=== PATIENT | male | born 1960 | race African-American/Black ===

== ENCOUNTER → 2017-01-07 | Outpatient (CLI) | payer OTHER ==
[2017-01-07 15:54] LABS: CH 30.4; CHCM 34.8; HCT 43.6 % (39.0-53.0); HDW 2.85; HGB 15.9 gm/dL (13.0-17.5); MCH 31.9 pg (25.0-35.0); MCHC 36.4 g/dL (31.0-37.0); MCV 87.7 fL (80.0-100.0); Mean Platelet Volume 6.9; RBC 4.97 m/uL (4.30-5.90); RDW 13.6 % (11.5-15.5); WBC 6.6 k/uL (3.8-10.6)
[2017-01-07 15:57] LABS: Appearance,Urine Clear (Clear); Bilirubin,Urine Negative (Negative); Glucose,Urine (UA) Negative (Negative); Ketones,Urine Negative (Negative); Leukocyte Esterase,Urine Negative (Negative); Nitrite,Urine Negative (Negative); PH, Urine 6.5 (5.0-8.0); Particle Count 613; Protein,Urine 1+ (Negative); Specific Gravity,Urine 1.014 (1.001-1.035); Squamous Epithelial Cell,Urine <1 /hpf (0-4); UA Billing (MACRO vs. MICRO) MICRO; WBC,Urine 1 /hpf (0-5)
[2017-01-07 16:02] LABS: Partial Thromboplastin Time 27.5 sec (22.0-30.0); Prothrombin Time 10.2 sec (9.0-12.0)
[2017-01-07 16:10] LABS: ALT 93 U/L (21-72); AST 76 U/L (17-59); Alkaline Phosphatase 129 U/L (38-126); Anion Gap 10 mmol/L; Blood Urea Nitrogen 12 mg/dL (9-20); Calcium 9.9 mg/dL (8.4-10.2); Carbon Dioxide 36 mmol/L (22-30); Chloride 94 mmol/L (98-107); Glucose 118 mg/dL (74-99); Non-African American GFR(MDRD) >60 (>60 ml/min/1.73 sqM); Potassium 3.8 mmol/L (3.5-5.1); Sodium 140 mmol/L (137-145); Total Bilirubin 0.8 mg/dL (0.2-1.3)
== END | disposition home or self-care (01) ==
LOC: LABPAT 15:08
PROVIDERS: ATTEND Orthopaedic Surgery
DX: Z01.810 Encounter for preprocedural cardiovascular examination (principal); M17.12 Unilateral primary osteoarthritis, left knee; Z01.812 Encounter for preprocedural laboratory examination
CPT/HCPCS: 80053; 81001; 85027; 85610; 85730; 87070

== ENCOUNTER 2017-01-25 07:30 | Inpatient (IN) | payer OTHER ==
[2017-01-12 15:24] VITALS: BMI 34.9
[~2017-01-25 07:30] MED LIST: ACETAMINOPHEN TAB 500 MG TAB PO ONE; DEXAMETHASONE SOD PHOSPHATE 10 MG/ML 1 ML VIAL IV ONE; MELOXICAM 7.5 MG TAB PO ONE; MIDAZOLAM 2 MG/2 ML VIAL IV PRN; ONDANSETRON 4 MG/2 ML VIAL IVP ONE; SCOPOLAMINE 1.5MG/72HR PATCH TRANSDERM ONE; TRANEXAMIC ACID 1,000 MG in SODIUM CHLORIDE 0.9% 100 ML IVPB ONE; VANCOMYCIN 1,500 MG in SODIUM CHLORIDE 0.9% 250 ML IVPB ONE; ceFAZolin 2 GM in SODIUM CHLORIDE 0.9% 100 ML IVPB ONE
[2017-01-25] MEDS: LACTATED RINGERS 1,000 ML IV SCH (09:20)
[2017-01-25] MEDS ORDERED: LIDOCAINE 1% 20 ML VIAL (10MG/ML) FOR IV START INTRADERMA ONE (09:26)
[2017-01-25] MEDS ORDERED: fentaNYL (PF) 50 MCG/ML 2 ML AMP IVP ONE (10:11)
[2017-01-25] MEDS ORDERED: ROPIVACAINE 1,100 MG, SODIUM CHLORIDE 0.9% 330 ML MISCELLANE PRN ×2 (10:39)
--- NOTE | 2017-01-25 10:42 | P.ONQ ---
Anesthesiology Proc Note - PNB - Peripheral Nerve Block Performed Left Adductor Canal Infusion Procedure Start Time: 10:10 Procedure Stop Time: 10:20 Indication: Acute Post-Operative Pain Specifically requested for management of pain by DrChandrakant: Mitesh Le Sedation Type: Sedate with meaningful contact maintained Preparation: Sterile Dressing Position: Supine Catheter: Indwelling Needle Types: Other (see comment) Needle Size: 100mm (4") (PAJUNK) Needle Gauge: 20 Technique: Ultrasound Injectate: 0.5% Ropivacaine (see comment for volume) (20 ml) Blood Aspirated: No Pain Paresthesia on Injection Noted: No Resistance on Injection: Normal Events: Uneventful and Well Tolerated
[2017-01-25] MEDS ORDERED: fentaNYL (PF) 50 MCG/ML 2 ML AMP ONE (11:04)
[2017-01-25] MEDS ORDERED: PHENYLEPHRINE-0.9% NACL SYG 1 MG/10 ML SYRINGE ONE (11:04)
[2017-01-25] MEDS ORDERED: MIDAZOLAM 2 MG/2 ML VIAL ONE (11:04)
[2017-01-25] MEDS ORDERED: PROPOFOL 10 MG/ML 20 ML VIAL IV ONE (11:04)
[2017-01-25] MEDS ORDERED: SODIUM CHLORIDE 0.9% 100 ML BAG ONE (11:04)
[2017-01-25] MEDS ORDERED: ePHEDrine SULFATE/0.9% NACL/PF 50 MG/5 ML SYRINGE IV ONE (11:04)
[2017-01-25] MEDS ORDERED: TRANEXAMIC ACID 1,000 MG/10 ML VIAL ONE (11:04)
[2017-01-25] MEDS ORDERED: ROPIVACAINE 246.25 MG, EPINEPHrine 0.5 MG, KETOROLAC 30 MG, cloNIDine HCL/PF 80 MCG, WA... MISCELLANE ONE ×5 (11:10)
[2017-01-25] MEDS ORDERED: ceFAZolin 3,000 MG in SODIUM CHLORIDE 0.9% IRRIGATIO 3,000 ML IRRIGATION ONE (11:46)
[2017-01-25] MEDS ORDERED: LACTATED RINGERS 1,000 ML IV ONE ×2 (12:13)
--- NOTE | 2017-01-25 13:38 | P.OP ---
Date of Procedure: 01/25/17 Preoperative Diagnosis: Failed left total knee arthroplasty Postoperative Diagnosis: Failed left total knee arthroplasty Procedure(s) Performed: Revision left total knee arthroplasty Implants: [employer] Legion Oxinium constrained femoral component size 5, left [employer] Legion press-fit stem, straight 14 mm x 160 mm [employer] legion revision tibial baseplate size 5, left [employer] Legion offset teacher education director, 6 mm [employer] Legion press-fit stem, straight 14 mm x 160 mm Ly[employer]hew size 18 mm Mary Anne II XLPE constrained articular insert, size 5-6 All components were cemented using Leora Simplex P bone cement with tobramycin 2 The articulation is ceramic on polyethylene. Anesthesia: spinal Surgeon: Mitesh Le Legal Summer Intern #1: Grace Cox Estimated Blood Loss (ml): 100 Pathology: other (Frozen section and cultures 2) Condition: stable Disposition: PACU Indications for Procedure: This is a 56-year-old gentleman whose had a prior left total knee arthroplasty. He continues to have pain and instability in his left knee. X-rays demonstrate gross loosening of the tibial and femoral components. After discussion of the surgical nonsurgical treatment options with her at length, he wishes to proceed with revision left total knee arthroplasty and informed consent was obtained. Operative Findings: The operative findings show a grossly loose tibial component. Frozen section demonstrated no acute inflammation. Description of Procedure: Patient was seen in the preoperative area consent was reviewed and operative site was marked with a skin marker. An adductor canal pain catheter was placed by anesthesia in the preoperative area. Patient was then brought to the operating room and given preoperative antibiotics intravenously. A spinal anesthetic was administered by the anesthesia department. A tourniquet was placed on the upper thigh and the lower extremity was prepped and draped in usual sterile fashion. A gram of transexamic acid was given. A universal timeout was then performed which confirmed the patient's name, surgical site, ALLERGIES, and consent. The lower extremity was then exsanguinated and tourniquet was inflated to 250 mmHg. A standard and anterior midline approach to the knee was performed, with the prior scar being excised. The skin and subcutaneous tissue was dissected down to the patellar tendon. A medial parapatellar arthrotomy was then performed. The knee was then extended. The patella was difficult to yazmin, and a quadriceps snip was performed. There was a moderate amount of clear fluid in the knee joint, and this was cultured 2. Synovium from the knee was removed, and sent for frozen section. The frozen section came back as no acute inflammation. Scar tissue was extensively debrided from the knee. The patella was then everted and the knee was flexed. On gross visual inspection the femoral component was well fixed as well as patellar component. The tibial component was grossly loose with significant subsidence. The femoral component was then removed without significant bone loss. This was done by disrupting the implant cement interface with a small oscillating saw. After the femoral component was removed, the tibial component was then removed with a bone punch. There is found to be significant subsidence and loss of intramedullary bone, although the cortical bone of the tibia was well preserved. The femoral canal was then opened with the appropriate drill. A wood milling machine hand was then used to ream the femoral canal to the final size of 20 mm x 120 mm. The intramedullary femoral cutting guide was then placed and set for 6 of valgus. The distal femoral cutting block was then pinned in place, and the distal femur was then cut. A very minimal amount of bone was removed. The cutting block was then removed and the cut was checked for flatness. Next, the sizing guide was then placed and set for 3 external rotation based off of the epicondylar axis and Whitesides line. After the femur was sized, the appropriate 4-in-1 cutting block was then pinned in place. The anterior condyles were cut without notching. The posterior and chamfer cuts were performed while protecting the collateral ligaments. Next, the box cutting guide was then placed. The appropriate reamer was used to open up the box, as well as appropriate chisel. The cutting block was then removed as well as the femoral reamer. Attention was then directed to the tibia. The tibial canal was located with the appropriate drill. This was then followed by hand reamers to up to the size of 14 mm x 160 mm . The intramedullary tibial cutting guide was then placed, set for the appropriate rotation, slope, and depth of resection. The proximal tibia cutting guide was then pinned in place. Proximal tibia was then cut and sized. The offset reamer was utilized due to the location of the tibial canal in relation to the tibial component. Next trials were then placed with the appropriate-sized insert. The knee was able to fully extend and flex to 120 and was stable throughout all range of motion. The patellar component was then inspected and found to be well fixed. The cut surfaces of bone were then irrigated with pulsatile lavage. The posterior structures were injected with the ropivacaine solution. The knee was also irrigated with Irrisept solution. The components were then opened, the cement was mixed, and the components were then cemented in place. The cement was allowed to harden with the knee in full extension. While the cement was hardening, the remaining soft tissues were then injected with a ropivacaine solution, which consisted of 246.25 mg of ropivacaine, 0.5 mg of epinephrine, 30 mg of Toradol, 80 g of clonidine, and 48.45 mL of sterile water, for a total of 100 mL of fluid injected. After the cemented hardened. The tourniquet was released, and hemostasis was obtained. A second gram of transexamic acid was given. The knee was again irrigated. The knee was again taken through range of motion and found to be stable throughout all range of motion of 0-130 , and the patella tracked normally. The fascia was then closed with #2 strata fix suture. The subcutaneous tissue was closed with 3-0 Vicryl and 3-0 strata fix. Dermabond tape was used for the skin and placed with the knee in flexion. The patient was placed in a sterile dressing. Patient was then transferred to recovery room in stable condition. The assistant manager of operations KLEVER Manriquez was required due the complexity surgery and the need for a skilled neurosurgical nurse. She assisted in positioning, draping, retraction, and closure of the wound.
[2017-01-25] MEDS ORDERED: DIAZEPAM 5 MG TAB PO PRN ×2 (14:03)
[2017-01-25] MEDS ORDERED: HYDROcodone/APAP 7.5-325MG 1 EACH TAB PO PRN ×2 (14:03)
[2017-01-25] MEDS ORDERED: HYDROmorphone 1 MG/ML 1 ML SYRINGE IVP PRN ×2 (14:03)
[2017-01-25] MEDS ORDERED: NA PHOS,M-B/NA PHOS,DI-BA 133 ML ENEMA RECTAL PRN (14:03)
[2017-01-25] MEDS ORDERED: ONDANSETRON 4 MG/2 ML VIAL IVP PRN (14:03)
[2017-01-25] MEDS ORDERED: MAGNESIUM HYDROXIDE 2,400 MG/10 ML CUP PO PRN (14:03)
[2017-01-25] MEDS ORDERED: NALOXONE 0.4 MG/ML 1 ML VIAL IV PRN (14:03)
[2017-01-25] MEDS ORDERED: BISACODYL 10 MG SUPP RECTAL PRN (14:03)
--- NOTE | 2017-01-25 14:33 | XR ---
EXAMINATION TYPE: XR knee limited LT DATE OF EXAM: 01/25/2017 CLINICAL HISTORY: EXAMINATION TYPE: XR knee limited LT DATE OF EXAM: 01/25/2017 CLINICAL HISTORY: Postoperative evaluation Two views of the left knee are submitted. Identified are changes of total knee arthroplasty with fem oral and tibial components appearing well seated. Postsurgical soft tissue changes are noted. Align ment is anatomic.
[2017-01-25] MEDS: HYDROmorphone 1 MG/ML 1 ML SYRINGE IVP PRN ×6 (14:34→20:09)
[2017-01-25] MEDS: SODIUM CHLORIDE 0.9% 1,000 ML IV SCH (16:35)
[2017-01-25] MEDS: ceFAZolin 2 GM in SODIUM CHLORIDE 0.9% 100 ML IVPB SCH ×2 (17:37→23:30)
[2017-01-25] MEDS: hydrOXYzine PAMOATE 25 MG CAP PO PRN (18:04)
[2017-01-25] MEDS: oxyCODONE-APAP 10-325MG 1 EACH TAB PO PRN ×2 (18:08→22:17)
[2017-01-25] MEDS ORDERED: SERTRALINE 50 MG TAB PO PRN (20:37)
[2017-01-25] MEDS ORDERED: BACILLUS COAGULANS PO SCH (20:45)
[2017-01-25] MEDS ORDERED: hydrOXYzine PAMOATE 25 MG CAP PO PRN (21:57)
[2017-01-25] MEDS: amLODIPine 10 MG TAB PO SCH (22:03)
[2017-01-25] MEDS: NICOTINE 21MG/24HR PATCH TRANSDERM SCH (22:03)
[2017-01-25] MEDS: SENNOSIDES-DOCUSATE SODIUM 1 EACH TAB PO SCH (22:03)
[2017-01-25] MEDS: clonazePAM 0.5 MG TAB PO SCH (22:04)
[2017-01-25] MEDS: oxyCODONE ER 15 MG TAB.ER.12H PO SCH (22:04)
[2017-01-25] MEDS: cloNIDine HCL 0.2 MG TAB PO SCH (22:04)
[2017-01-25] MEDS: MIRTAZAPINE 15 MG TAB PO SCH (22:05)
[2017-01-25] MEDS: ASPIRIN 325 MG TAB PO SCH (22:05)
[2017-01-25] MEDS: CYCLOBENZAPRINE 10 MG TAB PO PRN (23:30)
[2017-01-26] MEDS: oxyCODONE-APAP 10-325MG 1 EACH TAB PO PRN ×5 (02:32→20:53)
[2017-01-26] MEDS: SODIUM CHLORIDE 0.9% 1,000 ML IV SCH (05:42)
[2017-01-26] MEDS: LACTATED RINGERS 1,000 ML IV SCH (06:13)
[2017-01-26] MEDS: hydrOXYzine PAMOATE 25 MG CAP PO PRN ×4 (06:27→20:46)
[2017-01-26 07:52] LABS: ALT 72 U/L (21-72); AST 44 U/L (17-59); Alkaline Phosphatase 76 U/L (38-126); Anion Gap 10 mmol/L; Blood Urea Nitrogen 21 mg/dL (9-20); Carbon Dioxide 25 mmol/L (22-30); Chloride 101 mmol/L (98-107); Glucose 132 mg/dL (74-99); Non-African American GFR(MDRD) >60 (>60 ml/min/1.73 sqM); Potassium 4.2 mmol/L (3.5-5.1); Sodium 136 mmol/L (137-145); Total Bilirubin 0.6 mg/dL (0.2-1.3); Total Protein 6.4 g/dL (6.3-8.2)
[2017-01-26 08:06] LABS: Basophils # (A) 0.1 k/uL (0-0.2); Basophils % (A) 1 %; CH 30.6; CHCM 32.7; Eosinophils # (A) 0.1 k/uL (0-0.7); Eosinophils % (A) 0 %; HDW 2.65; Luc # (Auto) 0.24; Luc % (Auto) 1; Lymphocytes # (A) 1.5 k/uL (1.0-4.8); Lymphocytes % (A) 9 %; MCH 30.3 pg (25.0-35.0); MCHC 32.2 g/dL (31.0-37.0); Mean Platelet Volume 7.9; Monocytes # (A) 0.9 k/uL (0-1.0); Monocytes % (A) 5 %; Neutrophils # (A) 14.7 k/uL (1.3-7.7); Neutrophils % (A) 84 %; RBC 3.93 m/uL (4.30-5.90); RDW 14.7 % (11.5-15.5); WBC 17.6 k/uL (3.8-10.6); WBC (Perox) 18.32
[2017-01-26 08:08] LABS: HGB 11.9 gm/dL (13.0-17.5); MCV 94.1 fL (80.0-100.0)
[2017-01-26] MEDS: NICOTINE 21MG/24HR PATCH TRANSDERM SCH (08:41)
[2017-01-26] MEDS: ASPIRIN 325 MG TAB PO SCH ×2 (08:41→20:41)
[2017-01-26] MEDS: clonazePAM 0.5 MG TAB PO SCH ×2 (08:41→20:41)
[2017-01-26] MEDS: ceFAZolin 2 GM in SODIUM CHLORIDE 0.9% 100 ML IVPB SCH ×2 (08:42→15:25)
[2017-01-26] MEDS: cloNIDine HCL 0.2 MG TAB PO SCH ×2 (08:43→20:41)
[2017-01-26] MEDS: MELOXICAM 7.5 MG TAB PO SCH (08:43)
[2017-01-26] MEDS: HYDROCHLOROTHIAZIDE 25 MG TAB PO SCH (08:44)
[2017-01-26] MEDS ORDERED: hydrOXYzine PAMOATE 25 MG CAP PO SCH (09:00)
--- NOTE | 2017-01-26 09:02 | P.PN ---
Subjective Principal diagnosis: This is a 56-year-old male who is status post left revision total knee arthroplasty. This is postoperative day #1. Patient is seen and evaluated at bedside with Dr. Mitesh Le. Patient has noticed quite a bit of drainage from the left knee. Otherwise patient has no new complaints today. Objective - Vital Signs Vital signs: Vital Signs Temp 98.2 F 01/26/17 08:34 Pulse 99 01/26/17 08:34 Resp 16 01/26/17 08:34 BP 137/88 01/26/17 08:34 Pulse Ox 97 01/26/17 08:34 Intake & Output 01/25/17 01/26/17 01/26/17 18:59 06:59 18:59 Intake Total 1751 1460 Output Total 100 Balance 1651 1460 Weight 104.326 kg Intake: IV 1751 Intake, IV Titration 870 Amount Sodium Chloride 0.9% 1, 770 000 ml @ 70 mls/hr IV . [id number] [facility] Rx#:[id number] ceFAZolin 2 gm In Sodium 100 Chloride 0.9% 100 ml @ 100 mls/hr IVPB Q8HR [facility] Rx#:[id number] Oral 590 Output: Estimated Blood Loss 100 Other: # Voids 1 - Exam Vital signs are stable. Patient is in no acute distress and is alert and oriented 3. Calf is soft and nontender. Incision is clean and intact. There was a moderate amount of drainage on the dressing when it was changed. Compartments are soft. Neurovascular status intact. Patient has full foot and ankle motion. - Labs CBC & Chem 7: 01/26/17 07:16 01/26/17 07:16 Labs: Abnormal Lab Results - Last 24 Hours (Table) 01/26/17 01/26/17 Range/Units 07:16 07:16 WBC 17.6 H (3.8-10.6) k/uL RBC 3.93 L (4.30-5.90) m/uL Hgb 11.9 L D (13.0-17.5) gm/dL Hct 37.0 L (39.0-53.0) % Neutrophils # 14.7 H (1.3-7.7) k/uL Sodium 136 L (137-145) mmol/L BUN 21 H (9-20) mg/dL Glucose 132 H (74-99) mg/dL Microbiology - Last 24 Hours (Table) 01/25/17 11:39 Gram Stain - Preliminary Knee - Left Wound Culture - Preliminary 01/25/17 11:39 Gram Stain - Preliminary Knee - Left Wound Culture - Preliminary 01/25/17 11:39 Anaerobic Culture - Preliminary Knee - Left 01/25/17 11:39 Anaerobic Culture - Preliminary Knee - Left Assessment and Plan (1) Primary osteoarthritis of left knee Status: Acute (2) S/P total knee arthroplasty Status: Acute Plan: #1 Continue with routine postoperative care. Hold CPM until drainage subsides. #2 Anticoagulation with aspirin. #3 Physical therapy today. #4 Appreciate input from medicine. #5 Anticipate discharge to rehab Tuesday.
--- NOTE | 2017-01-26 12:02 | CONS ---
REASON FOR CONSULTATION: Advice regarding hypertension and other multiple medical issues requested by Dr. Le. HISTORY OF PRESENT ILLNESS: This 56-year-old gentleman with a past medical history of hypertension, history of hepatitis C, history of anxiety and depression being followed by Dr. Mascorro in the outpatient setting. Patient underwent revision of left knee joint arthroplasty for failed left total knee arthroplasty by Dr. Le. There is no history of any fever, rigors or chills. No history of headache, loss of consciousness or seizures. PAST MEDICAL HISTORY: Hypertension, history of DJD, history of hepatitis C, history of anxiety and depression. Medications prior to admission include home medications are: 1. Oxycodone 10 mg q.4 p.r.n. 2. Oxycodone ER 30 mg p.o. q.h.s. 3. Vistaril 25 mg b.i.d. and p.r.n. 4. Klonopin 0.5 mg p.o. b.i.d. 5. Catapres 0.2 b.i.d. 6. Norvasc 10 mg q.h.s. 7. Naprosyn 500 mg p.o. b.i.d. p.r.n. 8. Remeron 15 mg p.o. q.h.s. 9. Imodium A-D 2 mg p.o. b.i.d. 10. Motrin 600 mg p.o. q.h.s. p.r.n. 11. Hydrochlorothiazide 25 mg p.o. daily. 12. Flonase 1 spray daily. 13. Pennsaid 1 spray topical q.4 p.r.n. 14. Flexeril 10 mg t.i.d. p.r.n. 15. Bacillus coagulans 1 tablet p.o. daily. Allergies are none. FAMILY HISTORY: No history of any heart disease or strokes in the family. 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 No history of smoking. No history of alcohol intake. REVIEW OF SYSTEMS: ENT: No diminished hearing or diminished vision. CARDIOVASCULAR SYSTEM: As mentioned earlier. RESPIRATORY SYSTEM: As mentioned earlier. GI: No nausea. : No dysuria or urinary retention. NERVOUS SYSTEM: No numbness or weakness. ALLERGY/IMMUNOLOGY: No asthma or hayfever. MUSCULOSKELETAL: As mentioned. HEMATOLOGY/ONCOLOGY: No history of anemia. ENDOCRINE: No history of diabetes or hypothyroidism. CONSTITUTIONAL: As mentioned earlier. DERMATOLOGY: Negative. RHEUMATOLOGY: Negative. PSYCHIATRY: As mentioned earlier. PHYSICAL EXAMINATION: Patient is alert and oriented x3. Pulse is 114. Blood pressure is 107/58, respirations 16, temperature 96.1, pulse ox 92% on room air. HEENT: Conjunctivae normal. NECK: No jugular venous distention. CARDIOVASCULAR: S1 and S2 muffled. RESPIRATORY: Breath sounds diminished at the bases. No rhonchi, no crackles. ABDOMEN: Soft, nontender. LEGS: Status post knee arthroplasty. NERVOUS SYSTEM: Higher function as mentioned. Moves all 4 limbs. No focal deficits. LYMPHATICS: No lymphadenopathy of the neck, axillae or groin. SKIN: No ulcers, rashes or bleeding. Labs are at this time shows previous labs available on 01/07 showed AST 76, ALT 93 and C reactive protein is 11.5. The UA noted. ASSESSMENT: 1. Status post revision left total knee arthroplasty for failed left total knee arthroplasty. 2. Increased AST, ALT with chronic hepatitis C. 3. History of hypertension. 4. History of degenerative joint disease. 5. Anxiety and depression. RECOMMENDATIONS AND DISCUSSION: In this 56-year-old gentleman who presented with multiple complex medical issues, we will monitor the patient closely. Continue the current medications. Continues symptomatic treatment. Resume the home medications, Habitrol patch, DVT prophylaxis, incentive spirometry. Will follow the patient closely. Patient may be asked to follow up with Dr. Mascorro closely after discharge. Thank you Dr. Le for letting us participate in the care of this patient. I recommend a repeat CBC, CMP to ensure normalcy. The rest of the follow up by Dr. Mascorro in the outpatient setting. MADELINED
[2017-01-26 12:04] LABS: Appearance,Urine Clear (Clear); Bilirubin,Urine Negative (Negative); Glucose,Urine (UA) Negative (Negative); Ketones,Urine Negative (Negative); Leukocyte Esterase,Urine Negative (Negative); Nitrite,Urine Negative (Negative); PH, Urine 5.5 (5.0-8.0); Protein,Urine Trace (Negative); Specific Gravity,Urine 1.018 (1.001-1.035); UA Billing (MACRO vs. MICRO) CHEM; Urobilinogen,Urine <2.0 mg/dL (<2.0)
--- NOTE | 2017-01-26 12:27 | P.PN ---
Progress Note - Text . Postoperative day # 1 status post total knee arthroplasty, under spinal anesthesia, and adductor canal catheter placed for postoperative analgesia, currently at ropivacaine 0.2% 8 mL per hour and continuous infusion, catheter site local. There is no erythema, and there is no tenderness, visual analogue scale is 8/10, patient using oral pain medication for breakthrough pain , OxyContin extended release 15 mg, and Dilaudid IV, . Assessment and plan= Acute postoperative pain, patient had a history of chronic pain syndrome , and he was treated as an outpatient with oral pain medication oxycodone 30 mg every 6 hours , patient currently on OxyContin 15 mg , and adductor canal catheter for pain control, we'll continue the same management.
[2017-01-26] MEDS: CYCLOBENZAPRINE 10 MG TAB PO PRN ×2 (12:59→21:11)
[2017-01-26] MEDS: HYDROmorphone 1 MG/ML 1 ML SYRINGE IVP PRN ×2 (14:22→18:54)
[2017-01-26] MEDS: FLUTICASONE 50MCG/SPRAY NASAL 16GM EA NOSTRIL SCH (15:02)
--- NOTE | 2017-01-26 18:33 | PN ---
DATE OF SERVICE: 01/26/17 This 56 -year-old gentleman admitted after revision of left total knee joint arthroplasty is improving significantly. The patient is being closely monitored. No chest pain. No palpitations. No fever. White count is elevated. On exam, the patient is alert and oriented times three. Pulse 99. Blood pressure 137/80. Respiratory rate 16. Temperature 98.2 degrees. Pulse ox 97 % on room air. HEENT: Conjunctivae normal. Oral mucosa moist. Neck: No JVD. CARDIOVASCULAR: S1, S2. Respiratory: Breath sounds diminished at the bases. No rhonchi. Abdomen soft, nontender. LEGS: Status post surgery. DAMAGE APPRAISER: No focal deficits. LABS: WBC 7.7, hemoglobin 9.3. ASSESSMENT: 1. Status post revision left total knee joint arthroplasty with failed left total knee arthroplasty. 2. Increased WBC. 3. Increased AST/ALT with chronic hepatitis C. 4. History of hypertension. 5. History of degenerative joint disease. 6. Anxiety, depression. RECOMMENDATIONS AND DISCUSSION: Recommend to continue the current medications, continue symptomatic treatment, otherwise I recommend UA which is normal. I also recommend repeat labs in the morning. Continue the rest of the medications. Follow-up with Orthopedic surgery as well. Further recommendations to follow. MADELINED
[2017-01-26] MEDS: amLODIPine 10 MG TAB PO SCH (20:41)
[2017-01-26] MEDS: MIRTAZAPINE 15 MG TAB PO SCH (20:42)
[2017-01-26] MEDS: oxyCODONE ER 15 MG TAB.ER.12H PO SCH (20:42)
[2017-01-26] MEDS: SENNOSIDES-DOCUSATE SODIUM 1 EACH TAB PO SCH (20:42)
[2017-01-27] MEDS: ceFAZolin 2 GM in SODIUM CHLORIDE 0.9% 100 ML IVPB SCH ×2 (00:24→09:08)
[2017-01-27] MEDS: HYDROmorphone 1 MG/ML 1 ML SYRINGE IVP PRN ×3 (01:01→22:49)
[2017-01-27] MEDS: hydrOXYzine PAMOATE 25 MG CAP PO PRN ×3 (05:53→18:01)
[2017-01-27] MEDS: oxyCODONE-APAP 10-325MG 1 EACH TAB PO PRN ×3 (05:53→18:01)
[2017-01-27 07:02] LABS: Basophils # (A) 0.1 k/uL (0-0.2); Basophils % (A) 1 %; CH 31.1; CHCM 33.9; Eosinophils # (A) 0.5 k/uL (0-0.7); Eosinophils % (A) 4 %; HCT 38.7 % (39.0-53.0); HDW 2.65; HGB 12.6 gm/dL (13.0-17.5); Luc % (Auto) 2; Lymphocytes # (A) 3.2 k/uL (1.0-4.8); Lymphocytes % (A) 28 %; MCH 29.9 pg (25.0-35.0); MCHC 32.4 g/dL (31.0-37.0); MCV 92.4 fL (80.0-100.0); Mean Platelet Volume 7.9; Monocytes # (A) 0.7 k/uL (0-1.0); Monocytes % (A) 6 %; Neutrophils # (A) 6.7 k/uL (1.3-7.7); Neutrophils % (A) 59 %; RBC 4.19 m/uL (4.30-5.90); WBC 11.3 k/uL (3.8-10.6); WBC (Perox) 11.02
[2017-01-27] MEDS: SODIUM CHLORIDE 0.9% 1,000 ML IV SCH ×2 (08:24→09:17)
[2017-01-27] MEDS: LACTATED RINGERS 1,000 ML IV SCH (08:25)
--- NOTE | 2017-01-27 08:54 | P.PN ---
Subjective Principal diagnosis: Status post revision left total knee arthroplasty. This is a 56-year-old male who is status post left revision total knee arthroplasty. This is postoperative day #2. Patient states his pain is under control. Patient is still noticed some drainage from the wound. Patient has been up and walking without difficulty. Patient has no new complaints today. Objective - Vital Signs Vital signs: Vital Signs Temp 98.2 F 01/27/17 02:08 Pulse 107 H 01/27/17 02:08 Resp 17 01/27/17 02:08 BP 139/74 01/27/17 02:08 Pulse Ox 95 01/27/17 02:08 Intake & Output 01/26/17 01/27/17 01/27/17 18:59 06:59 18:59 Intake Total 920 210 600 Output Total 600 Balance 920 -390 600 Intake: Intake, IV Titration 560 210 Amount Sodium Chloride 0.9% 1, 560 210 000 ml @ 70 mls/hr IV . [id number] [facility] Rx#:[id number] Oral 360 600 Output: Urine 600 Other: Voiding Method Toilet Urinal - Exam Vital signs are stable. Patient is in no acute distress and is alert and oriented 3. Calf is soft and nontender. Incision is clean and intact. There was a moderate amount of drainage on the dressing when it was changed and this has improved since yesterday. Compartments are soft. Neurovascular status intact. Patient has full foot and ankle motion. - Labs CBC & Chem 7: 01/27/17 06:37 01/26/17 07:16 Labs: Abnormal Lab Results - Last 24 Hours (Table) 01/26/17 01/27/17 Range/Units 11:30 06:37 WBC 11.3 H (3.8-10.6) k/uL RBC 4.19 L (4.30-5.90) m/uL Hgb 12.6 L (13.0-17.5) gm/dL Hct 38.7 L (39.0-53.0) % Urine Protein Trace H (Negative) Microbiology - Last 24 Hours (Table) 01/25/17 11:39 Gram Stain - Preliminary Knee - Left Wound Culture - Preliminary Assessment and Plan (1) Primary osteoarthritis of left knee Status: Acute (2) S/P total knee arthroplasty Status: Acute Plan: #1 Continue with routine postoperative care. Hold CPM until drainage subsides. #2 Anticoagulation with aspirin. #3 Physical therapy today. #4 Appreciate input from medicine. #5 Anticipate discharge to rehab Tuesday.
[2017-01-27] MEDS: clonazePAM 0.5 MG TAB PO SCH ×2 (09:01→21:19)
[2017-01-27] MEDS: HYDROCHLOROTHIAZIDE 25 MG TAB PO SCH (09:02)
[2017-01-27] MEDS: ASPIRIN 325 MG TAB PO SCH ×2 (09:02→21:19)
[2017-01-27] MEDS: MELOXICAM 7.5 MG TAB PO SCH (09:02)
[2017-01-27] MEDS: cloNIDine HCL 0.2 MG TAB PO SCH ×2 (09:02→21:19)
[2017-01-27] MEDS: NICOTINE 21MG/24HR PATCH TRANSDERM SCH (09:03)
[2017-01-27] MEDS: FLUTICASONE 50MCG/SPRAY NASAL 16GM EA NOSTRIL SCH (09:12)
--- NOTE | 2017-01-27 15:33 | P.PN ---
Subjective This 56-year-old gentleman admitted after left total knee arthroplasty is being closely monitored. WBC was increased. Improving currently. No chest pain palpitation no fever. Objective - Vital Signs Vital signs: Vital Signs Temp 98.3 F 01/27/17 15:00 Pulse 114 H 01/27/17 15:00 Resp 16 01/27/17 15:00 BP 168/117 01/27/17 15:00 Pulse Ox 90 L 01/27/17 15:00 Intake & Output 01/26/17 01/27/17 01/27/17 18:59 06:59 18:59 Intake Total 481 803 0927 Output Total 600 Balance 920 -390 1125 Intake: Intake, IV Titration 560 210 Amount Sodium Chloride 0.9% 1, 560 210 000 ml @ 70 mls/hr IV . [id number] [facility] Rx#:[id number] Oral 360 1125 Output: Urine 600 Other: Voiding Method Toilet Urinal - Exam On exam, alert and oriented x3. HEENT: Conjunctivae normal. eyes normal. NECK: No JVD. No thyroid enlargement. No LNs CARDIOVASCULAR: S1, S2 muffled. No murmur RESPIRATION: Breath sounds diminished in the bases. No rhonchi or crackles. No bronchial breathing. ABDOMEN: Soft, nontender . No guarding. no masses palpable. No ascites, No hepatosplenomegaly.Bowel sounds heard. LEGS: Status post left total knee joint arthroplasty NERVOUS SYSTEM: Cranial N 2-12 grossly normal. Moves all 4 limbs. No focal deficits. No sensory deficit. No signs of cerebellar dysfucntion. Skin: no ulcer no rash Joints: No active swelling. No inflammation. Lymphatic system. No LN neck axilla or groin. - Labs CBC & Chem 7: 01/27/17 06:37 01/26/17 07:16 Labs: Abnormal Lab Results - Last 24 Hours (Table) 01/27/17 Range/Units 06:37 WBC 11.3 H (3.8-10.6) k/uL RBC 4.19 L (4.30-5.90) m/uL Hgb 12.6 L (13.0-17.5) gm/dL Hct 38.7 L (39.0-53.0) % Microbiology - Last 24 Hours (Table) 01/25/17 11:39 Anaerobic Culture - Preliminary Knee - Left 01/25/17 11:39 Gram Stain - Final Knee - Left Wound Culture - Final 01/25/17 11:39 Gram Stain - Final Knee - Left Wound Culture - Final Assessment and Plan Plan: Assessment 1. Status post revision left total knee arthroplasty. Next #2. Increased WBC 3. Increased AST ALT with chronic hepatitis C Plan In this 56-year-old gentleman who was admitted after knee joint arthroplasty we will recommend to continue the current medications. The WBC is improving. Probably reactive in nature. Recommended continue current medications monitor labs closely. Outpatient follow-up is suggested. Continue DVT GI prophylaxis.(
[2017-01-27] MEDS: amLODIPine 10 MG TAB PO SCH (21:19)
[2017-01-27] MEDS: SENNOSIDES-DOCUSATE SODIUM 1 EACH TAB PO SCH (21:19)
[2017-01-27] MEDS: MIRTAZAPINE 15 MG TAB PO SCH (21:19)
[2017-01-27] MEDS: oxyCODONE ER 15 MG TAB.ER.12H PO SCH (21:19)
[2017-01-28] MEDS: hydrOXYzine PAMOATE 25 MG CAP PO PRN ×2 (03:31→07:29)
[2017-01-28] MEDS: oxyCODONE-APAP 10-325MG 1 EACH TAB PO PRN ×2 (03:32→07:29)
[2017-01-28 06:19] LABS: Basophils # (A) 0.1 k/uL (0-0.2); Basophils % (A) 1 %; CH 31.1; CHCM 33.8; Eosinophils # (A) 0.6 k/uL (0-0.7); Eosinophils % (A) 6 %; HCT 36.7 % (39.0-53.0); HDW 2.66; HGB 12.1 gm/dL (13.0-17.5); Luc # (Auto) 0.16; Luc % (Auto) 2; Lymphocytes # (A) 2.7 k/uL (1.0-4.8); Lymphocytes % (A) 26 %; MCH 30.5 pg (25.0-35.0); MCV 92.5 fL (80.0-100.0); Mean Platelet Volume 7.6; Monocytes # (A) 0.6 k/uL (0-1.0); Monocytes % (A) 6 %; Neutrophils # (A) 6.3 k/uL (1.3-7.7); Neutrophils % (A) 60 %; RBC 3.97 m/uL (4.30-5.90); RDW 14.8 % (11.5-15.5); WBC 10.4 k/uL (3.8-10.6); WBC (Perox) 10.95
[2017-01-28] MEDS: SODIUM CHLORIDE 0.9% 1,000 ML IV SCH (06:53)
[2017-01-28] MEDS: LACTATED RINGERS 1,000 ML IV SCH (06:53)
[2017-01-28 07:24] VITALS: BP 144/90; PULSE 104; RESP 12; TEMP 98.3
--- NOTE | 2017-01-28 07:47 | P.DS ---
Providers Date of admission: 01/25/17 08:13 Expected date of discharge: 01/28/17 Attending physician: Mitesh Le Consults: 01/25/17 14:03 Consult Physician Routine Consulting Provider: Edison Mascorro Consult Reason/Comments: medical management Do you want consulting provider notified?: Yes 01/25/17 15:59 Consult Physician Routine Consulting Provider: Yanelis Bolanos Consult Reason/Comments: medical management Do you want consulting provider notified?: Yes Primary care physician: Edison Mascorro - Discharge Diagnosis(es) (1) Primary osteoarthritis of left knee Current Visit: Yes Status: Acute (2) S/P total knee arthroplasty Current Visit: Yes Status: Acute Hospital Course: This is a 56-year-old male with known history of failure of left total knee arthroplasty. The patient presents for evaluation. After discussion and consideration patient elects to proceed with revision total knee arthroplasty. The patient is seen preoperatively by Dr. Le and cleared for surgery. Patient is admitted to [facility] on 01/25/2017 for total knee arthroplasty. The procedures performed without complication or sequelae. The patient is doing well postoperatively. Labs and vital signs are stable on day of discharge. On day of discharge patient's knee incision is healing well. There is minimal erythema. There is mild drainage noted at this time. There is minimal soft tissue swelling to the knee. Patient has full foot and ankle motion without difficulty or pain. Neurovascular status to the left lower extremity is intact. Patient is discharged home in good condition. Please see med rec for accurate list of home medications. Plan - Discharge Summary New Discharge Prescriptions: New Nicotine 21Mg/24Hr Patch [Habitrol] 1 each TRANSDERM DAILY #14 patch Aspirin 325 mg PO BID #60 tab Sennosides-Docusate Sodium [Senokot-S] 1 tab PO BID #60 tablet No Action hydrOXYzine PAMOATE [Vistaril] 25 mg PO BID PRN PRN Reason: Anxiety Naproxen [Naprosyn] 500 mg PO Q12HR PRN PRN Reason: Pain Mirtazapine [Remeron] 15 mg PO HS Ibuprofen [Motrin] 600 mg PO Q6HR PRN PRN Reason: Pain Hydrochlorothiazide 25 mg PO DAILY clonazePAM [KlonoPIN] 0.5 mg PO BID amLODIPine BESYLATE [Norvasc] 10 mg PO HS oxyCODONE HCL [oxyCODONE HCL ER] 30 mg PO HS oxyCODONE-APAP 10-325MG [Percocet 10-325 mg] 1 tab PO Q4H PRN PRN Reason: Pain hydrOXYzine PAMOATE [Vistaril] 25 mg PO BID cloNIDine HCL [Catapres] 0.2 mg PO BID Fluticasone Nasal [place] [Flonase Nasal [place]] 1 spray EA NOSTRIL DAILY Diclofenac Sodium [Pennsaid] 1 spray TOPICAL Q4H PRN PRN Reason: pain /solution 2% Cyclobenzaprine [Flexeril] 10 mg PO TID PRN PRN Reason: MUSCLE SPASM /BACK PAIN Bacillus Coagulans [Digestive Advantage] 1 tab PO DAILY Loperamide HCl [Imodium A-D] 2 mg PO BID Discharge Medication List Hydrochlorothiazide 25 mg PO DAILY 01/11/17 [History] Ibuprofen [Motrin] 600 mg PO Q6HR PRN 01/11/17 [History] Mirtazapine [Remeron] 15 mg PO HS 01/11/17 [History] Naproxen [Naprosyn] 500 mg PO Q12HR PRN 01/11/17 [History] amLODIPine BESYLATE [Norvasc] 10 mg PO HS 01/11/17 [History] cloNIDine HCL [Catapres] 0.2 mg PO BID 01/11/17 [History] clonazePAM [KlonoPIN] 0.5 mg PO BID 01/11/17 [History] hydrOXYzine PAMOATE [Vistaril] 25 mg PO BID 01/11/17 [History] hydrOXYzine PAMOATE [Vistaril] 25 mg PO BID PRN 01/11/17 [History] oxyCODONE HCL [oxyCODONE HCL ER] 30 mg PO HS 01/11/17 [History] oxyCODONE-APAP 10-325MG [Percocet 10-325 mg] 1 tab PO Q4H PRN 01/11/17 [History] Cyclobenzaprine [Flexeril] 10 mg PO TID PRN 01/12/17 [History] Diclofenac Sodium [Pennsaid] 1 spray TOPICAL Q4H PRN 01/12/17 [History] Fluticasone Nasal [place] [Flonase Nasal [place]] 1 spray EA NOSTRIL DAILY 01/12/17 [History] Bacillus Coagulans [Digestive Advantage] 1 tab PO DAILY 01/24/17 [History] Loperamide HCl [Imodium A-D] 2 mg PO BID 01/24/17 [History] Nicotine 21Mg/24Hr Patch [Habitrol] 1 each TRANSDERM DAILY #14 patch 01/26/17 [ Rx] Aspirin 325 mg PO BID #60 tab 01/27/17 [Rx] Sennosides-Docusate Sodium [Senokot-S] 1 tab PO BID #60 tablet 01/27/17 [Rx] Follow up Appointment(s)/Referral(s): Mitesh Le DO [Doctor of Osteopathic Medicine] - 2 Weeks [facility] Visiting Nurse, [NON-STAFF] - 1 Week Ambulatory/Diagnostic Orders: Continuous Passive Motion (CPM) Machine [DME.AMB1] Time Frame: 2 Weeks, Location : Determined By Patient Walker [DME.AMB1] Time Frame: 6 Weeks, Location: Determined By Patient Ambulatory Physical Therapy Order [THER.AMB] Location: Determined By Patient Activity/Diet/Wound Care/Special Instructions: Weightbearing as tolerated with a walker CPM 5-6h daily when there is no drainage from the incision Daily dressing changes, keep incision clean and dry May shower if no drainage from incision Call [facility] with questions or concerns [phone] CPM and Walker through [facility]. [phone]. Discharge Disposition: HOME WITH HOME HEALTH SERVICES
[2017-01-28] MEDS: NICOTINE 21MG/24HR PATCH TRANSDERM SCH (09:11)
[2017-01-28] MEDS: clonazePAM 0.5 MG TAB PO SCH (09:11)
[2017-01-28] MEDS: HYDROCHLOROTHIAZIDE 25 MG TAB PO SCH (09:11)
[2017-01-28] MEDS: ASPIRIN 325 MG TAB PO SCH (09:11)
[2017-01-28] MEDS: cloNIDine HCL 0.2 MG TAB PO SCH (09:11)
[2017-01-28] MEDS: FLUTICASONE 50MCG/SPRAY NASAL 16GM EA NOSTRIL SCH (09:12)
[2017-01-28] MEDS: MELOXICAM 7.5 MG TAB PO SCH (10:25)
== END 2017-01-28 11:50 | disposition home health service (06) | DRG 468 ==
LOC: 2ORMAIN 08:13 → 3SUR 13:59
PROVIDERS: ADMIT Orthopaedic Surgery; ATTEND Orthopaedic Surgery
PROC: 0SRD0J9 Replacement of Left Knee Joint with Synthetic Substitute, Cemented, Open Approach (ICD-10-PCS; principal; 2017-01-25 11:35)
PROC: 0SPD0JZ Removal of Synthetic Substitute from Left Knee Joint, Open Approach (ICD-10-PCS; principal; 2017-01-25 11:35)
DX: T84.89XA Other specified complication of internal orthopedic prosthetic devices, implants and grafts, initial encounter (principal); I10 Essential (primary) hypertension; M17.12 Unilateral primary osteoarthritis, left knee; F32.9 Major depressive disorder, single episode, unspecified; B18.2 Chronic viral hepatitis C; F41.9 Anxiety disorder, unspecified; G89.18 Other acute postprocedural pain; G89.4 Chronic pain syndrome; Y79.2 Prosthetic and other implants, materials and accessory orthopedic devices associated with adverse incidents; Z79.899 Other long term (current) drug therapy; Z79.1 Long term (current) use of non-steroidal anti-inflammatories (NSAID); Z79.891 Long term (current) use of opiate analgesic; Z72.0 Tobacco use
CPT/HCPCS: 80053; 81003; 85025; 87070; 87075; 87205; 88305; 88331

== ENCOUNTER 2017-02-04 11:16 | Inpatient (IN) | payer OTHER ==
[2017-02-04] MEDS ORDERED: BISACODYL 10 MG SUPP RECTAL PRN (11:31)
[2017-02-04] MEDS ORDERED: MAGNESIUM HYDROXIDE 2,400 MG/10 ML CUP PO PRN (11:31)
[2017-02-04] MEDS ORDERED: HYDROmorphone 1 MG/ML 1 ML SYRINGE IVP PRN ×2 (11:31)
[2017-02-04] MEDS ORDERED: DIAZEPAM 5 MG TAB PO PRN (11:31)
[2017-02-04] MEDS ORDERED: NA PHOS,M-B/NA PHOS,DI-BA 133 ML ENEMA RECTAL PRN (11:31)
[2017-02-04] MEDS ORDERED: ONDANSETRON 4 MG/2 ML VIAL IVP PRN (11:31)
[2017-02-04] MEDS ORDERED: NALOXONE 0.4 MG/ML 1 ML VIAL IV PRN (11:31)
[2017-02-04] MEDS ORDERED: VANCOMYCIN 1,000 MG in SODIUM CHLORIDE 0.9% 250 ML IVPB STA (11:41)
--- NOTE | 2017-02-04 12:07 | P.HPOR ---
History of Present Illness H&P Date: 02/04/17 Chief Complaint: Post-op leg swelling and pain This is a 56 year old male who is admitted to [facility] for post-op cellulitis, leg swelling and pain. Patient is s/p left revision total knee arthroplasty on 01/25/2017. Patient was seen at [facility] today, 02/04, for follow up by Dr. Mitesh Le and was directly admitted for IV antibiotics and further evaluation. Patient states he noticed the leg swelling 2 days ago and tried elevating and icing the leg. Patient states he has not done much range of motion with the left lower extremity due to initial drainage from the incision. Patient states the drainage from the incision improved. Patient now complains of left leg pain extending to the foot and calf tenderness. Patient states he has been able to ambulate using a cane. Patient denies any fevers or chills and states the homecare nurse has been taking his temperature each visit. Patient denies any numbness, weakness, tingling, injury to the left lower extremity, shortness of breath, or chest pain. Review of Systems See HPI. Past Medical History Past Medical History: Hypertension, Osteoarthritis (OA) Additional Past Medical History / Comment(s): HEPATITIS C, RETAIN FLUID IN LEGS, History of Any Multi-Drug Resistant Organisms: None Reported Past Surgical History: Orthopedic Surgery Additional Past Surgical History / Comment(s): RIGHT KNEE ARTHROSCOPIC , TOTAL RIGHT KNEE, TOTAL LEFT KNEE, BLOOD CLOT REMOVED FROM BRAIN , revision of tlk jan 25, 2017 Past Anesthesia/Blood Transfusion Reactions: No Reported Reaction Past Psychological History: Anxiety, Depression Smoking Status: Current every day smoker Past Alcohol Use History: None Reported Past Drug Use History: None Reported Additional Drug Use History / Comment(s): STARTED SMOKING AT AGE 11 SMOKES 1/ 2PPD - Past Family History Mother Family Medical History: No Reported History Medications and Allergies Home Medications Medication Instructions Recorded Confirmed Type Hydrochlorothiazide 25 mg PO DAILY 01/11/17 01/25/17 History Ibuprofen [Motrin] 600 mg PO Q6HR PRN 01/11/17 01/25/17 History Mirtazapine [Remeron] 15 mg PO HS 01/11/17 01/25/17 History Naproxen [Naprosyn] 500 mg PO Q12HR PRN 01/11/17 01/25/17 History amLODIPine BESYLATE [Norvasc] 10 mg PO HS 01/11/17 01/25/17 History cloNIDine HCL [Catapres] 0.2 mg PO BID 01/11/17 01/25/17 History clonazePAM [KlonoPIN] 0.5 mg PO BID 01/11/17 01/25/17 History hydrOXYzine PAMOATE [Vistaril] 25 mg PO BID 01/11/17 01/25/17 History hydrOXYzine PAMOATE [Vistaril] 25 mg PO BID PRN 01/11/17 01/25/17 History oxyCODONE HCL [oxyCODONE HCL ER] 30 mg PO HS 01/11/17 01/25/17 History oxyCODONE-APAP 10-325MG [Percocet 1 tab PO Q4H PRN 01/11/17 01/25/17 History 10-325 mg] Cyclobenzaprine [Flexeril] 10 mg PO TID PRN 01/12/17 01/25/17 History Diclofenac Sodium [Pennsaid] 1 spray TOPICAL Q4H PRN 01/12/17 01/25/17 History Fluticasone Nasal [place] [Flonase 1 spray EA NOSTRIL DAILY 01/12/17 01/25/17 History Nasal [place]] Bacillus Coagulans [Digestive 1 tab PO DAILY 01/24/17 01/25/17 History Advantage] Loperamide HCl [Imodium A-D] 2 mg PO BID 01/24/17 01/25/17 History Allergies Allergy/AdvReac Type Severity Reaction Status Date / Time No Known Allergies Allergy Verified 01/25/17 16:22 Physical Examination Patient is in no acute distress and is alert and oriented x3. On exam of the left lower extremity there is significant swelling especially of the calf extending to the foot. Compartments are compressible. There is erythema of the left calf, foot and around the knee. Surgical tape intact. There is bloody drainage noted on the dressing when removed. Patient has near full extension and has limited range of motion with flexion due to swelling and pain. Sensation intact. Dorsalis pedis pulse is 1+. Patient has full range of motion of the foot and ankle. No issues with neck, back, bilateral upper extremities or right lower extremity. Results X-rays of the left knee, a doppler US of the left lower extremity and labs are pending. Assessment and Plan (1) Cellulitis of left leg Status: Acute (2) Post op infection Status: Acute (3) S/P total knee arthroplasty Status: Acute (4) Left leg swelling Status: Acute (5) Left leg pain Status: Acute Plan: #1. IV Vancomycin and pain control. #2. Knee Immobilizer to the left lower extremity. #3. Daily dressing changes #4. Weightbearing as tolerated with the knee immobilizer #5. CBC, CMP, ESR/CRP, and blood cultures are pending. #6. Xray of the left knee and doppler US of the left lower extremity are pending #7. ID consult pending. #8. No surgical intervention planned at this time.
[2017-02-04 12:38] VITALS: BMI 36.1
[2017-02-04 12:53] LABS: Basophils # (A) 0.1 k/uL (0-0.2); Basophils % (A) 1 %; CH 30.5; CHCM 33.9; Eosinophils # (A) 0.6 k/uL (0-0.7); Eosinophils % (A) 6 %; HCT 38.2 % (39.0-53.0); HDW 3.12; HGB 12.8 gm/dL (13.0-17.5); Luc % (Auto) 3; Lymphocytes # (A) 1.3 k/uL (1.0-4.8); Lymphocytes % (A) 13 %; MCH 30.4 pg (25.0-35.0); MCHC 33.6 g/dL (31.0-37.0); MCV 90.5 fL (80.0-100.0); Mean Platelet Volume 6.2; Monocytes # (A) 0.6 k/uL (0-1.0); Monocytes % (A) 6 %; Neutrophils # (A) 6.7 k/uL (1.3-7.7); Neutrophils % (A) 71 %; RBC 4.22 m/uL (4.30-5.90); RDW 14.4 % (11.5-15.5); WBC 9.5 k/uL (3.8-10.6)
[2017-02-04] MEDS: SODIUM CHLORIDE 0.9% 1,000 ML IV SCH (12:53)
[2017-02-04 13:08] LABS: ALT 47 U/L (21-72); AST 59 U/L (17-59); Alkaline Phosphatase 106 U/L (38-126); Anion Gap 11 mmol/L; Blood Urea Nitrogen 13 mg/dL (9-20); Calcium 9.2 mg/dL (8.4-10.2); Carbon Dioxide 29 mmol/L (22-30); Chloride 95 mmol/L (98-107); Glucose 91 mg/dL (74-99); Non-African American GFR(MDRD) >60 (>60 ml/min/1.73 sqM); Sodium 135 mmol/L (137-145); Total Bilirubin 1.4 mg/dL (0.2-1.3); Total Protein 7.8 g/dL (6.3-8.2)
[2017-02-04] MEDS: oxyCODONE-APAP 10-325MG 1 EACH TAB PO PRN ×3 (13:24→22:49)
[2017-02-04 13:29] LABS: C Reactive Protein 47.1 mg/L (<10.0)
[2017-02-04] MEDS ORDERED: IV VANCOMYCIN PER PHARMACY 1 EACH MISC MISCELLANE ONE (13:30)
[2017-02-04 13:36] LABS: Erythrocyte Sedimentation Rate 37 mm/hr (0-15)
[2017-02-04] MEDS ORDERED: VANCOMYCIN 2,000 MG in SODIUM CHLORIDE 0.9% 500 ML IVPB ONE (14:00)
--- NOTE | 2017-02-04 14:28 | US ---
EXAMINATION TYPE: US venous doppler duplex LE LT DATE OF EXAM: 02/04/2017 2:23 PM COMPARISON: US CLINICAL HISTORY: leg swelling, s/p revision tka. SIDE PERFORMED: Left TECHNIQUE: The lower extremity deep venous system is examined utilizing real time linear array sonog lay with graded compression, doppler sonography and color-flow sonography. VESSELS IMAGED: External Iliac Vein (EIV) Common Femoral Vein Deep Femoral Vein Greater Saphenous Vein * Femoral Vein Popliteal Vein Proximal Calf Veins (* superficial vessels) Grayscale, color doppler, spectral doppler imaging performed of the deep veins of the lower extremity . There is normal flow, compressibility, vascular waveforms. Enlarged nodes noted left groin IMPRESSION: Left Leg: Negative for DVT
--- NOTE | 2017-02-04 14:50 | P.CONS ---
History of Present Illness - Reason for Consult Consult date: 02/04/17 Postop cellulitis - History of Present Illness This is an -[place] male but that gives history that he had revision of a total knee arthroplasty on January 25. He states he originally had surgery on his left knee in 2012 in June 2013 he had have a meniscus replaced apparently because it was the wrong size. Since he had his surgery last week, he states he has had continuous drainage from the wound along with swelling that worsen over the past 2 days. He states the pain or chills and no previous antibiotics. He has been using hydrogen peroxide to clean the wound. He had an appointment with Dr. Le today and was directly admitted to the hospital. Knee x-ray and ultrasound rule out DVT are pending. He has been afebrile and white count at 9.5. Blood culture, CRP and sed rate have been obtained. Review of Systems All systems: negative Constitutional: Reports chronic pain, Denies anorexia, Denies chills, Denies fatigue, Denies fever, Denies poor appetite, Denies sweats Eyes: denies blurred vision, denies pain Ears, nose, mouth and throat: Denies dental pain, Denies headache, Denies mouth pain, Denies sore throat Cardiovascular: Reports leg edema, Denies chest pain, Denies decreased exercise tolerance, Denies dyspnea on exertion, Denies edema, Denies lightheadedness, Denies shortness of breath, Denies syncope Respiratory: Denies congestion, Denies cough, Denies cough with sputum, Denies dyspnea, Denies excessive sputum, Denies hemoptysis, Denies home oxygen Gastrointestinal: Denies abdominal pain, Denies diarrhea, Denies nausea, Denies vomiting Genitourinary: Denies dysuria, Denies urinary frequency, Denies urinary retention Musculoskeletal: Denies frequent falls, Denies myalgias Musculoskeletal: left: knee pain, knee stiffness, knee swelling Integumentary: Reports wounds, Denies pruritus, Denies rash Neurological: Denies numbness, Denies weakness Psychiatric: Denies anxiety, Denies depression Endocrine: Denies fatigue, Denies weight change Past Medical History Past Medical History: Hypertension, Osteoarthritis (OA) Additional Past Medical History / Comment(s): HEPATITIS C excessively treated, RETAIN FLUID IN LEGS, History of Any Multi-Drug Resistant Organisms: None Reported Past Surgical History: Orthopedic Surgery Additional Past Surgical History / Comment(s): RIGHT KNEE ARTHROSCOPIC , TOTAL RIGHT KNEE, TOTAL LEFT KNEE in 2012, revision of meniscus in June 2013, left total knee revision in January 2017, BLOOD CLOT REMOVED FROM BRAIN Past Anesthesia/Blood Transfusion Reactions: No Reported Reaction Past Psychological History: Anxiety, Depression Smoking Status: Current every day smoker Past Alcohol Use History: None Reported Additional Past Alcohol Use History / Comment(s): Patient smokes half a pack per day since he was 11 years of age. He denies any medical marijuana, marijuana, street drug use. 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 He is currently living with a friend. There are no animals in the home. 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 Past Drug Use History: None Reported Additional Drug Use History / Comment(s): STARTED SMOKING AT AGE 11 SMOKES 1/ 2PPD - Past Family History Mother Family Medical History: No Reported History Medications and Allergies Home Medications Medication Instructions Recorded Confirmed Type Hydrochlorothiazide 25 mg PO DAILY 01/11/17 02/04/17 History Ibuprofen [Motrin] 600 mg PO Q6HR PRN 01/11/17 02/04/17 History Mirtazapine [Remeron] 15 mg PO HS 01/11/17 02/04/17 History Naproxen [Naprosyn] 500 mg PO Q12HR PRN 01/11/17 02/04/17 History amLODIPine BESYLATE [Norvasc] 10 mg PO HS 01/11/17 02/04/17 History cloNIDine HCL [Catapres] 0.2 mg PO BID 01/11/17 02/04/17 History clonazePAM [KlonoPIN] 0.5 mg PO BID 01/11/17 02/04/17 History hydrOXYzine PAMOATE [Vistaril] 25 mg PO BID 01/11/17 02/04/17 History hydrOXYzine PAMOATE [Vistaril] 25 mg PO BID PRN 01/11/17 02/04/17 History oxyCODONE HCL [oxyCODONE HCL ER] 30 mg PO HS 01/11/17 02/04/17 History oxyCODONE-APAP 10-325MG [Percocet 1 tab PO Q4H PRN 01/11/17 02/04/17 History 10-325 mg] Cyclobenzaprine [Flexeril] 10 mg PO TID PRN 01/12/17 02/04/17 History Diclofenac Sodium [Pennsaid] 1 spray TOPICAL Q4H PRN 01/12/17 02/04/17 History Fluticasone Nasal [place] [Flonase 1 spray EA NOSTRIL DAILY 01/12/17 02/04/17 History Nasal [place]] Bacillus Coagulans [Digestive 1 tab PO DAILY 01/24/17 02/04/17 History Advantage] Loperamide HCl [Imodium A-D] 2 mg PO BID 01/24/17 02/04/17 History Aspirin 162.5 mg PO DAILY 02/04/17 02/04/17 History Nicotine 21Mg/24Hr Patch [Habitrol] 1 patch TRANSDERM DAILY 02/04/17 02/04/17 History Allergies Allergy/AdvReac Type Severity Reaction Status Date / Time No Known Allergies Allergy Verified 02/04/17 12:49 Physical Exam Vitals: Vital Signs Temp Pulse Resp BP Pulse Ox 02/04/17 12:50 98.9 F 110 H 16 144/93 97 Intake and Output 02/03/17 02/04/17 02/04/17 22:59 06:59 14:59 Other: Weight 108 kg Patient Weight 02/05/17 06:59 Weight 108 kg Gen: This is a 56-year-old -[place] male. He appears to be in no acute distress. Patient is sleeping and awakens easily. HEENT: Head is atraumatic, normocephalic. Pupils equal, round. Sclerae is anicteric. Conjunctiva pink. Mucous members of the mouth are dry. NECK: Supple. No JVD. No lymphadenopathy. No thyromegaly. LUNGS: Clear to auscultation. No wheezes or rhonchi. No intercostal retractions. HEART: Regular rate and rhythm. No murmur. ABDOMEN: Soft. Bowel sounds are present. No masses. No tenderness. EXTREMITIES: There is significant erythema and edema to the left leg from the foot to above the knee. Dressing was not removed from the left knee. Dorsalis pedis is palpable bilaterally NEUROLOGICAL: Patient is awake, alert and oriented x3. Cranial nerves 2 through 12 are grossly intact. Results Results: Laboratory Results WBC 9.5 k/uL (3.8-10.6) 02/04/17 12:39 RBC 4.22 m/uL (4.30-5.90) L 02/04/17 12:39 Hgb 12.8 gm/dL (13.0-17.5) L 02/04/17 12:39 Hct 38.2 % (39.0-53.0) L 02/04/17 12:39 MCV 90.5 fL (80.0-100.0) 02/04/17 12:39 MCH 30.4 pg (25.0-35.0) 02/04/17 12:39 MCHC 33.6 g/dL (31.0-37.0) 02/04/17 12:39 RDW 14.4 % (11.5-15.5) 02/04/17 12:39 Plt Count 432 k/uL (150-450) 02/04/17 12:39 Neutrophils % 71 % 02/04/17 12:39 Lymphocytes % 13 % 02/04/17 12:39 Monocytes % 6 % 02/04/17 12:39 Eosinophils % 6 % 02/04/17 12:39 Basophils % 1 % 02/04/17 12:39 Neutrophils # 6.7 k/uL (1.3-7.7) 02/04/17 12:39 Lymphocytes # 1.3 k/uL (1.0-4.8) 02/04/17 12:39 Monocytes # 0.6 k/uL (0-1.0) 02/04/17 12:39 Eosinophils # 0.6 k/uL (0-0.7) 02/04/17 12:39 Basophils # 0.1 k/uL (0-0.2) 02/04/17 12:39 ESR 37 mm/hr (0-15) H 02/04/17 12:39 Sodium 135 mmol/L (137-145) L 02/04/17 12:39 Potassium 4.0 mmol/L (3.5-5.1) 02/04/17 12:39 Chloride 95 mmol/L (98-107) L 02/04/17 12:39 Carbon Dioxide 29 mmol/L (22-30) 02/04/17 12:39 Anion Gap 11 mmol/L 02/04/17 12:39 BUN 13 mg/dL (9-20) 02/04/17 12:39 Creatinine 0.93 mg/dL (0.66-1.25) 02/04/17 12:39 Est GFR (MDRD) Af Amer >60 (>60 ml/min/1.73 sqM) 02/04/17 12:39 Est GFR (MDRD) Non-Af >60 (>60 ml/min/1.73 sqM) 02/04/17 12:39 Glucose 91 mg/dL (74-99) 02/04/17 12:39 Calcium 9.2 mg/dL (8.4-10.2) 02/04/17 12:39 Total Bilirubin 1.4 mg/dL (0.2-1.3) H 02/04/17 12:39 AST 59 U/L (17-59) 02/04/17 12:39 ALT 47 U/L (21-72) 02/04/17 12:39 Alkaline Phosphatase 106 U/L (38-126) 02/04/17 12:39 C-Reactive Protein 47.1 mg/L (<10.0) H 02/04/17 12:39 Total Protein 7.8 g/dL (6.3-8.2) 02/04/17 12:39 Albumin 4.2 g/dL (3.5-5.0) 02/04/17 12:39 CBC & Chem 7: 02/04/17 12:39 02/04/17 12:39 Labs: Abnormal Lab Results - Last 24 Hours (Table) 02/04/17 02/04/17 Range/Units 12:39 12:39 RBC 4.22 L (4.30-5.90) m/uL Hgb 12.8 L (13.0-17.5) gm/dL Hct 38.2 L (39.0-53.0) % Sodium 135 L (137-145) mmol/L Chloride 95 L (98-107) mmol/L Total Bilirubin 1.4 H (0.2-1.3) mg/dL Assessment and Plan Plan: This is a 56-year-old male who returns to the hospital after recent revision of a total knee arthroplasty done on January 25. He shows signs of cellulitis possible joint infection to be ruled out. Blood culture, CRP and sed rate have been ordered. He is currently afebrile with normal white count. He is on vancomycin. Ultrasound of the lower extremity and a left knee x-ray are currently pending. Continue supportive care. Further recommendations as patient progresses. The above dictated assessment and findings were discussed with Dr. Borden. The impression and plan of care have been directed as dictated. Niki Vanegas nurse practitioner acting as scribe for Dr. Borden.
[2017-02-04] MEDS ORDERED: hydrOXYzine PAMOATE 25 MG CAP PO PRN (15:01)
[2017-02-04] MEDS: HYDROCHLOROTHIAZIDE 25 MG TAB PO SCH (16:29)
[2017-02-04] MEDS: NICOTINE 21MG/24HR PATCH TRANSDERM SCH (16:29)
--- NOTE | 2017-02-04 16:31 | XR ---
EXAMINATION TYPE: XR knee limited LT DATE OF EXAM: 02/04/2017 CLINICAL HISTORY: Postoperative evaluation Two views of the left knee are submitted. Identified are changes of total knee arthroplasty with fem oral and tibial components appearing well seated. Postsurgical soft tissue changes are noted. Align ment is anatomic.
[2017-02-04] MEDS: hydrOXYzine PAMOATE 25 MG CAP PO PRN ×2 (17:52→22:50)
--- NOTE | 2017-02-04 18:31 | P.CON ---
Consult Note - . Consult date: 02/04/17 Assessment/Plan:: This is an -[place] male but that gives history that he had revision of a total knee arthroplasty on January 25. He states he originally had surgery on his left knee in 2012 in June 2013 he had have a meniscus replaced apparently because it was the wrong size. Since he had his surgery last week, he states he has had continuous drainage from the wound along with swelling that worsen over the past 2 days. He states the pain or chills and no previous antibiotics. He has been using hydrogen peroxide to clean the wound. He had an appointment with Dr. Le today and was directly admitted to the hospital. Knee x-ray and ultrasound rule out DVT are pending. He has been afebrile and white count at 9.5. Blood culture, CRP and sed rate have been obtained. Please see the consult note is dictated by nurse practitioner'Vinnie.Niki Vanegas. Of note the patient has quite a negative attitude. At this time he has significant swelling and erythema to the left leg. This is distal to the revision to the left total knee arthroplasty. The swelling went down to the foot. It is tender and erythematous. The knee itself does not have significant drainage at this time. Patient is instructed that drainage from the knee is not unusual directly after surgery speciality bloody drainage like he had. And that skin infections are not unusual after surgical procedures, known complication of these kind of procedures. His nasal screen was positive for MRSA. Consequently vancomycin therapy is initiated. However given concerns to medical noncompliance and the patient's manipulation of his incision and the direct postoperative timeframe and since, will require the addition of gram-negative coverage. Cultures arm progress. The limb is wrapped from the foot to the knee and may continue to use ice. He is instructed that the wrap is to try to help with the edema. He seems discontent and that the wrap. Ice from helping his limb. We discussed that the coolness will penetrate. Patient still seems very discontent overall. Attempt to try to provide him information. I agree with evaluation, assessment and plan as dictated by DAVIS Ortiz Niki Guilherme.
[2017-02-04] MEDS: amLODIPine 10 MG TAB PO SCH (20:05)
[2017-02-04] MEDS: ASPIRIN 325 MG TAB PO SCH (20:05)
[2017-02-04] MEDS: cloNIDine HCL 0.2 MG TAB PO SCH (20:06)
[2017-02-04] MEDS: MIRTAZAPINE 15 MG TAB PO SCH (20:06)
[2017-02-04] MEDS: HYDROmorphone 1 MG/ML 1 ML SYRINGE IVP PRN (20:12)
[2017-02-04] MEDS: SENNOSIDES-DOCUSATE SODIUM 1 EACH TAB PO SCH (20:12)
[2017-02-04] MEDS: CYCLOBENZAPRINE 10 MG TAB PO PRN (20:12)
[2017-02-04] MEDS: clonazePAM 0.5 MG TAB PO SCH (21:29)
[2017-02-05] MEDS: VANCOMYCIN 1,750 MG in SODIUM CHLORIDE 0.9% 250 ML IVPB SCH ×3 (00:51→23:18)
[2017-02-05] MEDS: SODIUM CHLORIDE 0.9% 1,000 ML IV SCH ×2 (03:13→16:27)
[2017-02-05] MEDS: HYDROmorphone 1 MG/ML 1 ML SYRINGE IVP PRN ×6 (03:14→22:32)
[2017-02-05] MEDS: CYCLOBENZAPRINE 10 MG TAB PO PRN ×3 (04:26→17:59)
[2017-02-05] MEDS: oxyCODONE-APAP 10-325MG 1 EACH TAB PO PRN ×5 (04:26→22:17)
[2017-02-05 07:39] LABS: Basophils # (A) 0.1 k/uL (0-0.2); Basophils % (A) 1 %; CH 31.1; Eosinophils # (A) 0.6 k/uL (0-0.7); Eosinophils % (A) 8 %; HCT 39.7 % (39.0-53.0); HGB 12.9 gm/dL (13.0-17.5); Luc # (Auto) 0.17; Luc % (Auto) 2; Lymphocytes # (A) 1.9 k/uL (1.0-4.8); Lymphocytes % (A) 26 %; MCH 29.8 pg (25.0-35.0); MCHC 32.4 g/dL (31.0-37.0); MCV 91.9 fL (80.0-100.0); Mean Platelet Volume 7.2; Monocytes # (A) 0.6 k/uL (0-1.0); Monocytes % (A) 9 %; Neutrophils # (A) 4.1 k/uL (1.3-7.7); Neutrophils % (A) 55 %; RBC 4.32 m/uL (4.30-5.90); RDW 15.1 % (11.5-15.5); WBC 7.4 k/uL (3.8-10.6); WBC (Perox) 6.84
[2017-02-05] MEDS ORDERED: DICLOFENAC SODIUM TOPICAL PRN (08:26)
[2017-02-05] MEDS ORDERED: BACILLUS COAGULANS PO SCH (09:00)
[2017-02-05] MEDS: ASPIRIN 325 MG TAB PO SCH ×2 (09:19→21:01)
[2017-02-05] MEDS: clonazePAM 0.5 MG TAB PO SCH ×2 (09:19→21:01)
[2017-02-05] MEDS: hydrOXYzine PAMOATE 25 MG CAP PO PRN ×4 (09:19→22:21)
[2017-02-05] MEDS: HYDROCHLOROTHIAZIDE 25 MG TAB PO SCH (09:20)
[2017-02-05] MEDS: cloNIDine HCL 0.2 MG TAB PO SCH ×2 (09:20→21:01)
[2017-02-05] MEDS: NICOTINE 21MG/24HR PATCH TRANSDERM SCH (09:20)
[2017-02-05] MEDS: FLUTICASONE 50MCG/SPRAY NASAL 16GM EA NOSTRIL SCH (09:25)
[2017-02-05] MEDS: DIAZEPAM 5 MG TAB PO PRN ×2 (09:32→21:01)
--- NOTE | 2017-02-05 13:33 | P.CONS ---
History of Present Illness - Reason for Consult Consult date: 02/04/17 Medical management Requesting physician: Mitesh Le - Chief Complaint Leg pain - History of Present Illness Consultation: This patient was seen by me in consultation yesterday evening on 02/04/2017. Patient follows with Dr. Cooper. Chronic stable medical conditions include hypertension, osteoarthritis, hepatitis C, anxiety depression. Patient continues to smoke. On 01/25/2017 patient underwent revisualization of left total knee arthroplasty for a failed arthroplasty by Dr. Le. Patient was discharge on 01/28/2017. He presented with complaint of increasing drainage and swelling in that leg than in the incision. He was admitted from Dr. Le's office area did no fevers. Appetite is fair. Patient smokes. GEN.: None EYES: None HEENT: None NECK: None RESPIRATORY: [Cough occasionally CARDIOVASCULAR: None GASTROINTESTINAL: None GENITOURINARY: None MUSCULOSKELETAL: Pain at the operative site LYMPHATICS: None HEMATOLOGICAL: None PSYCHIATRY: Anxiety NEUROLOGICAL: None DERMATOLOGICAL as above Past medical history: Hypertension, osteoarthritis, hepatitis C, anxiety, depression, Past medical history: Rectal arthroscopic, right total knee, left total knee in 2012, blood clot removed from the brain previously. Anxiety depression. Social history: Patient smokes half a pack a day currently. Smoking for 45 years. Lives with a friend. 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 Family history: Reviewed noncarbonated presentation Home medications: Reviewed in the computer ALLERGIES: None VITAL SIGNS: 92, 69, 145/87, 97% room air GENERAL: [Average built, laying in bed, comfortable on the cell phone and a walker neuro. EYES: Pupils equal. Conjunctiva normal. HEENT: External appearance of nose and ears normal, oral cavity grossly normal. NECK: JVD not raised; masses not palpable. HEART: First and second heart sounds are normal; no edema. LUNGS:[ Respiratory rate normal; decreased breath sound. ABDOMEN: Soft, nontender, liver spleen not palpable, no masses palpable. LYMPHATICS: No lymph nodes palpable in the axilla and neck. PSYCH: Alert and oriented x3; mood and affect some anxietyl. NEUROLOGICAL: Cranial nerves grossly intact; no facial asymmetry, power and sensation grossly intact. EXTREMITY: Left leg wrapped in dressing from the knee down to the foot Investigations: White count 9.5, albumin 12.8 potassium 4, BUN/creatinine normal Assessment: -Possible acute left leg cellulitis, and is unclear if it is the joint of the skin infected and will defer this to the infectious disease/Dr. Borden to determine that. -Chronic nicotine dependence patient is smoker -Essential hypertension -Primary osteoarthritis in the joints -Chronic hepatitis C -Anxiety depression otherwise specified Plan: Patient is on IV ceftazidime per ID home medications are resumed. Patient advised against smoking. He is also on IV vancomycin. Nicotine patch will be given. We will do a chest x-ray. Questions were answered. Thank you Dr. Le Past Medical History Past Medical History: Hypertension, Osteoarthritis (OA) Additional Past Medical History / Comment(s): HEPATITIS C excessively treated, RETAIN FLUID IN LEGS, History of Any Multi-Drug Resistant Organisms: None Reported Past Surgical History: Orthopedic Surgery Additional Past Surgical History / Comment(s): RIGHT KNEE ARTHROSCOPIC , TOTAL RIGHT KNEE, TOTAL LEFT KNEE in 2012, revision of meniscus in June 2013, left total knee revision in January 2017, BLOOD CLOT REMOVED FROM BRAIN Past Anesthesia/Blood Transfusion Reactions: No Reported Reaction Past Psychological History: Anxiety, Depression Smoking Status: Current every day smoker Past Alcohol Use History: None Reported Additional Past Alcohol Use History / Comment(s): Patient smokes half a pack per day since he was 11 years of age. He denies any medical marijuana, marijuana, street drug use. 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 He is currently living with a friend. There are no animals in the home. 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 Past Drug Use History: None Reported Additional Drug Use History / Comment(s): STARTED SMOKING AT AGE 11 SMOKES 1/ 2PPD - Past Family History Mother Family Medical History: No Reported History Medications and Allergies Home Medications Medication Instructions Recorded Confirmed Type Hydrochlorothiazide 25 mg PO DAILY 01/11/17 02/04/17 History Ibuprofen [Motrin] 600 mg PO Q6HR PRN 01/11/17 02/04/17 History Mirtazapine [Remeron] 15 mg PO HS 01/11/17 02/04/17 History Naproxen [Naprosyn] 500 mg PO Q12HR PRN 01/11/17 02/04/17 History amLODIPine BESYLATE [Norvasc] 10 mg PO HS 01/11/17 02/04/17 History cloNIDine HCL [Catapres] 0.2 mg PO BID 01/11/17 02/04/17 History clonazePAM [KlonoPIN] 0.5 mg PO BID 01/11/17 02/04/17 History hydrOXYzine PAMOATE [Vistaril] 25 mg PO BID 01/11/17 02/04/17 History hydrOXYzine PAMOATE [Vistaril] 25 mg PO BID PRN 01/11/17 02/04/17 History oxyCODONE HCL [oxyCODONE HCL ER] 30 mg PO HS 01/11/17 02/04/17 History oxyCODONE-APAP 10-325MG [Percocet 1 tab PO Q4H PRN 01/11/17 02/04/17 History 10-325 mg] Cyclobenzaprine [Flexeril] 10 mg PO TID PRN 01/12/17 02/04/17 History Diclofenac Sodium [Pennsaid] 1 spray TOPICAL Q4H PRN 01/12/17 02/04/17 History Fluticasone Nasal [place] [Flonase 1 spray EA NOSTRIL DAILY 01/12/17 02/04/17 History Nasal [place]] Bacillus Coagulans [Digestive 1 tab PO DAILY 01/24/17 02/04/17 History Advantage] Loperamide HCl [Imodium A-D] 2 mg PO BID 01/24/17 02/04/17 History Aspirin 162.5 mg PO DAILY 02/04/17 02/04/17 History Nicotine 21Mg/24Hr Patch [Habitrol] 1 patch TRANSDERM DAILY 02/04/17 02/04/17 History Allergies Allergy/AdvReac Type Severity Reaction Status Date / Time No Known Allergies Allergy Verified 02/04/17 12:49 Results CBC & Chem 7: 02/05/17 06:28 02/04/17 12:39
--- NOTE | 2017-02-05 14:04 | P.PN ---
Progress Note - Text Patient is a 56-year-old male who is seen and examined at bedside for follow-up evaluation for his left knee. He is status post left total knee arthroplasty performed by Dr. Mitesh Le on 01/25/2017. He continues to be treated for postoperative infection, cellulitis, swelling, and pain. Since being seen and examined yesterday, he does state the swelling has decreased in the left lower extremity. He was seen and examined by Dr. Borden in infectious disease yesterday. Dressing was changed during the examination. He continues to keep the dressing including Jonathan wrap intact over the left lower extremity. A knee immobilizer has been ordered and delivered. He states he is currently waiting for further evaluation by Dr. Borden in infectious disease today. At that time we will plan for a dressing change. We discussed following the dressing change , he should have the immobilizer placed and should keep this intact. He has been eating and voiding without difficulty. Physical Exam Total Knee Arthroplasty: Status post surgical day number 11 Patient is awake, alert, and oriented 3 Vital signs stable Good chest excursion with deep inspiration and expiration Evidence of jonathan wrap dressing over the lower thigh extending to the top of the left foot that is intact No significant pain with light palpation over the left lower extremity. Evidence of a small [place] of dried blood over the anterior portion of the left knee Patient is able to wiggle toes of the left lower extremity significant difficulty. Neurovascular status left lower extremity intact Capillary refill lower extremity is bilaterally less than 2 seconds Pertinent studies: Ultrasound venous Doppler duplex left lower extremity: Negative for DVT X-rays left knee: Identified changes of total knee arthroplasty with femoral and tibial components appearing to be well seated; alignment is anatomic; postsurgical soft tissue changes noted Assessment: Cellulitis left lower extremity Status post left total knee arthroplasty Left lower extremity leg pain and swelling Postop infection Plan: 1. Patient has been seen and examined by Dr. Mitesh Le and myself. Patient will plan remain in the hospital over the weekend with possible plans for discharge this coming 02/07/2017. Patient may be out of bed to ambulate to the restroom but we do not want him to have increased activities or ambulation with physical therapy. A knee immobilizer has been delivered. We will plan to have a dressing plant changer the left knee. After changing of the dressing, knee immobilizer will be placed. Patient should keep his knee immobilizer intact at all times. He must have his immobilizer intact during ambulation. We will continue with daily dressing changes. We will plan to continue with antibiotic regimen with Vancomycin and ceftazidime per Dr. Mitesh Le's and Dr. Borden' recommendations. Continue pain control with Percocet as prescribed. We will continue follow patient closely. 2. Dr. Cintron in medicine to continue following the patient; cultures are pending 3. Dr. Borden in infectious disease will continue following the patient 4. I have discussed this patient in detail with Dr. Mitesh Le and he agrees with this plan
--- NOTE | 2017-02-05 15:45 | XR ---
EXAMINATION TYPE: XR chest 2V DATE OF EXAM: 02/05/2017 COMPARISON: 09/22/2012 INDICATION: Cough TECHNIQUE: Frontal and lateral views of the chest are obtained. FINDINGS: The heart size is normal. The pulmonary vasculature is normal. There is some mild linear opacities within the lower lung stoner could be some scarring or atelectasi s. These were not present on the comparison 09/22/2012.. IMPRESSION: 1. Streak atelectasis versus scarring at the bilateral lung bases.
--- NOTE | 2017-02-05 16:24 | P.PN ---
Progress Note - Text Presenting complaint: Left leg infection Interval history: Patient with recent left knee revision admitted with infection of left leg currently wrapped. Pain control. Tolerating his diet well. No chest pain. Review of systems: Was done for constitutional, cardiovascular, GI, pulmonary. relevant finding as above Current medications are reviewed and include IV ceftazidime and IV vancomycin VITAL SIGNS: [97.1, 102, 16, 157/90, 92% room air] GENERAL APPEARANCE: . Lying in bed, comfortable. EYES: Pupils equal. Conjunctiva normal. NECK: JVD not raised. Mass not palpable. RESPIRATORY: Respiratory effort normal. Lungs decreased breath sounds. CARDIOVASCULAR: First and second sounds normal. No edema. ABDOMEN: Soft. Liver and spleen not palpable. No tenderness. No mass palpable. PSYCHIATRY: Alert and oriented x3. Mood and affect anxious EXTREMITY: Left lower extremity in dressing Investigations: White count 7.4 CRP 47.1 Chest [id number] Assessment: -Possible acute left leg cellulitis, and is unclear if it is the joint or the skin below that is infected and will defer this to the infectious disease/Dr. Borden to determine that. -Chronic nicotine dependence patient is smoker -Essential hypertension -Primary osteoarthritis in the joints -Chronic hepatitis C -Anxiety depression otherwise specified Plan: Continue current medication treatment plan. Care was discussed with the patient. Antibiotics recorded by Dr. Borden.
--- NOTE | 2017-02-05 17:52 | P.PN ---
Subjective Principal diagnosis: Pain left leg This is an -[place] male but that gives history that he had revision of a total knee arthroplasty on January 25. He states he originally had surgery on his left knee in 2012 in June 2013 he had have a meniscus replaced apparently because it was the wrong size. Since he had his surgery last week, he states he has had continuous drainage from the wound along with swelling that worsen over the past 2 days. He states the pain or chills and no previous antibiotics. He has been using hydrogen peroxide to clean the wound. He was seen by his orthopedic surgeon admitted to hospital. Infectious disease consultation was requested and patient was found to have evidence of a cellulitis to the left leg. Antibiotic therapy is initiated. An orthopedic is immobilized the limb to try to help with the swelling and infection of the tissue. The patient steadily improved today. His pain is better. Swelling to the foot and erythema to the foot is resolved. Swelling to the leg erythema leg is also noted to be improved. Objective - Vital Signs Vital signs: Vital Signs Temp 98.0 F 02/05/17 14:37 Pulse 101 H 02/05/17 14:37 Resp 18 02/05/17 14:37 BP 153/92 02/05/17 14:37 Pulse Ox 94 L 02/05/17 14:37 Intake & Output 02/04/17 02/05/17 02/05/17 18:59 06:59 18:59 Intake Total 70 550 1780 Output Total 950 Balance 70 -400 1780 Weight 108 kg Intake: IV 70 700 Sodium Chloride 0.9% 1, 70 700 000 ml @ 70 mls/hr IV . [id number] [facility] Rx#:[id number] Oral 550 1080 Output: Urine 950 - Exam Gen: This is a 56-year-old -[place] male. He appears to be in no acute distress. Patient is sleeping and awakens easily. HEENT: Head is atraumatic, normocephalic. Pupils equal, round. Sclerae is anicteric. Conjunctiva pink. Mucous members of the mouth are dry. NECK: Supple. No JVD. No lymphadenopathy. No thyromegaly. LUNGS: Clear to auscultation. No wheezes or rhonchi. No intercostal retractions. HEART: Regular rate and rhythm. No murmur. ABDOMEN: Soft. Bowel sounds are present. No masses. No tenderness. EXTREMITIES: The right leg is without acute changes. The left leg shows evidence the marked improvement of the swelling and erythema to the foot. The area of tenderness on the dorsum of the foot is also resolved. The patient is pleased with his progress. The erythema and swelling to the leg is also improved with decompression and the elevation and now the immobilization as per orthopedics. There is improvement. Drainage is also improved NEUROLOGICAL: Patient is awake, alert and oriented x3. - Labs CBC & Chem 7: 02/05/17 06:28 02/04/17 12:39 Labs: Abnormal Lab Results - Last 24 Hours (Table) 02/05/17 Range/Units 06:28 Hgb 12.9 L (13.0-17.5) gm/dL Microbiology - Last 24 Hours (Table) 02/04/17 13:09 Blood Culture - Preliminary Blood No Growth after 24 hours Laboratory Results WBC 7.4 k/uL (3.8-10.6) 02/05/17 06:28 RBC 4.32 m/uL (4.30-5.90) 02/05/17 06:28 Hgb 12.9 gm/dL (13.0-17.5) L 02/05/17 06:28 Hct 39.7 % (39.0-53.0) 02/05/17 06:28 MCV 91.9 fL (80.0-100.0) 02/05/17 06:28 MCH 29.8 pg (25.0-35.0) 02/05/17 06:28 MCHC 32.4 g/dL (31.0-37.0) 02/05/17 06:28 RDW 15.1 % (11.5-15.5) 02/05/17 06:28 Plt Count 415 k/uL (150-450) 02/05/17 06:28 Neutrophils % 55 % 02/05/17 06:28 Lymphocytes % 26 % 02/05/17 06:28 Monocytes % 9 % 02/05/17 06:28 Eosinophils % 8 % 02/05/17 06:28 Basophils % 1 % 02/05/17 06:28 Neutrophils # 4.1 k/uL (1.3-7.7) 02/05/17 06:28 Lymphocytes # 1.9 k/uL (1.0-4.8) 02/05/17 06:28 Monocytes # 0.6 k/uL (0-1.0) 02/05/17 06:28 Eosinophils # 0.6 k/uL (0-0.7) 02/05/17 06:28 Basophils # 0.1 k/uL (0-0.2) 02/05/17 06:28 ESR 37 mm/hr (0-15) H 02/04/17 12:39 Sodium 135 mmol/L (137-145) L 02/04/17 12:39 Potassium 4.0 mmol/L (3.5-5.1) 02/04/17 12:39 Chloride 95 mmol/L (98-107) L 02/04/17 12:39 Carbon Dioxide 29 mmol/L (22-30) 02/04/17 12:39 Anion Gap 11 mmol/L 02/04/17 12:39 BUN 13 mg/dL (9-20) 02/04/17 12:39 Creatinine 0.93 mg/dL (0.66-1.25) 02/04/17 12:39 Est GFR (MDRD) Af Amer >60 (>60 ml/min/1.73 sqM) 02/04/17 12:39 Est GFR (MDRD) Non-Af >60 (>60 ml/min/1.73 sqM) 02/04/17 12:39 Glucose 91 mg/dL (74-99) 02/04/17 12:39 Calcium 9.2 mg/dL (8.4-10.2) 02/04/17 12:39 Total Bilirubin 1.4 mg/dL (0.2-1.3) H 02/04/17 12:39 AST 59 U/L (17-59) 02/04/17 12:39 ALT 47 U/L (21-72) 02/04/17 12:39 Alkaline Phosphatase 106 U/L (38-126) 02/04/17 12:39 C-Reactive Protein 47.1 mg/L (<10.0) H 02/04/17 12:39 Total Protein 7.8 g/dL (6.3-8.2) 02/04/17 12:39 Albumin 4.2 g/dL (3.5-5.0) 02/04/17 12:39 Microbiology 02/04/17 13:09 Blood Blood Culture - Preliminary No Growth after 24 hours Assessment and Plan (1) Cellulitis of left leg Narrative/Plan: 56-year-old male status post left total knee arthroplasty presents to Hospital with difficulties with his left leg. He was applying some care in the home setting include utilization of peroxide. The patient had evidence of a cellulitis to the left leg antibiotic therapy has been issue with vancomycin and ceftazidime pending culture results. The patient has had a marked clinical improvement today with elevation and wrap and I will mobilization as per orthopedics. The patient remains accusatory and displeased. This is despite the fact is been a marked improvement to his limb. Antibiotic continue as before and likely will have a oral course of antibiotics the time of his discharge in the next 48 hours if he continues to improve as he has been. It does not appear that pain control is his issue. Continue with protein supplementation and a multivitamin. Status: Acute
[2017-02-05] MEDS: MIRTAZAPINE 15 MG TAB PO SCH (21:01)
[2017-02-05] MEDS: amLODIPine 10 MG TAB PO SCH (21:01)
[2017-02-05] MEDS: SENNOSIDES-DOCUSATE SODIUM 1 EACH TAB PO SCH (21:01)
[2017-02-06] MEDS: HYDROmorphone 1 MG/ML 1 ML SYRINGE IVP PRN ×6 (04:13→20:49)
[2017-02-06] MEDS: oxyCODONE-APAP 10-325MG 1 EACH TAB PO PRN ×5 (04:13→20:49)
[2017-02-06] MEDS: hydrOXYzine PAMOATE 25 MG CAP PO PRN ×5 (04:25→20:48)
[2017-02-06] MEDS: SODIUM CHLORIDE 0.9% 1,000 ML IV SCH (06:46)
[2017-02-06] MEDS: DIAZEPAM 5 MG TAB PO PRN ×2 (08:45→15:29)
[2017-02-06] MEDS: clonazePAM 0.5 MG TAB PO SCH ×2 (08:45→20:48)
[2017-02-06] MEDS: ASPIRIN 325 MG TAB PO SCH ×2 (08:45→20:47)
[2017-02-06] MEDS: cloNIDine HCL 0.2 MG TAB PO SCH ×2 (08:45→20:48)
[2017-02-06] MEDS: HYDROCHLOROTHIAZIDE 25 MG TAB PO SCH (08:45)
[2017-02-06] MEDS: NICOTINE 21MG/24HR PATCH TRANSDERM SCH (08:46)
[2017-02-06] MEDS: MULTIVITAMINS, THERA 1 EACH TAB PO SCH (08:46)
[2017-02-06] MEDS: FLUTICASONE 50MCG/SPRAY NASAL 16GM EA NOSTRIL SCH (09:26)
--- NOTE | 2017-02-06 10:34 | P.PN ---
Progress Note - Text Patient is a 56-year-old male who is seen and examined at bedside for follow-up evaluation for his left knee. He is status post left total knee arthroplasty performed by Dr. Mitesh Le on 01/25/2017. He continues to be treated for postoperative infection, cellulitis, swelling, and pain. Since being seen and examined yesterday, he has been seen and examined by infectious disease. He has undergone dressing change with placement of a knee immobilizer over the left lower extremity. He has been wearing this brace without difficulty. He continues receive IV antibiotic treatment. He is not currently complaining of any significant pain. He has been eating and voiding without difficulty. He states he is hopefully discharge home tomorrow. Per recommendations by Dr. Borden, patient may be discharged home over the next 48 hours on oral antibiotic. Culture results continue to be pending. Preliminary blood culture results show no growth after 24 hours. Physical Exam Total Knee Arthroplasty: Status post surgical day number 12 Patient is awake, alert, and oriented 3 Vital signs stable Good chest excursion with deep inspiration and expiration Evidence of rodrigo wrap dressing over the lower thigh extending to the top of the left foot that is intact Knee Immobilizer intact left lower extremity No significant pain with light palpation over the left lower extremity. Evidence of some generalized swelling and mild erythema over the top of the left foot Patient is able to wiggle toes of the left lower extremity significant difficulty. Neurovascular status left lower extremity intact Pertinent studies: Ultrasound venous Doppler duplex left lower extremity: Negative for DVT X-rays left knee: Identified changes of total knee arthroplasty with femoral and tibial components appearing to be well seated; alignment is anatomic; postsurgical soft tissue changes noted Assessment: Cellulitis left lower extremity Status post left total knee arthroplasty Left lower extremity leg pain and swelling Postop infection Plan: 1. Patient has been seen and examined by Dr. Mitesh Le and myself. Patient has had some improvement as compared to yesterday. Patient will plan remain in the hospital over the weekend with possible plans for discharge this coming 02/07/2017. Patient may be out of bed to ambulate to the restroom but we do not want him to have increased activities or ambulation with physical therapy. Dressing over the left knee has been changed and knee immobilizer has been placed. He has been wearing his brace without difficulty. We'll continue with daily dressing changes. We discussed he must continue to keep the immobilizer intact and may ambulate to the restroom with this brace intact. We will plan to continue with antibiotic regimen with Vancomycin and ceftazidime per Dr. Mitesh Le's and Dr. Borden' recommendations. Continue pain control with Percocet as prescribed. We will continue follow patient closely. 2. Dr. Cintron in medicine to continue following the patient; cultures are pending 3. Dr. Borden in infectious disease will continue following the patient 4. I have discussed this patient in detail with Dr. Mitesh Le and he agrees with this plan
[2017-02-06] MEDS ORDERED: VANCOMYCIN TROUGH DUE 1 EACH MISC MISCELLANE ONE (11:00)
[2017-02-06 11:26] LABS: Anion Gap 9 mmol/L; Blood Urea Nitrogen 13 mg/dL (9-20); Calcium 9.2 mg/dL (8.4-10.2); Carbon Dioxide 28 mmol/L (22-30); Chloride 103 mmol/L (98-107); Glucose 115 mg/dL (74-99); Non-African American GFR(MDRD) >60 (>60 ml/min/1.73 sqM); Sodium 140 mmol/L (137-145)
[2017-02-06] MEDS: VANCOMYCIN 1,750 MG in SODIUM CHLORIDE 0.9% 250 ML IVPB SCH (12:15)
[2017-02-06] MEDS: CYCLOBENZAPRINE 10 MG TAB PO PRN ×2 (12:58→17:09)
--- NOTE | 2017-02-06 18:01 | P.PN ---
Progress Note - Text Date of service 02/06/2017 Presenting complaint: Left leg infection Interval history: Patient with recent left knee revision admitted with infection of left leg currently wrapped. Sitting up in the bed. Playing with his smart phone. Appears very comfortable.. No fever. No shortness of shortness of breath. No chest pain. Had all his meals. 100% Review of systems: Was done for constitutional, cardiovascular, GI, pulmonary. Musculoskeletal, dermatological relevant finding as above Current medications are reviewed and include IV ceftazidime and IV vancomycin VITAL SIGNS: ] 98.5, 95, 16, 136/86, 96% room air GENERAL APPEARANCE: . Propped up in bed, comfortable. EYES: Pupils equal. Conjunctiva normal. NECK: JVD not raised. Mass not palpable. RESPIRATORY: Respiratory effort normal. Lungs decreased breath sounds. CARDIOVASCULAR: First and second sounds normal. No edema. ABDOMEN: Soft. Liver and spleen not palpable. No tenderness. No mass palpable. PSYCHIATRY: Alert and oriented x3. Mood and affect anxious EXTREMITY: Left lower extremity in dressing, some edema of the left foot decreased from yesterday Investigations: Potassium 4.0 Assessment: -Possible acute left leg cellulitis, and is unclear if it is the joint or the skin below that is infected and will defer this to the infectious disease/Dr. Borden to determine that. -Chronic nicotine dependence patient is smoker -Essential hypertension -Primary osteoarthritis in the joints -Chronic hepatitis C -Anxiety depression otherwise specified Plan: Continue current medication treatment plan. Care was discussed with the patient. Discussed extensively with the patient about cessation of smoking.- Additional 10 minutes was spent in counseling. Antibiotics to continue per Dr. Borden.
[2017-02-06] MEDS: amLODIPine 10 MG TAB PO SCH (20:47)
[2017-02-06] MEDS: SENNOSIDES-DOCUSATE SODIUM 1 EACH TAB PO SCH (20:48)
[2017-02-06] MEDS: MIRTAZAPINE 15 MG TAB PO SCH (20:48)
[2017-02-07] MEDS: DIAZEPAM 5 MG TAB PO PRN ×2 (00:11→08:19)
[2017-02-07] MEDS: HYDROmorphone 1 MG/ML 1 ML SYRINGE IVP PRN ×3 (00:12→08:58)
[2017-02-07] MEDS: hydrOXYzine PAMOATE 25 MG CAP PO PRN ×3 (01:16→10:09)
[2017-02-07] MEDS: VANCOMYCIN 1,750 MG in SODIUM CHLORIDE 0.9% 250 ML IVPB SCH ×3 (01:16→13:00)
[2017-02-07] MEDS: oxyCODONE-APAP 10-325MG 1 EACH TAB PO PRN ×3 (01:16→10:09)
[2017-02-07 02:58] VITALS: RESP 16
[2017-02-07] MEDS: SODIUM CHLORIDE 0.9% 1,000 ML IV SCH (08:18)
[2017-02-07] MEDS: cloNIDine HCL 0.2 MG TAB PO SCH (08:19)
[2017-02-07] MEDS: clonazePAM 0.5 MG TAB PO SCH (08:19)
[2017-02-07] MEDS: ASPIRIN 325 MG TAB PO SCH (08:19)
[2017-02-07] MEDS: MULTIVITAMINS, THERA 1 EACH TAB PO SCH (08:19)
[2017-02-07] MEDS: NICOTINE 21MG/24HR PATCH TRANSDERM SCH (08:19)
[2017-02-07] MEDS: FLUTICASONE 50MCG/SPRAY NASAL 16GM EA NOSTRIL SCH (08:20)
[2017-02-07 09:02] LABS: Basophils # (A) 0.1 k/uL (0-0.2); Basophils % (A) 1 %; Eosinophils # (A) 0.8 k/uL (0-0.7); Eosinophils % (A) 9 %; HCT 40.7 % (39.0-53.0); HDW 3.29; HGB 13.2 gm/dL (13.0-17.5); Luc # (Auto) 0.27; Luc % (Auto) 3; Lymphocytes # (A) 2.1 k/uL (1.0-4.8); Lymphocytes % (A) 22 %; MCH 29.9 pg (25.0-35.0); MCHC 32.5 g/dL (31.0-37.0); Mean Platelet Volume 6.8; Monocytes # (A) 0.5 k/uL (0-1.0); Monocytes % (A) 5 %; Neutrophils # (A) 5.5 k/uL (1.3-7.7); Neutrophils % (A) 60 %; RBC 4.42 m/uL (4.30-5.90); RDW 14.8 % (11.5-15.5); WBC 9.2 k/uL (3.8-10.6); WBC (Perox) 8.89
[2017-02-07 09:55] VITALS: BP 133/86; PULSE 92; TEMP 97.7
[2017-02-07] MEDS: HYDROCHLOROTHIAZIDE 25 MG TAB PO SCH (10:09)
--- NOTE | 2017-02-07 10:19 | P.DS ---
Providers Date of admission: 02/04/17 11:56 Expected date of discharge: 02/07/17 Attending physician: Mitesh Le Consults: 02/04/17 11:31 Consult Physician Routine Consulting Provider: Dipak Borden Consult Reason/Comments: cellulitis, s/p revision total knee arthroplasty, leg swelling Do you want consulting provider notified?: Yes 02/04/17 15:33 Consult Physician Routine Consulting Provider: Anil Cintron Consult Reason/Comments: medical management Do you want consulting provider notified?: Yes Primary care physician: Edison Mascorro - Anna Diagnosis(es) (1) Cellulitis of left leg Current Visit: Yes Status: Acute (2) Post op infection Current Visit: Yes Status: Acute (3) S/P total knee arthroplasty Current Visit: No Status: Acute (4) Left leg swelling Current Visit: Yes Status: Acute (5) Left leg pain Current Visit: Yes Status: Acute Hospital Course: This is a 56-year-old male who is status post left total knee arthroplasty on . The patient presented for outpatient follow-up with Dr. Mitesh Le on 02/04/2017 with evidence for cellulitis of the left lower extremity. Patient was then admitted as an inpatient on 02/04/2017 for IV antibiotics and further evaluation. Patient was placed in a knee immobilizer. A venous Doppler was done and was negative for DVT. Infectious disease was consulted. Patient's symptoms have been improving on IV antibiotics. There is less swelling and less erythema to the left lower extremity. Patient's pain is under control. Labs and vital signs are stable on day of discharge. Patient will be sent home on oral antibiotics per infectious disease. On day of discharge patient's knee incision is healing well. Surgical tape is removed. There is mild erythema of the left lower extremity along with mild swelling which has improved since he was first admitted. There is no drainage noted at this time. Patient has full foot and ankle motion. Neurovascular status to the left lower extremity is intact. Patient is discharged home in good condition. Please see med rec for accurate list of home medications. Plan - Discharge Summary New Discharge Prescriptions: No Action hydrOXYzine PAMOATE [Vistaril] 25 mg PO BID PRN PRN Reason: Anxiety Naproxen [Naprosyn] 500 mg PO Q12HR PRN PRN Reason: Pain Mirtazapine [Remeron] 15 mg PO HS Ibuprofen [Motrin] 600 mg PO Q6HR PRN PRN Reason: Pain Hydrochlorothiazide 25 mg PO DAILY clonazePAM [KlonoPIN] 0.5 mg PO BID amLODIPine BESYLATE [Norvasc] 10 mg PO HS oxyCODONE HCL [oxyCODONE HCL ER] 30 mg PO HS oxyCODONE-APAP 10-325MG [Percocet 10-325 mg] 1 tab PO Q4H PRN PRN Reason: Pain hydrOXYzine PAMOATE [Vistaril] 25 mg PO BID cloNIDine HCL [Catapres] 0.2 mg PO BID Fluticasone Nasal [place] [Flonase Nasal [place]] 1 spray EA NOSTRIL DAILY Diclofenac Sodium [Pennsaid] 1 spray TOPICAL Q4H PRN PRN Reason: pain /solution 2% Cyclobenzaprine [Flexeril] 10 mg PO TID PRN PRN Reason: MUSCLE SPASM /BACK PAIN Bacillus Coagulans [Digestive Advantage] 1 tab PO DAILY Loperamide HCl [Imodium A-D] 2 mg PO BID Sennosides-Docusate Sodium [Senokot-S] 1 tab PO BID #60 tablet Aspirin 162.5 mg PO DAILY Nicotine 21Mg/24Hr Patch [Habitrol] 1 patch TRANSDERM DAILY Discharge Medication List Hydrochlorothiazide 25 mg PO DAILY 01/11/17 [History] Ibuprofen [Motrin] 600 mg PO Q6HR PRN 01/11/17 [History] Mirtazapine [Remeron] 15 mg PO HS 01/11/17 [History] Naproxen [Naprosyn] 500 mg PO Q12HR PRN 01/11/17 [History] amLODIPine BESYLATE [Norvasc] 10 mg PO HS 01/11/17 [History] cloNIDine HCL [Catapres] 0.2 mg PO BID 01/11/17 [History] clonazePAM [KlonoPIN] 0.5 mg PO BID 01/11/17 [History] hydrOXYzine PAMOATE [Vistaril] 25 mg PO BID 01/11/17 [History] hydrOXYzine PAMOATE [Vistaril] 25 mg PO BID PRN 01/11/17 [History] oxyCODONE HCL [oxyCODONE HCL ER] 30 mg PO HS 01/11/17 [History] oxyCODONE-APAP 10-325MG [Percocet 10-325 mg] 1 tab PO Q4H PRN 01/11/17 [History] Cyclobenzaprine [Flexeril] 10 mg PO TID PRN 01/12/17 [History] Diclofenac Sodium [Pennsaid] 1 spray TOPICAL Q4H PRN 01/12/17 [History] Fluticasone Nasal [place] [Flonase Nasal [place]] 1 spray EA NOSTRIL DAILY 01/12/17 [History] Bacillus Coagulans [Digestive Advantage] 1 tab PO DAILY 01/24/17 [History] Loperamide HCl [Imodium A-D] 2 mg PO BID 01/24/17 [History] Sennosides-Docusate Sodium [Senokot-S] 1 tab PO BID #60 tablet 01/27/17 [Rx] Aspirin 162.5 mg PO DAILY 02/04/17 [History] Nicotine 21Mg/24Hr Patch [Habitrol] 1 patch TRANSDERM DAILY 02/04/17 [History] Follow up Appointment(s)/Referral(s): Mitesh Le DO [Doctor of Osteopathic Medicine] - 1 Week Activity/Diet/Wound Care/Special Instructions: Please keep the immobilizer on at all times. No CPM, No physical therapy at this time Weightbearing as tolerated. Change dressing daily Rest, ice, elevate and use Jonathan wrap to the left leg. Please use medications as prescribed. Follow-up in the office at [facility] in one week. Any questions call [phone] Discharge Disposition: HOME WITH HOME HEALTH SERVICES
--- NOTE | 2017-02-07 19:36 | PN ---
DATE OF SERVICE: 02/07/2017 PRESENTING COMPLAINT: Left leg cellulitis. INTERVAL HISTORY: This is a patient with recent left knee revision arthroplasty , presented with left leg cellulitis. Pain is much better controlled. Sitting up, comfortable, eating all his meals. Patient keeps complaining about his care with surgery and talking about law suits. Rather comfortable currently. REVIEW OF SYSTEMS: CONSTITUTIONAL: None. CARDIOVASCULAR: None. GI: None. PULMONARY: None. MUSCULOSKELETAL: None. Findings as above. Current medications are reviewed. On examination, temperature is 97.7, pulse 92, respirations 16, blood pressure 132/86, pulse ox 93% on room air. GENERAL APPEARANCE: Sitting up, comfortable. EYES: Pupils equal. Conjunctivae normal. NECK: JVD not raised. Mass not palpable. RESPIRATORY EFFORT: Normal. LUNGS: Fair air entry. CARDIOVASCULAR: First and second normal. Some edema in the foot. ABDOMEN: Soft, nontender. Liver and spleen not palpable. PSYCHIATRY: Alert and oriented x3. Mood and affect, some anxiety present. EXTREMITIES: Lower extremity is in a dressing. Some edema of the left foot. INVESTIGATIONS: White count 9.2, hemoglobin 13.2. ASSESSMENT: 1. Acute left leg cellulitis, being followed by Dr. Borden. 2. Chronic nicotine dependence, the patient is a smoker. 3. Essential hypertension. 4. Primary osteoarthritis in the joints. 5. Chronic hepatitis C. 6. Anxiety and depression not otherwise specified. PLAN: I, again, counseled the patient against smoking. He is still talking about law suits with the surgical care. I did high school guidance counselor him against smoking. He wants to think about it. I am giving him a prescription for a nicotine patch or nicotine gum. The patient wants Valium tablets for muscle spasms. I did tell him orthopedics will decide if that is the case. Then he said he wants it for anxiety. I said that heavy dose of Valium is not indicated for anxiety and he should use nicotine gum and nicotine patch. The patient, otherwise, looks rather comfortable. Patient told to follow up with . [facility]
== END 2017-02-07 13:40 | disposition home health service (06) | DRG 863 ==
LOC: 3SUR 11:56
PROVIDERS: ADMIT Orthopaedic Surgery; ATTEND Orthopaedic Surgery
DX: T81.4XXA Infection following a procedure, initial encounter (principal); I10 Essential (primary) hypertension; L03.116 Cellulitis of left lower limb; M79.89 Other specified soft tissue disorders; M79.605 Pain in left leg; M19.91 Primary osteoarthritis, unspecified site; F41.9 Anxiety disorder, unspecified; F32.9 Major depressive disorder, single episode, unspecified; B18.2 Chronic viral hepatitis C; G89.29 Other chronic pain; R05 Cough; F17.200 Nicotine dependence, unspecified, uncomplicated; Z71.6 Tobacco abuse counseling; Z91.19 Patient's noncompliance with other medical treatment and regimen; Z56.0 Unemployment, unspecified; Z86.14 Personal history of Methicillin resistant Staphylococcus aureus infection; Z79.899 Other long term (current) drug therapy; Z79.1 Long term (current) use of non-steroidal anti-inflammatories (NSAID); Z79.891 Long term (current) use of opiate analgesic; Z79.51 Long term (current) use of inhaled steroids; Z96.653 Presence of artificial knee joint, bilateral; Z86.79 Personal history of other diseases of the circulatory system
CPT/HCPCS: 71020; 80048; 80053; 80202; 85025; 85652; 86140; 87040

== ENCOUNTER 2017-08-08 10:04 | Inpatient (IN) | payer OTHER, MEDICARE ==
[2017-08-01 14:48] VITALS: BMI 36.8
[~2017-08-08 10:04] MED LIST changes: +HYDROmorphone 0.5 MG/0.5 ML SYRINGE IVP PRN; -MIDAZOLAM 2 MG/2 ML VIAL IV PRN; -SCOPOLAMINE 1.5MG/72HR PATCH TRANSDERM ONE; -TRANEXAMIC ACID 1,000 MG in SODIUM CHLORIDE 0.9% 100 ML IVPB ONE; +TRANEXAMIC ACID 1,000 MG in SODIUM CHLORIDE 0.9% 50 ML IVPB ONE; -VANCOMYCIN 1,500 MG in SODIUM CHLORIDE 0.9% 250 ML IVPB ONE; -ceFAZolin 2 GM in SODIUM CHLORIDE 0.9% 100 ML IVPB ONE; +ceFAZolin IN SWFI 2 GM/20 ML SYRINGE IVP ONE
[2017-08-08] MEDS ORDERED: LIDOCAINE 1% 20 ML VIAL (10MG/ML) FOR IV START INTRADERMA ONE (10:37)
[2017-08-08] MEDS: LACTATED RINGERS 1,000 ML IV SCH (10:37)
[2017-08-08] MEDS ORDERED: MIDAZOLAM 2 MG/2 ML VIAL IV ONE (11:12)
[2017-08-08] MEDS ORDERED: ROPIVACAINE 246.25 MG, EPINEPHrine 0.5 MG, KETOROLAC 30 MG, cloNIDine HCL/PF 80 MCG, WA... MISCELLANE ONE ×5 (11:21)
[2017-08-08] MEDS ORDERED: fentaNYL (PF) 50 MCG/ML 2 ML AMP IV ONE ×2 (12:01→12:09)
[2017-08-08] MEDS ORDERED: SODIUM CHLORIDE 0.9% 20 ML with ceFAZolin 2 GM IV ONE ×2 (12:12)
[2017-08-08] MEDS ORDERED: LACTATED RINGERS 1,000 ML IV ONE (13:01)
[2017-08-08] MEDS ORDERED: ceFAZolin 3,000 MG in SODIUM CHLORIDE 0.9% IRRIGATIO 3,000 ML IRRIGATION ONE (13:01)
--- NOTE | 2017-08-08 14:19 | P.OP ---
Date of Procedure: 08/08/17 Preoperative Diagnosis: Infection left total knee arthroplasty, status post stage I revision total knee arthroplasty with placement of antibiotic spacer Postoperative Diagnosis: Infection left total knee arthroplasty, status post stage I revision total knee arthroplasty with placement of antibiotic spacer Procedure(s) Performed: Stage II revision left total knee arthroplasty Implants: Lyons [employer] Nephew Oxinium Legion constrained femoral component size 5, left Lyons [employer] Nephew 16 mm x 160 mm Legion press-fit stem [employer] Nephew legion left revision tibial baseplate size 5 Lyons [employer] Nephew 10 mm left medial tibial wedge, size 5-6 Lyons [employer] Nephew 6 mm Legion offset technician support engineer Lyons [employer] Nephew 11 mm x 120 mm Legion press-fit stem [employer] Nephew size 18 mm Mary Anne II constrained articular insert, size 5-6 Lyons [employer] Nephew Mary Anne II resurfacing patellar component, 32 mm All components were cemented using 2 batches of Blair antibiotic Simplex P bone cement with tobramycin The articulation is Oxinium on polyethylene. Anesthesia: spinal Surgeon: Mitesh Le Environmental Geologist #1: Grace Cox Estimated Blood Loss (ml): 100 Pathology: other (Cultures 2. Frozen section) Condition: stable Disposition: PACU Indications for Procedure: This is a 56-year-old gentleman who had a revision left total knee arthroplasty in the fall. He developed an MRSA infection in his left knee, and had a stage I revision left total knee arthroplasty with placement of antibiotic spacer. After IV antibiotics, infectious disease felt the infection had been eradicated. He now presents for stage II revision. Operative Findings: operative findings are consistent with a stage I revision left total knee arthroplasty. Frozen section during the surgery did not display any active acute inflammation. Description of Procedure: Patient was seen in the preoperative area consent was reviewed and operative site was marked with a skin marker. Patient was then brought to the operating room and given preoperative antibiotics intravenously. A spinal anesthetic was administered by the anesthesia department. A tourniquet was placed on the upper thigh and the lower extremity was prepped and draped in usual sterile fashion. A universal timeout was then performed which confirmed the patient's name, surgical site, ALLERGIES, and consent. The lower extremity was then exsanguinated and tourniquet was inflated to 250 mmHg. A standard and anterior midline approach to the knee was performed with the prior scar being excised. The skin and subcutaneous tissue was dissected down to the patellar tendon. A medial parapatellar arthrotomy was then performed. A moderate amount of fluid was encountered, and this was cultured 2. The fluid did appear to be clear. The knee was then extended, the patellar was everted, and the knee was again flexed. A quadriceps snip was performed in order to aid in exposure. The antibiotic spacer was then removed without difficulty. Frozen section was obtained which was found to have no acute inflammation. The femoral canal was then reamed to the appropriate size by hand. Cutting blocks were then used to freshen the bone edges. The femoral trial was then placed. Attention was then directed to the tibia. The tibial canal was then reamed by hand to the appropriate depth. The proximal tibia was then cut only to freshen the bone edges. Trials were then placed with appropriate amount of offset. Constrained trial was then placed and the knee was then extended. He was able to fully extend and flex to 110 and was stable throughout all range of motion. He was then directed to the patella. The patella was then everted and freshened with a saw. Patella drill guide was then placed, patella holes were drilled. The patella trial was then placed. Knee was taken through range of motion and the patella tracked normally. Trials were then removed. The cut surfaces of bone were then irrigated with pulsatile lavage. The posterior structures were injected with the ropivacaine solution. The knee was also irrigated with Irrisept solution. The components were then opened, the cement was mixed, and the components were then cemented in place. The cement was allowed to harden with the knee in full extension. While the cement was hardening, the remaining soft tissues were then injected with a ropivacaine solution, which consisted of 246.25 mg of ropivacaine, 0.5 mg of epinephrine, 30 mg of Toradol, 80 g of clonidine, and 48.45 mL of sterile water, for a total of 100 mL of fluid injected. After the cemented hardened. The tourniquet was released, and hemostasis was obtained. A second gram of transexamic acid was given. The knee was again irrigated. The knee was again taken through range of motion and found to be stable throughout all range of motion of 0-130 , and the patella tracked normally. The fascia was then closed with #2 strata fix suture. The subcutaneous tissue was closed with 3-0 Vicryl and cherry for the skin.. The patient was placed in a sterile silver dressing. Patient was then transferred to recovery room in stable condition. The executive personal assistant KLEVER Manriqeuz was required due the complexity surgery and the need for a skilled surgical assistant certified. She assisted in positioning, draping, retraction, and closure of the wound.
[2017-08-08] MEDS ORDERED: DIAZEPAM 5 MG TAB PO PRN (14:53)
[2017-08-08] MEDS ORDERED: NA PHOS,M-B/NA PHOS,DI-BA 133 ML ENEMA RECTAL PRN (14:53)
[2017-08-08] MEDS ORDERED: MAGNESIUM HYDROXIDE 2,400 MG/10 ML CUP PO PRN (14:53)
[2017-08-08] MEDS ORDERED: BISACODYL 10 MG SUPP RECTAL PRN (14:53)
[2017-08-08] MEDS ORDERED: NALOXONE 0.4 MG/ML 1 ML VIAL IV PRN (14:53)
[2017-08-08] MEDS ORDERED: HYDROmorphone 0.5 MG/0.5 ML SYRINGE IVP PRN ×3 (14:53)
[2017-08-08] MEDS ORDERED: ONDANSETRON 4 MG/2 ML VIAL IVP PRN (14:53)
[2017-08-08] MEDS ORDERED: HYDROcodone/APAP 10-325MG 1 EACH TAB PO PRN ×2 (14:53)
--- NOTE | 2017-08-08 15:18 | XR ---
EXAMINATION TYPE: XR knee limited LT DATE OF EXAM: 08/08/2017 CLINICAL HISTORY: Left knee pain and arthritis status post total knee replacement. TECHNIQUE: Portable AP and crosstable lateral views of the left knee are obtained immediately postop eratively. COMPARISON: None FINDINGS: Metallic hardware from total left knee arthroplasty is seen and appears satisfactory in al ignment and position. There is evidence of recent surgery with diffuse subcutaneous gas, vertical sk in cherry, and soft tissue swelling noted. IMPRESSION: METALLIC HARDWARE FROM TOTAL LEFT KNEE ARTHROPLASTY IS SATISFACTORY IN ALIGNMENT.
[2017-08-08] MEDS: hydrOXYzine PAMOATE 25 MG CAP PO PRN (17:22)
[2017-08-08] MEDS ORDERED: oxyCODONE-APAP 10-325MG 1 EACH TAB PO PRN (17:38)
[2017-08-08] MEDS ORDERED: MORPHINE SULFATE 4 MG/ML SYRINGE IVP PRN ×2 (17:48→17:49)
[2017-08-08] MEDS ORDERED: TRIAMCINOLONE 0.1% CREAM 80 GM TUBE TOPICAL PRN (19:37)
[2017-08-08] MEDS ORDERED: CALCIUM CARBONATE 500 MG CHEWABLE PO PRN (19:37)
[2017-08-08] MEDS: SODIUM CHLORIDE 0.9% 1,000 ML IV SCH (20:07)
[2017-08-08] MEDS: FAMOTIDINE 20 MG TAB PO SCH (20:09)
[2017-08-08] MEDS: SENNOSIDES-DOCUSATE SODIUM 1 EACH TAB PO SCH (20:09)
[2017-08-08] MEDS: hydrOXYzine PAMOATE 25 MG CAP PO SCH (20:11)
[2017-08-08] MEDS: ceFAZolin IN SWFI 2 GM/20 ML SYRINGE IVP SCH (20:11)
[2017-08-08] MEDS ORDERED: SENNOSIDES-DOCUSATE SODIUM 1 EACH TAB PO SCH (21:00)
[2017-08-08] MEDS: oxyCODONE ER 10 MG TAB.ER.12H PO SCH (21:21)
[2017-08-08] MEDS: cloNIDine HCL 0.2 MG TAB PO SCH (21:21)
[2017-08-08] MEDS: MIRTAZAPINE 15 MG TAB PO SCH (21:21)
[2017-08-08] MEDS: clonazePAM 0.5 MG TAB PO PRN (21:30)
[2017-08-08] MEDS: MORPHINE SULFATE 4 MG/ML SYRINGE IVP PRN (22:24)
[2017-08-08] MEDS: NICOTINE 14MG/24HR PATCH TRANSDERM SCH (22:32)
[2017-08-08] MEDS: CYCLOBENZAPRINE 10 MG TAB PO PRN (22:32)
[2017-08-08] MEDS: oxyCODONE-APAP 10-325MG 1 EACH TAB PO PRN (23:59)
--- NOTE | 2017-08-09 01:03 | CONS ---
CONSULTATION DATE OF SERVICE: 08/08/2017. REASON FOR CONSULTATION: Medical management requested by Dr. Le. CONSULTATION: This is a 56-year-old patient of Dr. Mascorro whose chronic stable medical conditions include hypertension, anxiety, and depression. In January 2017 patient had undergone a revision left total knee arthroplasty for failed arthroplasty. The patient subsequently developed cellulitis and subsequent MRSA. The patient had that replaced and patient had an antibiotic spacer placed. On recent workup with Dr. Borden it was felt that the patient did complete the course of antibiotics and there was no further infection. The patient today underwent a second revision knee arthroplasty of the left leg. The patient is quite concerned about his pain medications, like always. REVIEW OF SYSTEMS: CONSTITUTIONAL: None. HEENT: None. RESPIRATORY: None. CARDIOVASCULAR: None. GASTROINTESTINAL: None. GENITOURINARY: None. MUSCULOSKELETAL: Pain in left knee. DERMATOLOGICAL: Tattoos. LYMPHATICS: None. PSYCHIATRY: Anxious. NEUROLOGICAL: None. PAST MEDICAL HISTORY: Hypertension, osteoarthritis, hepatitis C, anxiety, depression, infection of the left knee prosthesis. PAST SURGICAL HISTORY: Blood clot removed from the brain. PSYCHIATRY HISTORY: Anxiety and depression. SOCIAL HISTORY: The patient lives with a friend. The patient smoked half a pack a day since age of 11 and has not smoked for last the last at least 3 to 4 months he states. 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 FAMILY HISTORY: Diabetes. HOME MEDICATIONS: 1. Percocet 10, 1 tab every 6 p.r.n. 2. OxyContin 30 mg p.o. at bedtime. 3. Vistaril 25 mg p.o. b.i.d. 4. Klonopin 0.5 p.o. b.i.d. p.r.n. 5. Catapres 0.2 mg p.o. b.i.d. 6. Norvasc 10 mg p.o. daily. 7. Kenalog 0.1% topical b.i.d. p.r.n. 8. Senokot-S 2 tablets p.o. at bedtime. 9. Nicotine 7 mg patch daily. 10.Naproxen 500 mg every 12 p.r.n. 11.Remeron 50 mg p.o. at bedtime. 12.Hydrochlorothiazide 25 p.o. daily. 13.Flonase 1 spray each nostril daily p.r.n. 14.Iron 325 p.o. daily. 15.Pepcid 20 mg p.o. b.i.d. 16.Flexeril 10 mg p.o. every 8 p.r.n. 17.Tums 500 mg p.o. q.i.d. p.r.n. ALLERGIES: None. PHYSICAL EXAMINATION: On examination, temperature 97.4, pulse 82, respiratory rate 14, blood pressure 120/77, pulse ox 96% on room air. GENERAL APPEARANCE: Well built. BMI 36.8. Sitting up in bed comfortable. EYES: Pupils equal. Conjunctivae normal. HEENT: External oral cavity normal. NECK: JVD not raised. Mass not palpable. Respiratory effort normal. LUNGS: Clear. CARDIOVASCULAR: 1st and 2nd sounds. No edema. ABDOMEN: Soft, nontender. Liver and spleen not palpable. LYMPHATICS: No lymph nodes palpable in neck, groin or axillae. PSYCHIATRY: Alert, oriented x3. Mood and affect normal. NEUROLOGIC: Pupils equal. Cranial nerves grossly intact. Power and sensation grossly intact. EXTREMITIES: Left knee in a dressing. INVESTIGATIONS: No blood work from today. ASSESSMENT: 1. Left total knee second hemiarthroplasty with prior methicillin resistant Staphylococcus aureus infection. 2. Essential hypertension. 3. Primary osteoarthritis. 4. Chronic hepatitis C. 5. Anxiety and depression, not otherwise specified. 6. Obesity, body mass index more than 36. PLAN: Will resume patient's home medications. The patient has been on nicotine patch 14, we will continue that. The patient is on Xarelto for DVT prophylaxis. Patient is on also on IV cefazolin. Care was discussed with the patient. Questions were answered. Thank you, Dr. Le. MMODL / IJN: [id number] /
[2017-08-09] MEDS: MORPHINE SULFATE 4 MG/ML SYRINGE IVP PRN ×5 (01:25→21:52)
[2017-08-09] MEDS: ceFAZolin IN SWFI 2 GM/20 ML SYRINGE IVP SCH (03:37)
[2017-08-09] MEDS: oxyCODONE-APAP 10-325MG 1 EACH TAB PO PRN ×5 (03:37→22:06)
[2017-08-09] MEDS: LACTATED RINGERS 1,000 ML IV SCH (04:15)
[2017-08-09] MEDS: SODIUM CHLORIDE 0.9% 1,000 ML IV SCH ×2 (05:28→11:57)
[2017-08-09 07:10] LABS: Basophils % (A) 0 %; Eosinophils % (A) 0 %; HCT 34.3 % (39.0-53.0); HGB 11.3 gm/dL (13.0-17.5); Lymphocytes # (A) 1.4 k/uL (1.0-4.8); Lymphocytes % (A) 12 %; MCH 27.9 pg (25.0-35.0); MCV 84.5 fL (80.0-100.0); Mean Platelet Volume 7.2; Monocytes # (A) 0.6 k/uL (0-1.0); Monocytes % (A) 5 %; Neutrophils # (A) 9.9 k/uL (1.3-7.7); Neutrophils % (A) 82 %; Platelet Count 243 k/uL (150-450); RBC 4.06 m/uL (4.30-5.90); RDW 15.3 % (11.5-15.5); WBC 12.2 k/uL (3.8-10.6)
[2017-08-09] MEDS: hydrOXYzine PAMOATE 25 MG CAP PO SCH ×2 (09:08→21:53)
[2017-08-09] MEDS: FAMOTIDINE 20 MG TAB PO SCH ×2 (09:09→21:53)
[2017-08-09] MEDS: cloNIDine HCL 0.2 MG TAB PO SCH ×2 (09:09→21:53)
[2017-08-09] MEDS: RIVAROXABAN 10 MG TAB PO SCH (09:10)
[2017-08-09] MEDS: amLODIPine 10 MG TAB PO SCH (09:10)
[2017-08-09] MEDS: NICOTINE 14MG/24HR PATCH TRANSDERM SCH (09:13)
[2017-08-09] MEDS: clonazePAM 0.5 MG TAB PO PRN (11:52)
[2017-08-09] MEDS: FERROUS SULFATE 325 MG TAB PO SCH (11:52)
[2017-08-09] MEDS: CYCLOBENZAPRINE 10 MG TAB PO PRN ×2 (12:47→21:53)
[2017-08-09] MEDS: hydrOXYzine PAMOATE 25 MG CAP PO PRN ×2 (13:52→18:09)
--- NOTE | 2017-08-09 16:09 | P.PN ---
Subjective Progress Note Date: 08/09/17 This is a 56-year-old male status post stage II revision left total knee arthroplasty. Patient has a history of MRSA infection in the left knee. Today patient is evaluated at bedside with Dr. Mitesh Le. Patient complains of drainage the left knee. Patient states his pain is under control. Patient denies any fever/chills, numbness, weakness, tingling, abdominal pain, shortness of breath or chest pain. Objective - Vital Signs Vital signs: Vital Signs Temp 98.3 F 08/09/17 08:49 Pulse 112 H 08/09/17 08:49 Resp 16 08/09/17 08:49 BP 134/78 08/09/17 08:49 Pulse Ox 98 08/09/17 08:49 Intake & Output 08/08/17 08/09/17 08/09/17 18:59 06:59 18:59 Intake Total 1521 600 Output Total 100 1700 1200 Balance 1421 -1100 -1200 Weight 106.594 kg Intake: IV 1521 Oral 600 Output: Urine 1700 1200 Estimated Blood Loss 100 Other: Voiding Method Urinal - Exam Vital signs are stable. Patient is in no acute distress and is alert and oriented 3. Calf is soft and nontender to palpation. Compressive dressing is clean, dry, and intact. Patient has full foot and ankle motion without pain or difficulty. Neurovascular status and circulatory status are intact. - Labs CBC & Chem 7: 08/09/17 06:53 Labs: Abnormal Lab Results - Last 24 Hours (Table) 08/09/17 Range/Units 06:53 WBC 12.2 H (3.8-10.6) k/uL RBC 4.06 L (4.30-5.90) m/uL Hgb 11.3 L (13.0-17.5) gm/dL Hct 34.3 L (39.0-53.0) % Neutrophils # 9.9 H (1.3-7.7) k/uL Microbiology - Last 24 Hours (Table) 08/08/17 14:30 Gram Stain - Preliminary Synovial Fluid Wound Culture - Preliminary 08/08/17 14:35 Gram Stain - Preliminary Synovial Fluid Wound Culture - Preliminary 08/08/17 14:35 Anaerobic Culture - Preliminary Synovial Fluid 08/08/17 14:30 Anaerobic Culture - Preliminary Synovial Fluid Assessment and Plan (1) History of MRSA infection Current Visit: Yes Status: Acute Code(s): Z86.14 - PERSONAL HISTORY OF METHICILLIN RESIS STAPH INFECTION SNOMED Code(s): 820022439 (2) Status post revision of total replacement of left knee Current Visit: Yes Status: Acute Code(s): Z96.652 - PRESENCE OF LEFT ARTIFICIAL KNEE JOINT SNOMED Code(s): 654145496 Plan: #1 Continue with routine postoperative care, continue to reinforce and change dressing as necessary. #2 Anticoagulation with Xarelto. #3 Physical therapy today , no CPM today. Limit activity to prevent drainage. #4 Appreciate input from medicine. #5 Anticipate discharge to rehab in the next 1-2 days.
[2017-08-09] MEDS: SENNOSIDES-DOCUSATE SODIUM 1 EACH TAB PO SCH (20:14)
--- NOTE | 2017-08-09 21:08 | PN ---
PROGRESS NOTE DATE OF SERVICE: 08/09/2017 PRESENTING COMPLAINT: Knee surgery. INTERVAL HISTORY: The patient is status post 2nd left knee arthroplasty. The patient had slight bleeding last night. The patient had a pressure dressing. Otherwise, patient looks rather comfortable in his bed, playing on his cell phone, did tolerate his diet. Breathing is stable. REVIEW OF SYSTEMS: Done for constitutional, cardiovascular, GI, pulmonary, musculoskeletal; relevant findings as above. Current medications reviewed that include Xarelto. EXAMINATION: Temperature 98.3, pulse 112, respirations 16, blood pressure 134/78 pulse ox 98% on room air. GENERAL APPEARANCE: Lying in bed, comfortable. EYES: Pupils equal. Conjunctivae normal. HEENT: External appearance of nose and ears normal. Oral cavity normal. NECK: JVD not raised. Mass not palpable. RESPIRATORY: Effort normal. Lungs are clear to auscultation. CARDIOVASCULAR: First and second sounds normal. No edema. ABDOMEN: Soft, nontender. Liver and spleen not palpable. PSYCHIATRIC: Alert and oriented x3. Mood and affect normal. EXTREMITIES: Left knee in a dressing. INVESTIGATIONS: White count 12.2, hemoglobin 11.3. ASSESSMENT: 1. Left total knee hemiarthroplasty with prior methicillin-resistant Staphylococcus aureus infection. 2. Essential hypertension. 3. Primary osteoarthritis. 4. Chronic hepatitis C. 5. Anxiety, depression, not otherwise specified. 6. Obesity, BMI of more than 36. PLAN: Continue current medication and treatment plan. Care was discussed with the patient. Follow. Thank you, Dr. Le. MMTYRONE / HANN: [id number] /
[2017-08-09] MEDS: MIRTAZAPINE 15 MG TAB PO SCH (21:53)
[2017-08-09] MEDS: oxyCODONE ER 10 MG TAB.ER.12H PO SCH (22:06)
[2017-08-10] MEDS: MORPHINE SULFATE 4 MG/ML SYRINGE IVP PRN ×7 (00:48→23:50)
[2017-08-10] MEDS: oxyCODONE-APAP 10-325MG 1 EACH TAB PO PRN ×5 (01:38→18:05)
[2017-08-10] MEDS: DIAZEPAM 5 MG TAB PO PRN (02:36)
[2017-08-10] MEDS: SODIUM CHLORIDE 0.9% 1,000 ML IV SCH ×2 (07:54→16:28)
[2017-08-10] MEDS: amLODIPine 10 MG TAB PO SCH (08:22)
[2017-08-10] MEDS: NICOTINE 14MG/24HR PATCH TRANSDERM SCH (08:22)
[2017-08-10] MEDS: cloNIDine HCL 0.2 MG TAB PO SCH ×2 (08:22→20:57)
[2017-08-10] MEDS: RIVAROXABAN 10 MG TAB PO SCH (08:23)
[2017-08-10] MEDS: FAMOTIDINE 20 MG TAB PO SCH ×2 (08:23→20:57)
[2017-08-10] MEDS: hydrOXYzine PAMOATE 25 MG CAP PO SCH ×2 (08:23→20:57)
--- NOTE | 2017-08-10 09:06 | P.PN ---
Subjective Progress Note Date: 08/10/17 This is a 56-year-old male status post stage II revision left total knee arthroplasty. Patient has a history of MRSA infection in the left knee. Patient is seen and evaluated at bedside with Dr. Mitesh Le. Patient's incision continues to drain. Patient states his pain is under control. Patient denies any new complaints today. Patient denies any fever/chills, numbness, weakness, tingling, shortness of breath or chest pain. Objective - Vital Signs Vital signs: Vital Signs Temp 98.2 F 08/10/17 07:58 Pulse 111 H 08/10/17 07:58 Resp 16 08/10/17 07:58 BP 131/91 08/10/17 07:58 Pulse Ox 93 L 08/10/17 07:58 Intake & Output 08/09/17 08/10/17 08/10/17 18:59 06:59 18:59 Intake Total 2600 240 Output Total 1200 1500 Balance -1200 1100 240 Intake: Intake, IV Titration 1320 Amount Sodium Chloride 0.9% 1, 1320 000 ml @ 65 mls/hr IV . [id number] [facility] Rx#:[id number] Oral 1280 240 Output: Urine 1200 1500 Other: Voiding Method Urinal Urinal Urinal # Voids 5 # Bowel Movements 1 - Exam Vital signs are stable. Patient is in no acute distress and is alert and oriented 3. Calf is soft and nontender to palpation. There is a moderate amount of drainage noted on the dressing when taken down. Surgical clips are intact. There is drainage towards the bottom of the incision. There is no surrounding erythema or warmth. Patient has full foot and ankle motion without pain or difficulty. Neurovascular status and circulatory status are intact. - Labs CBC & Chem 7: 08/09/17 06:53 Labs: Microbiology - Last 24 Hours (Table) 08/08/17 14:35 Gram Stain - Preliminary Synovial Fluid Wound Culture - Preliminary 08/08/17 14:30 Gram Stain - Preliminary Synovial Fluid Wound Culture - Preliminary Assessment and Plan (1) History of MRSA infection Current Visit: Yes Status: Acute Code(s): Z86.14 - PERSONAL HISTORY OF METHICILLIN RESIS STAPH INFECTION SNOMED Code(s): 919357698 (2) Status post revision of total replacement of left knee Current Visit: Yes Status: Acute Code(s): Z96.652 - PRESENCE OF LEFT ARTIFICIAL KNEE JOINT SNOMED Code(s): 193865071 Plan: #1 Continue with routine postoperative care, continue to reinforce and change dressing as necessary. Compressive Jonathan wrap to left knee. #2 Anticoagulation with Xarelto. #3 Physical therapy today , no CPM today. Limit activity to prevent drainage. #4 Appreciate input from medicine. #5 Anticipate discharge to rehab in the next 1-2 days.
[2017-08-10] MEDS: FERROUS SULFATE 325 MG TAB PO SCH (11:52)
[2017-08-10] MEDS: hydrOXYzine PAMOATE 25 MG CAP PO PRN ×2 (14:12→18:13)
[2017-08-10] MEDS: CYCLOBENZAPRINE 10 MG TAB PO PRN (18:06)
[2017-08-10] MEDS: clonazePAM 0.5 MG TAB PO PRN (18:06)
--- NOTE | 2017-08-10 20:03 | PN ---
PROGRESS NOTE DATE OF SERVICE: 08/10/2017 PRESENTING COMPLAINT: Knee surgery. INTERVAL HISTORY: Patient is status post 2nd left knee arthroplasty. The patient does complain of pain all the time and looks rather very comfortable. Breathing is stable. Tolerating a diet. REVIEW OF SYSTEMS: Done for constitutional, cardiovascular, GI, pulmonary, musculoskeletal; relevant findings as above. CURRENT MEDICATIONS: Reviewed. EXAMINATION: Temperature 98.2 pulse 111, respirations 16, blood pressure 113/91, pulse ox 93% on room air. GENERAL APPEARANCE: Sitting up, rather comfortable, playing on his phone. EYES: Pupils equal. Conjunctivae normal. HEENT: External nose and ears normal. Oral cavity normal. NECK: JVD not raised. Mass not palpable. RESPIRATORY: Effort normal. Lungs are clear. CARDIOVASCULAR: First and second sounds normal. No edema. ABDOMEN: Soft, nontender. Liver and spleen not palpable. PSYCHIATRY: Alert and oriented x3. Mood and affect normal. EXTREMITIES: Left knee in a dressing. INVESTIGATIONS: No blood work from today. ASSESSMENT: 1. 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 2. Essential hypertension. 3. Primary osteoarthritis. 4. Chronic hepatitis C. 5. Anxiety, depression, not otherwise specified. 6. Obesity; BMI more than 36. 7. Chronic pain. PLAN: The patient was insistent on getting more pain medication. I did explain to him that he will get whatever he takes at home and otherwise Anesthesia/Pain Services may add whatever they think may be appropriate. From my standpoint, I do not think other medication needs to be added. I did tell the nurse to confirm what he was getting prior to coming in and he can resume the same. MMODL / IJN: [id number] /
[2017-08-10] MEDS: oxyCODONE ER 10 MG TAB.ER.12H PO SCH (20:57)
[2017-08-10] MEDS: MIRTAZAPINE 15 MG TAB PO SCH (20:57)
[2017-08-10] MEDS: SENNOSIDES-DOCUSATE SODIUM 1 EACH TAB PO SCH (20:58)
[2017-08-11] MEDS: oxyCODONE-APAP 10-325MG 1 EACH TAB PO PRN ×5 (00:32→20:48)
[2017-08-11] MEDS: MORPHINE SULFATE 4 MG/ML SYRINGE IVP PRN ×3 (03:52→11:36)
[2017-08-11 06:55] LABS: Basophils # (A) 0.1 k/uL (0-0.2); Basophils % (A) 1 %; Eosinophils # (A) 0.7 k/uL (0-0.7); Eosinophils % (A) 7 %; HCT 31.3 % (39.0-53.0); HGB 10.1 gm/dL (13.0-17.5); Lymphocytes % (A) 31 %; MCH 27.5 pg (25.0-35.0); MCHC 32.1 g/dL (31.0-37.0); MCV 85.8 fL (80.0-100.0); Monocytes # (A) 0.7 k/uL (0-1.0); Monocytes % (A) 7 %; Neutrophils # (A) 5.1 k/uL (1.3-7.7); Neutrophils % (A) 52 %; Platelet Count 299 k/uL (150-450); RBC 3.65 m/uL (4.30-5.90); RDW 15.2 % (11.5-15.5); WBC 9.9 k/uL (3.8-10.6)
[2017-08-11] MEDS: SODIUM CHLORIDE 0.9% 1,000 ML IV SCH (07:21)
[2017-08-11] MEDS: NICOTINE 14MG/24HR PATCH TRANSDERM SCH (07:44)
[2017-08-11] MEDS: amLODIPine 10 MG TAB PO SCH (07:44)
[2017-08-11] MEDS: RIVAROXABAN 10 MG TAB PO SCH (07:44)
[2017-08-11] MEDS: cloNIDine HCL 0.2 MG TAB PO SCH ×2 (07:45→20:46)
[2017-08-11] MEDS: FAMOTIDINE 20 MG TAB PO SCH ×2 (07:45→20:46)
[2017-08-11] MEDS: hydrOXYzine PAMOATE 25 MG CAP PO SCH ×2 (07:47→20:47)
[2017-08-11] MEDS: FERROUS SULFATE 325 MG TAB PO SCH (07:48)
[2017-08-11] MEDS: CYCLOBENZAPRINE 10 MG TAB PO PRN ×2 (08:12→22:19)
--- NOTE | 2017-08-11 08:19 | P.PN ---
Subjective Progress Note Date: 08/11/17 This is a 56-year-old male status post stage II revision left total knee arthroplasty. Patient has a history of MRSA infection in the left knee. Patient states the drainage from the incision has appeared to slow down. Patient states his pain is under control. Patient denies any new complaints today. Patient denies any fever/chills, numbness, weakness, tingling, shortness of breath or chest pain. Objective - Vital Signs Vital signs: Vital Signs Temp 99.3 F 08/11/17 07:19 Pulse 113 H 08/11/17 07:19 Resp 18 08/11/17 07:19 BP 132/85 08/11/17 07:19 Pulse Ox 98 08/11/17 07:19 Intake & Output 08/10/17 08/11/17 08/11/17 18:59 06:59 18:59 Intake Total 727.5 2900 Output Total 300 Balance 427.5 2900 Intake: Intake, IV Titration 487.5 700 Amount Sodium Chloride 0.9% 1, 487.5 700 000 ml @ 65 mls/hr IV . [id number] [facility] Rx#:[id number] Oral 240 2200 Output: Urine 300 Other: Voiding Method Urinal Urinal # Voids 3 - Exam Vital signs are stable. Patient is in no acute distress and is alert and oriented 3. Calf is soft and nontender to palpation. Compressive Jonathan wrap in place. There is no drainage noted on the dressing. There is no surrounding erythema or warmth. Patient has full foot and ankle motion without pain or difficulty. Neurovascular status and circulatory status are intact. - Labs CBC & Chem 7: 08/11/17 06:22 Labs: Abnormal Lab Results - Last 24 Hours (Table) 08/11/17 Range/Units 06:22 RBC 3.65 L (4.30-5.90) m/uL Hgb 10.1 L (13.0-17.5) gm/dL Hct 31.3 L (39.0-53.0) % Microbiology - Last 24 Hours (Table) 08/08/17 14:35 Anaerobic Culture - Preliminary Synovial Fluid 08/08/17 14:35 Gram Stain - Preliminary Synovial Fluid Wound Culture - Preliminary 08/08/17 14:30 Anaerobic Culture - Preliminary Synovial Fluid 08/08/17 14:30 Gram Stain - Final Synovial Fluid Wound Culture - Final Assessment and Plan (1) History of MRSA infection Current Visit: Yes Status: Acute Code(s): Z86.14 - PERSONAL HISTORY OF METHICILLIN RESIS STAPH INFECTION SNOMED Code(s): 400887943 (2) Status post revision of total replacement of left knee Current Visit: Yes Status: Acute Code(s): Z96.652 - PRESENCE OF LEFT ARTIFICIAL KNEE JOINT SNOMED Code(s): 418194334 Plan: #1 Continue with routine postoperative care, continue to reinforce and change dressing as necessary. Compressive Jonathan wrap to left knee. #2 Anticoagulation with Xarelto. #3 Physical therapy today , no CPM today. Limit activity to prevent drainage. #4 Appreciate input from medicine. #5 Anticipate discharge to rehab in the future.
[2017-08-11] MEDS: hydrOXYzine PAMOATE 25 MG CAP PO PRN ×2 (10:47→16:45)
[2017-08-11] MEDS ORDERED: HYDROmorphone 2 MG TAB PO PRN ×2 (14:00→14:02)
[2017-08-11] MEDS: HYDROmorphone 4 MG TABLET PO PRN ×3 (14:59→22:19)
[2017-08-11] MEDS: oxyCODONE ER 10 MG TAB.ER.12H PO SCH (20:47)
[2017-08-11] MEDS: MIRTAZAPINE 15 MG TAB PO SCH (20:47)
[2017-08-11] MEDS: SENNOSIDES-DOCUSATE SODIUM 1 EACH TAB PO SCH (20:48)
--- NOTE | 2017-08-11 21:51 | PN ---
PROGRESS NOTE DATE OF SERVICE: August 11, 2017. PRESENTING COMPLAINT: Knee surgery. INTERVAL HISTORY: Patient is status post left knee arthroplasty 2nd time around previously taken now for infection. Pain is controlled. Lying in bed. Tolerating a diet. Did not have a bowel movement. REVIEW OF SYSTEMS: Done for constitutional, cardiovascular, GI, pulmonary, relevant findings as above. CURRENT MEDICATIONS: Reviewed. EXAMINATION: Temperature 98.99, pulse 103, respiratory 18, blood pressure 132/85, pulse ox 98% on room air. General appearance: Sitting up comfortable. Eyes: Pupils equal. Conjunctivae are normal. HEENT: External appearance of nose and ears normal. Oral cavity normal. Neck JVD not raised. Mass not palpable. Respiratory effort normal. Lungs are clear. Cardiovascular 1st and second sounds normal. No edema. ABDOMEN: Soft, nontender. Liver and spleen not palpable. Psychiatry: Alert and oriented x3. Mood and affect normal. Extremities: Left knee in a dressing. INVESTIGATIONS: White count 9.9, hemoglobin 10.1. ASSESSMENT: 1. Left knee total hemiarthroplasty 2nd time, no prior MRSA infection artificial joint. 2. Essential hypertension. 3. Primary osteoarthritis. 4. Chronic hepatitis C. 5. Anxiety, depression not otherwise specified. 6. Obesity; BMI 36. 7. Chronic pain. PLAN: Continue current medication and treatment plan. Care was discussed with the patient. MMODL / IJN: [id number] /
[2017-08-12] MEDS: DIAZEPAM 5 MG TAB PO PRN ×2 (00:28→22:50)
[2017-08-12] MEDS: oxyCODONE-APAP 10-325MG 1 EACH TAB PO PRN ×6 (01:52→23:53)
[2017-08-12] MEDS: HYDROmorphone 4 MG TABLET PO PRN ×6 (02:58→23:27)
[2017-08-12] MEDS: SODIUM CHLORIDE 0.9% 1,000 ML IV SCH ×2 (08:11→12:48)
--- NOTE | 2017-08-12 08:29 | P.PN ---
Subjective Progress Note Date: 08/12/17 This is a 56-year-old male status post stage II revision left total knee arthroplasty. This is postoperative day #4. Patient has a history of MRSA infection in the left knee. Patient states the drainage from the incision continues to diminish. Patient states he was up and walking with physical therapy yesterday. Patient states his pain is under control. Patient denies any new complaints today. Patient denies any fever/chills, numbness, weakness, tingling, shortness of breath or chest pain. Objective - Vital Signs Vital signs: Vital Signs Temp 98.7 F 08/11/17 18:36 Pulse 120 H 08/12/17 00:00 Resp 16 08/12/17 00:00 BP 157/93 08/11/17 18:36 Pulse Ox 97 08/11/17 18:36 Intake & Output 08/11/17 08/12/17 08/12/17 18:59 06:59 18:59 Intake Total 240 1370 Output Total 1300 Balance 240 70 Intake: Oral 240 1370 Output: Urine 1300 Other: Voiding Method Urinal # Voids 1 1 - Exam Vital signs are stable. Patient is in no acute distress and is alert and oriented 3. Calf is soft and nontender to palpation. Incision is clean, dry and intact. Mary are intact. There is minimal drainage on the dressing when taken down. There is no surrounding erythema or warmth. Patient has full foot and ankle motion without pain or difficulty. Neurovascular status and circulatory status are intact. - Labs CBC & Chem 7: 08/11/17 06:22 Labs: Microbiology - Last 24 Hours (Table) 08/08/17 14:35 Gram Stain - Final Synovial Fluid Wound Culture - Final Assessment and Plan (1) History of MRSA infection Current Visit: Yes Status: Acute Code(s): Z86.14 - PERSONAL HISTORY OF METHICILLIN RESIS STAPH INFECTION SNOMED Code(s): 136292044 (2) Status post revision of total replacement of left knee Current Visit: Yes Status: Acute Code(s): Z96.652 - PRESENCE OF LEFT ARTIFICIAL KNEE JOINT SNOMED Code(s): 034171099 Plan: #1 Continue with routine postoperative care, continue to reinforce and change dressing as necessary. Compressive Jonathan wrap to left knee. #2 Anticoagulation with Xarelto. #3 Physical therapy today , no CPM today. #4 Appreciate input from medicine. Final cultures of the left knee are negative. #5 Anticipate discharge to rehab in the future.
[2017-08-12] MEDS: NICOTINE 14MG/24HR PATCH TRANSDERM SCH (08:45)
[2017-08-12] MEDS: RIVAROXABAN 10 MG TAB PO SCH (08:46)
[2017-08-12] MEDS: hydrOXYzine PAMOATE 25 MG CAP PO SCH ×2 (08:46→20:20)
[2017-08-12] MEDS: FAMOTIDINE 20 MG TAB PO SCH ×2 (08:46→20:18)
[2017-08-12] MEDS: cloNIDine HCL 0.2 MG TAB PO SCH ×2 (08:46→20:18)
[2017-08-12] MEDS: amLODIPine 10 MG TAB PO SCH (08:46)
[2017-08-12] MEDS: hydrOXYzine PAMOATE 25 MG CAP PO PRN ×2 (11:56→16:20)
[2017-08-12] MEDS: FERROUS SULFATE 325 MG TAB PO SCH (12:45)
[2017-08-12] MEDS: CYCLOBENZAPRINE 10 MG TAB PO PRN ×2 (15:21→20:18)
--- NOTE | 2017-08-12 17:37 | PN ---
PROGRESS NOTE DATE OF SERVICE: 08/12/2017 PRESENTING COMPLAINT: Knee surgery. INTERVAL HISTORY: Patient is status post left knee arthroplasty. Pain is controlled. Comfortable. Tolerating a diet. No new issues. Had a bowel movement yesterday. REVIEW OF SYSTEMS: Done for constitutional, cardiovascular, GI, pulmonary, musculoskeletal, relevant findings as above. CURRENT MEDICATIONS: Reviewed. EXAMINATION: Temperature 98.4, pulse 108, respiration 16, blood pressure 145/96, pulse ox 97% on room air. GENERAL APPEARANCE: Lying in bed. EYES: Pupils equal. Conjunctivae normal. HEENT: External appearance of nose and ears normal. Oral cavity normal. NECK: JVD not raised. Mass not palpable. RESPIRATORY: Effort normal. Lungs are clear. CARDIOVASCULAR: First and sounds are normal. No edema. ABDOMEN: Soft, nontender. Liver and spleen not palpable. PSYCHIATRY: Alert and oriented x3. Mood and affect normal. EXTREMITIES: Left knee in a dressing. INVESTIGATIONS: No blood work from today. ASSESSMENT: 1. Left total hemiarthroplasty, second time with prior history of methicillin- resistant Staphylococcus aureus infection in the arthroplasty joint that is now removed. 2. Essential hypertension. 3. Primary osteoarthritis. 4. Chronic hepatitis C. 5. Anxiety, depression, not otherwise specified. 6. Obesity; BMI more than 36. 7. Chronic pain. PLAN: Patient is stable. Continue medication and treatment plan. MMODL / IJN: [id number] /
[2017-08-12] MEDS: MIRTAZAPINE 15 MG TAB PO SCH (20:18)
[2017-08-12] MEDS: SENNOSIDES-DOCUSATE SODIUM 1 EACH TAB PO SCH (20:20)
[2017-08-12] MEDS: oxyCODONE ER 10 MG TAB.ER.12H PO SCH (20:40)
[2017-08-13] MEDS: HYDROmorphone 4 MG TABLET PO PRN ×4 (02:08→23:28)
[2017-08-13] MEDS: SODIUM CHLORIDE 0.9% 1,000 ML IV SCH ×2 (02:44→21:40)
[2017-08-13] MEDS: oxyCODONE-APAP 10-325MG 1 EACH TAB PO PRN ×5 (03:43→21:38)
[2017-08-13] MEDS: hydrOXYzine PAMOATE 25 MG CAP PO SCH ×2 (08:29→21:40)
[2017-08-13] MEDS: NICOTINE 14MG/24HR PATCH TRANSDERM SCH (08:30)
[2017-08-13] MEDS: cloNIDine HCL 0.2 MG TAB PO SCH ×2 (08:30→20:29)
[2017-08-13] MEDS: RIVAROXABAN 10 MG TAB PO SCH (08:31)
[2017-08-13] MEDS: amLODIPine 10 MG TAB PO SCH (08:31)
[2017-08-13] MEDS: FAMOTIDINE 20 MG TAB PO SCH ×2 (08:31→20:28)
--- NOTE | 2017-08-13 10:08 | P.PN ---
Subjective Progress Note Date: 08/13/17 Principal diagnosis: Status post stage II revision left total knee This is a 56-year-old male who is status post stage II revision left total knee arthroplasty on 08/08/2017. He is up with physical therapy today. He has no new complaints or concerns today. Vital signs are stable. Objective - Vital Signs Vital signs: Vital Signs Temp 98.6 F 08/13/17 01:25 Pulse 86 08/13/17 01:25 Resp 16 08/13/17 01:25 BP 120/71 08/13/17 01:25 Pulse Ox 95 08/13/17 01:25 Intake & Output 08/12/17 08/13/17 08/13/17 18:59 06:59 18:59 Intake Total 600 Output Total 980 1200 Balance -380 -1200 Weight 106.594 kg Intake: Oral 600 Output: Urine 980 1200 Other: Voiding Method Urinal Urinal # Voids 2 3 # Bowel Movements 1 - Exam This is a 56-year-old male in no acute distress. He is alert and oriented 3. Exam the left knee reveals that his dressing has a very scant amount of drainage. There is no active drainage noted at this time. He has full foot and ankle motion without difficulty or pain. Neurovascular status to the lower extremity is intact. New dressing is applied. - Labs CBC & Chem 7: 08/11/17 06:22 Labs: Microbiology - Last 24 Hours (Table) 08/08/17 14:35 Anaerobic Culture - Final Synovial Fluid 08/08/17 14:30 Anaerobic Culture - Final Synovial Fluid Assessment and Plan (1) History of MRSA infection Current Visit: Yes Status: Acute Code(s): Z86.14 - PERSONAL HISTORY OF METHICILLIN RESIS STAPH INFECTION SNOMED Code(s): 446878394 (2) Status post revision of total replacement of left knee Current Visit: Yes Status: Acute Code(s): Z96.652 - PRESENCE OF LEFT ARTIFICIAL KNEE JOINT SNOMED Code(s): 661525343 Plan: The clinical findings are discussed with the patient. He is to continue with physical therapy today. He is to leave the dressing intact. We're holding his CPM today.
[2017-08-13] MEDS: FERROUS SULFATE 325 MG TAB PO SCH (11:34)
[2017-08-13] MEDS: CYCLOBENZAPRINE 10 MG TAB PO PRN ×2 (12:12→22:36)
[2017-08-13] MEDS ORDERED: FLUTICASONE 50MCG/SPRAY NASAL 16GM EA NOSTRIL PRN (16:37)
[2017-08-13] MEDS: hydrOXYzine PAMOATE 25 MG CAP PO PRN (17:39)
--- NOTE | 2017-08-13 17:39 | PN ---
PROGRESS NOTE DATE OF SERVICE: 08/13/2017 This is a 56-year-old gentleman who was admitted with MRSA joint infection of the left knee as had in rehab previously. The patient had infection of the left total knee arthroplasty and status post stage I revision knee arthroplasty with placement of antibiotic spacer. The patient underwent stage II revision of the left total knee arthroplasty with the patient being closely monitored. Patient has significant issue with pain management. Patient is apparently taking Percocet prior previously, Orthopedics following the patient closely. PAST MEDICAL HISTORY: Reviewed. REVIEW OF SYSTEMS: CARDIOVASCULAR: No angina or palpitation. RESPIRATION: As mentioned earlier. GI: As mentioned earlier. : As noted. NERVOUS SYSTEM: No numbness or weakness. CURRENT MEDICATIONS ARE REVIEWED AND INCLUDE: 1. Norvasc 10 mg daily. 2. Dulcolax 10 mg daily p.r.n. 3. Calcium carbonate 500 mg t.i.d. 4. Klonopin 0.5 mg b.i.d. 5. Catapres 0.2 b.i.d. 6. Flexeril 10 mg q.8. 7. Valium 2.5 mg q.8. 8. Pepcid 20 mg p.o. b.i.d. 9. Iron sulfate 325 mg daily. 10.Dilaudid 1, 2, 4 mg q.3 p.r.n. 11.Vistaril 25 mg q.4 p.r.n. 12.Milk of magnesia 2.4 g daily p.r.n. 13.Remeron 50 mg q.h.s. 14.Narcan 0.2 q.2 p.r.n. 15.Habitrol 14 daily. 16.Zofran 4 mg q.8 p.r.n. 17.OxyContin 30 mg q.h.s. 18.Percocet 10 mg p.o. q.4 p.r.n. 19.Xarelto 10 mg p.o. daily. 20.Senna 2 tablets p.o. q.h.s. 21.Fleets enema. 22.Kenalog local application. PHYSICAL EXAM: Patient is alert, oriented x3. Pulse is 100, blood pressure 140/89, respiration 20, temperature 97.8, pulse ox 94% on room air. HEENT: Conjunctivae normal. NECK: No jugular venous distension. CARDIOVASCULAR: S1, S2, muffled. LUNGS: Breath sounds diminished at the bases, no rhonchi, no crackles. ABDOMEN: Soft, nontender. No mass palpable. LEGS: Status post left knee surgery. NERVOUS SYSTEM: Higher functions as mentioned earlier, moves all 4 limbs, no focal deficits. LYMPHATICS: No lymph node enlargement in the neck or axillae. SKIN: No ulcer, rash or bleeding. LABS: WBC 9.8, hemoglobin is 10.1. ASSESSMENT: 1. Infection of the left total knee arthroplasty, status post stage II revision left total knee arthroplasty. 2. History of essential hypertension. 3. History of chronic hepatitis C. 4. History of degenerative joint disease. 5. Anxiety, depression not otherwise specified. 6. Obesity. 7. Chronic pain syndrome. 8. History of anxiety, depression. RECOMMENDATION AND DISCUSSION: Recommend to continue current management. Continue with the monitoring and symptomatic treatment. Otherwise, at this time I would recommend to continue the pain medication and try Percocet. Repeat labs also recommended tomorrow. Closely monitor with Orthopedic Surgery. Resume the home medication. Medication reconciliation was done. The prognosis guarded because of the multiple complex medical issues and further recommendations to follow. MMODL / IJN: [id number] /
[2017-08-13] MEDS: oxyCODONE ER 10 MG TAB.ER.12H PO SCH (20:28)
[2017-08-13] MEDS: SENNOSIDES-DOCUSATE SODIUM 1 EACH TAB PO SCH (20:28)
[2017-08-13] MEDS: MIRTAZAPINE 15 MG TAB PO SCH (20:28)
[2017-08-14] MEDS: oxyCODONE-APAP 10-325MG 1 EACH TAB PO PRN ×6 (01:10→21:38)
[2017-08-14 07:22] LABS: Basophils % (A) 0 %; Eosinophils # (A) 0.7 k/uL (0-0.7); Eosinophils % (A) 8 %; HCT 29.2 % (39.0-53.0); HGB 9.4 gm/dL (13.0-17.5); Lymphocytes # (A) 2.4 k/uL (1.0-4.8); Lymphocytes % (A) 27 %; MCHC 32.1 g/dL (31.0-37.0); Mean Platelet Volume 7.6; Monocytes # (A) 0.8 k/uL (0-1.0); Monocytes % (A) 9 %; Neutrophils # (A) 4.8 k/uL (1.3-7.7); Neutrophils % (A) 54 %; Platelet Count 363 k/uL (150-450); RBC 3.47 m/uL (4.30-5.90); WBC 8.9 k/uL (3.8-10.6)
[2017-08-14 07:31] LABS: Anion Gap 8 mmol/L; Blood Urea Nitrogen 14 mg/dL (9-20); Calcium 8.9 mg/dL (8.4-10.2); Carbon Dioxide 30 mmol/L (22-30); Chloride 97 mmol/L (98-107); Glucose 133 mg/dL (74-99); Potassium 4.1 mmol/L (3.5-5.1); Sodium 135 mmol/L (137-145)
[2017-08-14] MEDS: NICOTINE 14MG/24HR PATCH TRANSDERM SCH (09:44)
[2017-08-14] MEDS: cloNIDine HCL 0.2 MG TAB PO SCH ×2 (09:45→20:09)
[2017-08-14] MEDS: hydrOXYzine PAMOATE 25 MG CAP PO SCH ×2 (09:45→21:38)
[2017-08-14] MEDS: HYDROCHLOROTHIAZIDE 25 MG TAB PO SCH (09:45)
[2017-08-14] MEDS: amLODIPine 10 MG TAB PO SCH (09:45)
[2017-08-14] MEDS: FAMOTIDINE 20 MG TAB PO SCH ×2 (09:45→20:09)
--- NOTE | 2017-08-14 09:52 | P.PN ---
Subjective Progress Note Date: 08/14/17 Principal diagnosis: Status post stage II revision left total knee This is a 56-year-old male who is status post stage II revision left total knee arthroplasty on 08/08/2017. He has been up with physical therapy today. He has no new complaints or concerns today. Vital signs are stable. Objective - Vital Signs Vital signs: Vital Signs Temp 98.7 F 08/14/17 02:00 Pulse 108 H 08/14/17 02:00 Resp 16 08/14/17 02:00 BP 130/76 08/14/17 02:00 Pulse Ox 97 08/13/17 19:30 Intake & Output 08/13/17 08/14/17 08/14/17 18:59 06:59 18:59 Intake Total 1920 Output Total 850 400 Balance 1070 -400 Weight 106.594 kg Intake: Oral 1920 Output: Urine 850 400 Other: Voiding Method Urinal Urinal # Voids 2 # Bowel Movements 1 - Exam This is a 56-year-old male in no acute distress. He is alert and oriented 3. Exam the left knee reveals that his dressing has no drainage. There is no active drainage noted at this time. He has full foot and ankle motion without difficulty or pain. He is able to lift the left leg off the bed independently. Neurovascular status to the lower extremity is intact. New dressing is applied. - Labs CBC & Chem 7: 08/14/17 06:58 08/14/17 06:58 Labs: Abnormal Lab Results - Last 24 Hours (Table) 08/14/17 08/14/17 Range/Units 06:58 06:58 RBC 3.47 L (4.30-5.90) m/uL Hgb 9.4 L (13.0-17.5) gm/dL Hct 29.2 L (39.0-53.0) % RDW 16.0 H (11.5-15.5) % Sodium 135 L (137-145) mmol/L Chloride 97 L (98-107) mmol/L Glucose 133 H (74-99) mg/dL Assessment and Plan (1) History of MRSA infection Current Visit: Yes Status: Acute Code(s): Z86.14 - PERSONAL HISTORY OF METHICILLIN RESIS STAPH INFECTION SNOMED Code(s): 984947251 (2) Status post revision of total replacement of left knee Current Visit: Yes Status: Acute Code(s): Z96.652 - PRESENCE OF LEFT ARTIFICIAL KNEE JOINT SNOMED Code(s): 805267157 Plan: The clinical findings are discussed with the patient. He is to continue with physical therapy today. He is to leave the dressing intact. We're holding his CPM today.
[2017-08-14] MEDS: RIVAROXABAN 10 MG TAB PO SCH (11:44)
[2017-08-14] MEDS: FERROUS SULFATE 325 MG TAB PO SCH (11:44)
--- NOTE | 2017-08-14 17:04 | PN ---
PROGRESS NOTE DATE OF SERVICE: 08/14/2017. INTERVAL HISTORY: This 56-year-old gentleman who was admitted with infection of the left total knee arthroplasty underwent staged revision. The pain is better controlled at this time. ECF rehab is being planned. No chest pain. No palpitations. No fever. PHYSICAL EXAM: Alert and oriented x3. Pulse 90. Blood pressure is 130/80, respiration 20, temp 98 degrees, pulse ox 98% on room air. HEENT: Conjunctivae normal. Oral mucosa moist. Neck is no jugular venous distention. No thyroid enlargement. No carotid bruit. Cardiovascular system: S1, S2 muffled. No S3, no S4. Respiratory: Breath sounds diminished in the bases. No rhonchi. No crackles. ABDOMEN: Soft, nontender. Legs: Status post knee surgery. Nervous system: No focal deficits. LABS: WBC 8.2, hemoglobin 9.4, sodium 135. ASSESSMENT: 1. Infection of the left total knee arthroplasty status post stage II revision left total knee arthroplasty. 2. History of essential hypertension. 3. Chronic hepatitis C. 4. History of degenerative joint disease. 5. Anxiety/depression, not otherwise specified. 6. History of anemia as expected. 7. Hyponatremia. 8. Obesity. 9. Chronic pain syndrome. 10.History of anxiety/depression. RECOMMENDATIONS AND DISCUSSION: Recommend to continue current medications, management. Symptomatic treatment. Closely follow with Orthopedics. PT/OT evaluation. Continue the pain management. Further recommendations to follow. MMODL / IJN: [id number] /
[2017-08-14] MEDS: hydrOXYzine PAMOATE 25 MG CAP PO PRN (17:49)
[2017-08-14] MEDS: HYDROmorphone 4 MG TABLET PO PRN ×2 (19:18→23:05)
[2017-08-14] MEDS: oxyCODONE ER 10 MG TAB.ER.12H PO SCH (20:08)
[2017-08-14] MEDS: MIRTAZAPINE 15 MG TAB PO SCH (20:09)
[2017-08-14] MEDS: clonazePAM 0.5 MG TAB PO PRN (20:09)
[2017-08-14] MEDS: SODIUM CHLORIDE 0.9% 1,000 ML IV SCH (21:32)
[2017-08-14] MEDS: SENNOSIDES-DOCUSATE SODIUM 1 EACH TAB PO SCH (21:39)
[2017-08-14] MEDS: CYCLOBENZAPRINE 10 MG TAB PO PRN (23:04)
[2017-08-15] MEDS: DIAZEPAM 5 MG TAB PO PRN (00:41)
[2017-08-15] MEDS: oxyCODONE-APAP 10-325MG 1 EACH TAB PO PRN ×4 (01:18→14:05)
[2017-08-15] MEDS: SODIUM CHLORIDE 0.9% 1,000 ML IV SCH (02:20)
[2017-08-15] MEDS: HYDROmorphone 4 MG TABLET PO PRN (07:52)
[2017-08-15 07:56] VITALS: BP 132/74; PULSE 96; RESP 14; TEMP 98
[2017-08-15] MEDS: FAMOTIDINE 20 MG TAB PO SCH (07:57)
[2017-08-15] MEDS: amLODIPine 10 MG TAB PO SCH (07:57)
[2017-08-15] MEDS: cloNIDine HCL 0.2 MG TAB PO SCH (07:57)
[2017-08-15] MEDS: RIVAROXABAN 10 MG TAB PO SCH (07:58)
[2017-08-15] MEDS: HYDROCHLOROTHIAZIDE 25 MG TAB PO SCH (07:58)
[2017-08-15] MEDS: NICOTINE 14MG/24HR PATCH TRANSDERM SCH (07:58)
--- NOTE | 2017-08-15 09:09 | P.DS ---
Providers Date of admission: 08/08/17 10:04 Expected date of discharge: 08/15/17 Attending physician: Mitesh Le Consults: 08/08/17 14:53 Consult Physician Routine Consulting Provider: Anil Cintron Consult Reason/Comments: medical management Do you want consulting provider notified?: Yes Primary care physician: Edison Mascorro - Discharge Diagnosis(es) (1) History of MRSA infection Current Visit: Yes Status: Acute (2) Status post revision of total replacement of left knee Current Visit: Yes Status: Acute Hospital Course: This is a 56-year-old male with a history of MRSA infection in the left knee after revision left total knee arthroplasty in the fall of 2016. Patient then underwent a stage I revision left total knee arthroplasty with placement of antibiotic spacer. Patient received IV antibiotics and was followed by infectious disease. The patient presents for evaluation. Patient was cleared by infectious disease once the infection in the left knee was felt to be successfully treated. After discussion and consideration patient elects to proceed with stage II revision left total knee arthroplasty. The patient is seen preoperatively by Dr. Le and is medically cleared for surgery by the patient's primary care physician. Patient is admitted to [facility] on 08/08/2017 for total knee arthroplasty. The procedures performed without complication or sequelae. The patient is doing well postoperatively. Labs and vital signs are stable on day of discharge. Cultures are negative. Nursing staff does report that the patient continues to pick at his incision. Incision is covered with an optifoam silver dressing and rodrigo wrap before discharge. On day of discharge patient's knee incision is healing well. There is minimal erythema. Mary are intact. There is no drainage noted at this time. There is minimal soft tissue swelling to the knee. Patient has full foot and ankle motion without difficulty or pain. Neurovascular status to the left lower extremity is intact. Patient is discharged to rehab in good condition. Please see med rec for accurate list of home medications. Plan - Discharge Summary Discharge Rx Participant: No New Discharge Prescriptions: New oxyCODONE HCL [OxyCONTIN] 30 mg PO HS #30 tab oxyCODONE-APAP 10-325MG [Percocet 10-325 mg] 1 tab PO Q6HR PRN #30 tab PRN Reason: Pain Rivaroxaban [Xarelto] 10 mg PO DAILY #30 tab Sennosides [Senokot] 1 tab PO BID #60 tablet No Action Mirtazapine [Remeron] 15 mg PO HS amLODIPine BESYLATE [Norvasc] 10 mg PO DAILY hydrOXYzine PAMOATE [Vistaril] 25 mg PO BID cloNIDine HCL [Catapres] 0.2 mg PO BID Fluticasone Nasal [place] [Flonase Nasal [place]] 1 spray EA NOSTRIL DAILY PRN PRN Reason: Allergy Symptoms Cyclobenzaprine [Flexeril] 10 mg PO Q8H PRN PRN Reason: MUSCLE SPASM /BACK PAIN Famotidine [Pepcid] 20 mg PO BID tab Calcium Carbonate [Tums] 500 mg PO QID PRN chew PRN Reason: Heartburn Hydrochlorothiazide [Hydrodiuril] 25 mg PO DAILY oxyCODONE HCL [OxyCONTIN] 30 mg PO HS oxyCODONE-APAP 10-325MG [Percocet 10-325 mg] 1 tab PO Q6HR PRN #45 tab PRN Reason: Pain clonazePAM [KlonoPIN] 0.5 mg PO BID PRN #30 tablet PRN Reason: Pain Triamcinolone 0.1% Lotion [Kenalog 0.1% Lotion] 1 applic TOPICAL BID PRN PRN Reason: Skin Irritation Nicotine 7Mg/24Hr Patch [Habitrol 7Mg/24Hr Patch] 1 patch TRANSDERM DAILY Naproxen [Naprosyn] 500 mg PO Q12HR PRN PRN Reason: Pain Ferrous Sulfate [Feosol] 325 mg PO DAILY Sennosides-Docusate Sodium [Senokot-S] 2 tab PO HS Discharge Medication List Mirtazapine [Remeron] 15 mg PO HS 01/11/17 [History] amLODIPine BESYLATE [Norvasc] 10 mg PO DAILY 01/11/17 [History] cloNIDine HCL [Catapres] 0.2 mg PO BID 01/11/17 [History] hydrOXYzine PAMOATE [Vistaril] 25 mg PO BID 01/11/17 [History] Cyclobenzaprine [Flexeril] 10 mg PO Q8H PRN 01/12/17 [History] Fluticasone Nasal [place] [Flonase Nasal [place]] 1 spray EA NOSTRIL DAILY PRN 01/12 [History] Famotidine [Pepcid] 20 mg PO BID tab 05/03/17 [Rx] Calcium Carbonate [Tums] 500 mg PO QID PRN chew 05/04/17 [Rx] Hydrochlorothiazide [Hydrodiuril] 25 mg PO DAILY 05/08/17 [History] oxyCODONE HCL [OxyCONTIN] 30 mg PO HS 05/09/17 [History] clonazePAM [KlonoPIN] 0.5 mg PO BID PRN #30 tablet 05/13/17 [Rx] oxyCODONE-APAP 10-325MG [Percocet 10-325 mg] 1 tab PO Q6HR PRN #45 tab 05/13/17 [Rx] Ferrous Sulfate [Feosol] 325 mg PO DAILY 08/04/17 [History] Naproxen [Naprosyn] 500 mg PO Q12HR PRN 08/04/17 [History] Nicotine 7Mg/24Hr Patch [Habitrol 7Mg/24Hr Patch] 1 patch TRANSDERM DAILY [History] Triamcinolone 0.1% Lotion [Kenalog 0.1% Lotion] 1 applic TOPICAL BID PRN [History] Sennosides-Docusate Sodium [Senokot-S] 2 tab PO HS 08/08/17 [History] Rivaroxaban [Xarelto] 10 mg PO DAILY #30 tab 08/15/17 [Rx] Sennosides [Senokot] 1 tab PO BID #60 tablet 08/15/17 [Rx] oxyCODONE HCL [OxyCONTIN] 30 mg PO HS #30 tab 08/15/17 [Rx] oxyCODONE-APAP 10-325MG [Percocet 10-325 mg] 1 tab PO Q6HR PRN #30 tab 08/15/17 [Rx] Follow up Appointment(s)/Referral(s): Mitesh Le DO [Doctor of Osteopathic Medicine] - 08/26/17 10:20 am Ambulatory/Diagnostic Orders: Continuous Passive Motion (CPM) Machine [DME.[email or web address]] Time Frame: 3 Weeks, Location : Determined By Patient Activity/Diet/Wound Care/Special Instructions: Weightbearing as tolerated with a walker CPM 5-6h daily as tolerated. If incision begins to drain, discontinue CPM. Leave dressing intact. May be removed by home care nurse in 7 days, 08/22/2017. [place] may be removed in 7-10 days. May shower with dressing on. [facility] with questions or concerns [phone] Discharge Disposition: TRANSFER TO SNF/ECF
[2017-08-15] MEDS: hydrOXYzine PAMOATE 25 MG CAP PO SCH (09:30)
[2017-08-15] MEDS: hydrOXYzine PAMOATE 25 MG CAP PO PRN (14:25)
== END 2017-08-15 15:04 | DRG 467 ==
LOC: 2ORMAIN 10:04 → 3SUR 14:43
PROVIDERS: ADMIT Orthopaedic Surgery; ATTEND Orthopaedic Surgery
PROC: 0SRD069 Replacement of Left Knee Joint with Oxidized Zirconium on Polyethylene Synthetic Substitute, Cemented, Open Approach (ICD-10-PCS; principal; 2017-08-08 12:30)
PROC: 0SPD08Z Removal of Spacer from Left Knee Joint, Open Approach (ICD-10-PCS; principal; 2017-08-08 12:30)
DX: Z47.33 Aftercare following explantation of knee joint prosthesis (principal); E87.1 Hypo-osmolality and hyponatremia; B18.2 Chronic viral hepatitis C; E66.9 Obesity, unspecified; F32.9 Major depressive disorder, single episode, unspecified; F41.9 Anxiety disorder, unspecified; G89.4 Chronic pain syndrome; I10 Essential (primary) hypertension; M19.91 Primary osteoarthritis, unspecified site; Z79.899 Other long term (current) drug therapy; Z83.3 Family history of diabetes mellitus; Z86.14 Personal history of Methicillin resistant Staphylococcus aureus infection; Z87.891 Personal history of nicotine dependence
CPT/HCPCS: 80048; 85025; 87070; 87075; 87205; 88305; 88331

== ENCOUNTER → 2018-08-25 | Outpatient (CLI) | payer MEDICARE, OTHER ==
[2018-08-25 13:58] LABS: Basophils # (A) 0.1 k/uL (0-0.2); Basophils % (A) 1 %; Eosinophils # (A) 0.4 k/uL (0-0.7); Eosinophils % (A) 6 %; HCT 52.6 % (39.0-53.0); HGB 16.9 gm/dL (13.0-17.5); Lymphocytes # (A) 2.7 k/uL (1.0-4.8); Lymphocytes % (A) 35 %; MCH 29.2 pg (25.0-35.0); MCHC 32.1 g/dL (31.0-37.0); MCV 91.2 fL (80.0-100.0); Mean Platelet Volume 6.6; Monocytes # (A) 0.4 k/uL (0-1.0); Monocytes % (A) 5 %; Neutrophils % (A) 51 %; Platelet Count 274 k/uL (150-450); RBC 5.77 m/uL (4.30-5.90); RDW 13.8 % (11.5-15.5); WBC 7.7 k/uL (3.8-10.6)
[2018-08-25 18:26] LABS: Albumin 4.5 g/dL (3.80-4.90); Albumin/Globulin Ratio 1.5 (1.60-3.17); Anion Gap 7.1 mmol/L (4.00-12.00); Calcium 9.4 mg/dL (8.7-10.3); Carbon Dioxide 29.9 mmol/L (21.6-31.8); Potassium 3.6 mmol/L (3.5-5.5); Total Bilirubin 0.5 mg/dL (0.2-1.2); Total Protein 7.5 g/dL (6.2-8.2)
[2018-08-28 09:47] LABS: Hepatits C Virus RNA DETECTED (Not detected); Hepatits C Virus RNA, Quant 65 IU/mL (<12); LOG HCV IU/mL 1.81 (<1.08)
== END | disposition home or self-care (01) ==
LOC: LABWHC1 13:28
PROVIDERS: ATTEND Internal Medicine
DX: B18.2 Chronic viral hepatitis C (principal)
CPT/HCPCS: 36415; 80053; 85025; 87522

== ENCOUNTER 2023-07-02 12:01 | Observation (INO) | payer MEDICARE, OTHER ==
--- NOTE | 2023-07-02 13:32 | ED ---
General Adult HPI - General Chief complaint: Weakness Stated complaint: weakness Time Seen by Provider: 07/02/23 12:42 Source: patient, RN notes reviewed, old records reviewed Mode of arrival: ambulatory Limitations: no limitations - History of Present Illness Initial comments: Patient is a 62-year-old male who presents emergency Department complaining of continued weakness. Also is complaining of debility. Ophthalmologic within the last few days, and felt he was strong enough to take care of himself at home however he does not believe so. He culminated in a fall from the edge of his bed today landing on his bottom. Did not hit his head or lose consciousness. Is not on blood thinners. Has been evaluating with a walker. Originally was [place] abdominal [place]. He has no support at home. Does not believe he can take care of himself and is asking for reevaluation for possible placement. Only acute complaint Is some mild diarrhea with no blood. - Related Data Home Medications Medication Instructions Recorded Confirmed Mirtazapine [Remeron] 15 mg PO HS 01/11/17 08/08/17 amLODIPine BESYLATE [Norvasc] 10 mg PO DAILY 01/11/17 08/08/17 cloNIDine HCL [Catapres] 0.2 mg PO BID 01/11/17 08/08/17 hydrOXYzine pamoate [Vistaril] 25 mg PO BID 01/11/17 08/08/17 Cyclobenzaprine [Flexeril] 10 mg PO Q8H PRN 01/12/17 08/08/17 Fluticasone Nasal [place] [Flonase 1 spray EA NOSTRIL DAILY PRN 01/12/17 08/08/17 Nasal [place]] hydroCHLOROthiazide [Hydrodiuril] 25 mg PO DAILY 05/08/17 08/08/17 oxyCODONE HCL [OxyCONTIN] 30 mg PO HS 05/09/17 08/08/17 Ferrous Sulfate [Iron (65 MG 325 mg PO DAILY 08/04/17 08/08/17 Elemental)] Naproxen [Naprosyn] 500 mg PO Q12HR PRN 08/04/17 08/08/17 Triamcinolone 0.1% Lotion [Kenalog 1 applic TOPICAL BID PRN 08/04/17 08/08/17 0.1% Lotion] Sennosides-Docusate Sodium 2 tab PO HS 08/08/17 08/08/17 [Senokot-S] Previous Rx's Medication Instructions Recorded Famotidine [Pepcid] 20 mg PO BID tab 05/03/17 Calcium Carbonate [Tums] 500 mg PO QID PRN chew 05/04/17 oxyCODONE-APAP 10-325MG [Percocet 1 tab PO Q6HR PRN #45 tab 05/13/17 10-325 mg] Nicotine 14Mg/24Hr Patch [Habitrol] 1 patch TRANSDERM DAILY patch 08/15/17 Rivaroxaban [Xarelto] 10 mg PO DAILY #30 tab 08/15/17 Sennosides [Senokot] 1 tab PO BID #60 tablet 08/15/17 clonazePAM [KlonoPIN] 0.5 mg PO BID PRN #6 tablet 08/15/17 oxyCODONE HCL [OxyCONTIN] 30 mg PO HS #30 tab 08/15/17 oxyCODONE-APAP 10-325MG [Percocet 1 tab PO Q4-6H PRN #30 tab 08/15/17 10-325 mg] Allergies Allergy/AdvReac Type Severity Reaction Status Date / Time No Known Allergies Allergy Verified 08/08/17 15:44 Review of Systems ROS Statement: Those systems with pertinent positive or pertinent negative responses have been documented in the HPI. Review of Systems: CONST: Denies fever EYES: Denies blurry vision ENT: Denies nasal congestion C/V: Denies Chest pain RESP: Denies shortness of breath GI: Denies abdominal pain : Denies dysuria SKIN: Denies rash. MSK: Denies joint pain. NEURO: Denies headache ROS Other: All systems not noted in ROS Statement are negative. Past Medical History Past Medical History: Hypertension, Liver Disease, Osteoarthritis (OA) Additional Past Medical History / Comment(s): 02/04/17 cellulitis L leg, HEPATITIS C treated with interferon but returned-pt now self treating with HENRY 52, arthritis bilateral knees and in the past affected his thumbs, head injury in 1986 with blood clot on brain with surgery, RETAIN FLUID IN LEGS, low back pain with L sided sciatica, sinusitis. History of Any Multi-Drug Resistant Organisms: MRSA Date of last positivie culture/infection: 11/17/17 MDRO Source:: KNEE,BLOOD Past Surgical History: Orthopedic Surgery Additional Past Surgical History / Comment(s): RIGHT KNEE ARTHROSCOPIC , TOTAL RIGHT KNEE, TOTAL LEFT KNEE in 2012, revision of meniscus in June 2013, left total knee revision in January 2017, BLOOD CLOT REMOVED FROM BRAIN, colonoscopy. Past Anesthesia/Blood Transfusion Reactions: No Reported Reaction Past Psychological History: Anxiety, Depression Past Alcohol Use History: None Reported Past Drug Use History: None Reported - Past Family History Mother Family Medical History: Diabetes Mellitus Additional Family Medical History / Comment(s): Mother is 90 yrs old. Father Family Medical History: Diabetes Mellitus Additional Family Medical History / Comment(s): Father is . General Exam - General Exam Comments Initial Comments: General: Appears in no acute distress. HEAD: Normal with no signs of head trauma. EYES: PERRLA, EOMI, conjunctiva normal, no discharge. ENT: Hearing grossly intact, normal oropharynx. RESPIRATORY: Clear breath sounds bilaterally. No wheezes, rales, or rhonchi. C/V: Regular rate and rhythm. S1 and S2 auscultated, no edema, peripheral pulses 2+ and intact throughout ABD: Abd is soft, nontender, nondistended EXT: Normal range of motion, no obvious deformity SKIN: No rashes or lesions observed on exposed skin. NEURO: Alert and oriented x 4. Cranial nerves II-XII intact. No focal sensory or strength deficits. Limitations: no limitations Course Vital Signs 07/02/23 07/02/23 07/02/23 12:22 14:12 15:17 Temperature 98.3 F Pulse Rate 76 69 75 Respiratory 16 16 16 Rate Blood Pressure 171/112 178/140 187/119 O2 Sat by Pulse 98 99 99 Oximetry Medical Decision Making - Medical Decision Making Was pt. sent in by a medical professional or institution (, PA, STEAM PRESSER, urgent care, hospital, or snf...) When possible be specific @ -No Did you speak to anyone other than the patient for history (EMS, parent, family, police, friend...)? What history was obtained from this source @ -No Did you review nursing and triage notes (agree or disagree)? Why? @ -I reviewed and agree with nursing and triage notes Were old charts reviewed (outside hosp., previous admission, EMS record, old EKG, old radiological studies, urgent care reports/EKG's, snf records)? Report findings @ -Old charts reviewed Differential Diagnosis (chest pain, altered mental status, abdominal pain women, abdominal pain men, vaginal bleeding, weakness, fever, dyspnea, syncope, headache, dizziness, GI bleed, back pain, seizure, CVA, palpatations, mental health, musculoskeletal)? @ -Debility, fall, dehydration. This was is not all inclusive. EKG interpreted by me (3pts min.). @ -As above X-rays interpreted by me (1pt min.). @ -Pelvis x-ray shows no tailbone injury. Radiologist shows possible remote left hip injury. However clinically, patient has no pain there and no history of hip injury. No concern at this time. CT interpreted by me (1pt min.). @ -None done U/S interpreted by me (1pt. min.). @ -None done What testing was considered but not performed or refused? (CT, X-rays, U/S, labs)? Why? @ -None What meds were considered but not given or refused? Why? @ -None Did you discuss the management of the patient with other professionals (professionals i.e. , PA, STEAM PRESSER, lab, RT, psych nurse, social science manager, certified nuclear medicine technologist, teacher, information management officer, case management rn)? Give summary @ -Discussed with PCP Dr. Mccormack who accepted the admission was in agreement with the plan. Was smoking cessation discussed for >3mins.? @ -No Was critical care preformed (if so, how long)? @ -No Were there social determinants of health that impacted care today? How? (Homelessness, low income, unemployed, alcoholism, drug addiction, transportation, low edu. Level, literacy, decrease access to med. care, custodial, rehab)? @ -No Was there de-escalation of care discussed even if they declined (Discuss DNR or withdrawal of care, Hospice)? DNR status @ -No What co-morbidities impacted this encounter? (DM, HTN, Smoking, COPD, CAD, Cancer, CVA, ARF, Chemo, Hep., AIDS, mental health diagnosis, sleep apnea, morbid obesity)? @ -None Was patient admitted / discharged? Hospital course, mention meds given and route, prescriptions, significant lab abnormalities, going to OR and other pertinent info. @ -Patient is a 62-year-old male who presents emergency Department asking to be readmitted to the nursing facility as he states he has increased ability at home is unable to take care of himself. Recently was discharged from such facility and thought he could take care of himself however he has no help at home, and is having issues with that since discharge. Did have a minor fall from a sitting position and landed on his bottom. We will obtain a pelvis x-ray as well as basic labs and screening EKG. Patient was in agreement this plan. Vital signs are within acceptable limits. EKG shows no signs of acute ischemia.Imaging unremarkable. Patient's laboratory studies remarkable for a mild hypokalemia at 3.3 which is replenished. Remainder of labs unremarkable. Radiology is concerned that the patient may have a remote left hip injury the patient has no acute symptoms. No concern at this time. Discussed with the patient. He will be evaluated for placement. He'll be admitted at this time for debility, weakness. He was in agreement this plan. I discussed the case with the admitting physician Dr. Mccormack who accepted the patient. Undiagnosed new problem with uncertain prognosis? @ -No Drug Therapy requiring intensive monitoring for toxicity (Heparin, Nitro, Insulin, Cardizem)? @ -No Were any procedures done? @ -No Diagnosis/symptom? @ -Hypokalemia, weakness, debility Acute, or Chronic, or Acute on Chronic? @ -Acute Uncomplicated (without systemic symptoms) or Complicated (systemic symptoms)? @ -Complicated Side effects of treatment? @ -none Exacerbation, Progression, or Severe Exacerbation] @ -no Poses a threat to life or bodily function? @ -Yes - Lab Data Result diagrams: 07/02/23 13:46 07/02/23 13:46 Lab Results 07/02/23 07/02/23 07/02/23 Range/Units 13:46 13:46 13:46 WBC 11.6 H (3.8-10.6) k/uL RBC 4.69 (4.30-5.90) m/uL Hgb 13.6 (13.0-17.5) gm/dL Hct 41.0 (39.0-53.0) % MCV 87.5 (80.0-100.0) fL MCH 29.1 (25.0-35.0) pg MCHC 33.3 (31.0-37.0) g/dL RDW 14.2 (11.5-15.5) % Plt Count 384 (150-450) k/uL MPV 7.1 Neutrophils % 76 % Lymphocytes % 15 % Monocytes % 4 % Eosinophils % 3 % Basophils % 1 % Neutrophils # 8.8 H (1.3-7.7) k/uL Lymphocytes # 1.8 (1.0-4.8) k/uL Monocytes # 0.4 (0-1.0) k/uL Eosinophils # 0.4 (0-0.7) k/uL Basophils # 0.1 (0-0.2) k/uL Sodium 141 (137-145) mmol/L Potassium 3.3 L (3.5-5.1) mmol/L Chloride 115 H (98-107) mmol/L Carbon Dioxide 18 L (22-30) mmol/L Anion Gap 8 mmol/L BUN 22 H (9-20) mg/dL Creatinine 1.30 H (0.66-1.25) mg/dL Est GFR (CKD-EPI)AfAm 67 (>60 ml/min/1.73 sqM) Est GFR (CKD-EPI)NonAf 58 (>60 ml/min/1.73 sqM) Glucose 80 (74-99) mg/dL Plasma Lactic Acid Chemo (0.7-2.0) mmol/L Calcium 7.3 L (8.4-10.2) mg/dL Magnesium 1.8 (1.6-2.3) mg/dL Total Bilirubin 0.6 (0.2-1.3) mg/dL AST 20 (17-59) U/L ALT 14 (4-49) U/L Alkaline Phosphatase 100 (38-126) U/L Total Protein 6.3 (6.3-8.2) g/dL Albumin 3.3 L (3.5-5.0) g/dL Urine Color Light Yellow Urine Appearance Clear (Clear) Urine pH 6.0 (5.0-8.0) Ur Specific [place] 1.012 (1.001-1.035) Urine Protein 2+ H (Negative) Urine Glucose (UA) Negative (Negative) Urine Ketones Negative (Negative) Urine Blood Negative (Negative) Urine Nitrite Negative (Negative) Urine Bilirubin Negative (Negative) Urine Urobilinogen <2.0 (<2.0) mg/dL Ur Leukocyte Esterase Negative (Negative) Urine WBC 1 (0-5) /hpf Ur Squamous Epith Cells <1 (0-4) /hpf Influenza Type A (PCR) (Not Detectd) Influenza Type B (PCR) (Not Detectd) RSV (PCR) (Not Detectd) SARS-CoV-2 (PCR) (Not Detectd) 07/02/23 07/02/23 Range/Units 13:46 13:46 WBC (3.8-10.6) k/uL RBC (4.30-5.90) m/uL Hgb (13.0-17.5) gm/dL Hct (39.0-53.0) % MCV (80.0-100.0) fL MCH (25.0-35.0) pg MCHC (31.0-37.0) g/dL RDW (11.5-15.5) % Plt Count (150-450) k/uL MPV Neutrophils % % Lymphocytes % % Monocytes % % Eosinophils % % Basophils % % Neutrophils # (1.3-7.7) k/uL Lymphocytes # (1.0-4.8) k/uL Monocytes # (0-1.0) k/uL Eosinophils # (0-0.7) k/uL Basophils # (0-0.2) k/uL Sodium (137-145) mmol/L Potassium (3.5-5.1) mmol/L Chloride (98-107) mmol/L Carbon Dioxide (22-30) mmol/L Anion Gap mmol/L BUN (9-20) mg/dL Creatinine (0.66-1.25) mg/dL Est GFR (CKD-EPI)AfAm (>60 ml/min/1.73 sqM) Est GFR (CKD-EPI)NonAf (>60 ml/min/1.73 sqM) Glucose (74-99) mg/dL Plasma Lactic Acid Chemo 1.0 (0.7-2.0) mmol/L Calcium (8.4-10.2) mg/dL Magnesium (1.6-2.3) mg/dL Total Bilirubin (0.2-1.3) mg/dL AST (17-59) U/L ALT (4-49) U/L Alkaline Phosphatase (38-126) U/L Total Protein (6.3-8.2) g/dL Albumin (3.5-5.0) g/dL Urine Color Urine Appearance (Clear) Urine pH (5.0-8.0) Ur Specific [place] (1.001-1.035) Urine Protein (Negative) Urine Glucose (UA) (Negative) Urine Ketones (Negative) Urine Blood (Negative) Urine Nitrite (Negative) Urine Bilirubin (Negative) Urine Urobilinogen (<2.0) mg/dL Ur Leukocyte Esterase (Negative) Urine WBC (0-5) /hpf Ur Squamous Epith Cells (0-4) /hpf Influenza Type A (PCR) Not Detected (Not Detectd) Influenza Type B (PCR) Not Detected (Not Detectd) RSV (PCR) Not Detected (Not Detectd) SARS-CoV-2 (PCR) Not Detected (Not Detectd) - EKG Data -: EKG Interpreted by Me EKG Comments: 12-lead Electrocardiogram Interpretation Note EKG was reviewed and interpreted by myself. 12-lead ECG performed at 1256 is interpreted by me as revealing normal sinus rhythm at a rate of 67 beats per minute. [place] is normal. NV interval is 161 ms, QRS duration is 106 ms, QTc is 393 ms.. There were no ST or T wave abnormalities to suggest myocardial ischemia or injury. R wave progression across the precordium was satisfactory. By my interpretation this EKG is non-diagnostic for acute ischemia. Disposition Clinical Impression: Weakness, Debility, Hypokalemia Disposition: ADMITTED IP TO THIS [facility] Condition: Stable Referrals: None,Stated [REFERRING] - 1-2 days Time of Disposition: 15:11
[2023-07-02 14:17] LABS: Appearance,Urine Clear (Clear); Bilirubin,Urine Negative (Negative); Blood,Urine Negative (Negative); Color,Urine Light Yellow; Glucose,Urine (UA) Negative (Negative); Ketones,Urine Negative (Negative); Leukocyte Esterase,Urine Negative (Negative); Nitrite,Urine Negative (Negative); Protein,Urine 2+ (Negative); Specific Gravity,Urine 1.012 (1.001-1.035); Squamous Epithelial Cell,Urine <1 /hpf (0-4); Urobilinogen,Urine <2.0 mg/dL (<2.0); WBC,Urine 1 /hpf (0-5)
--- NOTE | 2023-07-02 14:18 | XR ---
EXAMINATION TYPE: XR pelvis AP view DATE OF EXAM: 07/02/2023 CLINICAL HISTORY: pain TECHNIQUE: Single view the pelvis is submitted. FINDINGS: No evidence for fracture, dislocation or bony lesion. Foreshortening of the left femoral n fredo which could be related to remote fracture however dedicated views of the left hip are recommended . Joint spaces are well-preserved. SI joints appear symmetric. IMPRESSION: 1. Foreshortening of the left femoral neck which could be related to remote fracture however dedicate d views of the left hip are recommended.
[2023-07-02 14:53] LABS: Basophils # (A) 0.1 k/uL (0-0.2); Basophils % (A) 1 %; Eosinophils # (A) 0.4 k/uL (0-0.7); Eosinophils % (A) 3 %; HGB 13.6 gm/dL (13.0-17.5); Lymphocytes # (A) 1.8 k/uL (1.0-4.8); Lymphocytes % (A) 15 %; MCH 29.1 pg (25.0-35.0); MCHC 33.3 g/dL (31.0-37.0); MCV 87.5 fL (80.0-100.0); Mean Platelet Volume 7.1; Monocytes # (A) 0.4 k/uL (0-1.0); Monocytes % (A) 4 %; Neutrophils # (A) 8.8 k/uL (1.3-7.7); Neutrophils % (A) 76 %; Platelet Count 384 k/uL (150-450); RBC 4.69 m/uL (4.30-5.90); RDW 14.2 % (11.5-15.5); WBC 11.6 k/uL (3.8-10.6)
[2023-07-02 15:04] LABS: ALT 14 U/L (4-49); AST 20 U/L (17-59); African American GFR (CKD) 67 (>60 ml/min/1.73 sqM); Albumin 3.3 g/dL (3.5-5.0); Alkaline Phosphatase 100 U/L (38-126); Anion Gap 8 mmol/L; Blood Urea Nitrogen 22 mg/dL (9-20); Calcium 7.3 mg/dL (8.4-10.2); Carbon Dioxide 18 mmol/L (22-30); Chloride 115 mmol/L (98-107); Glucose 80 mg/dL (74-99); Magnesium 1.8 mg/dL (1.6-2.3); Non-African American GFR(CKD) 58 (>60 ml/min/1.73 sqM); Potassium 3.3 mmol/L (3.5-5.1); Sodium 141 mmol/L (137-145); Total Bilirubin 0.6 mg/dL (0.2-1.3); Total Protein 6.3 g/dL (6.3-8.2)
[2023-07-02] MEDS ORDERED: NALOXONE 0.4 MG/ML 1 ML VIAL IV PRN (15:20)
[2023-07-02] MEDS ORDERED: POTASSIUM CHLORIDE ER 20 MEQ TAB.ER PO STA (15:23)
[2023-07-02] MEDS: HEPARIN SODIUM,PORCINE 5,000 UNIT/ML 1 ML VIAL SQ SCH (16:55)
[2023-07-02] MEDS ORDERED: hydrALAZINE HCL 25 MG TAB PO STA (20:12)
[2023-07-02] MEDS ORDERED: ETODOLAC 400 MG TAB PO PRN (20:12)
[2023-07-02] MEDS ORDERED: LOSARTAN 50 MG TAB PO STA (20:12)
[2023-07-02] MEDS ORDERED: amLODIPine 10 MG TAB PO STA (20:12)
[2023-07-02] MEDS: traMADol 50 MG TAB PO PRN (20:44)
[2023-07-03] MEDS: HEPARIN SODIUM,PORCINE 5,000 UNIT/ML 1 ML VIAL SQ SCH ×4 (00:12→23:40)
[2023-07-03] MEDS: amLODIPine 10 MG TAB PO SCH (08:20)
[2023-07-03] MEDS: LOSARTAN 50 MG TAB PO SCH (08:20)
[2023-07-03] MEDS ORDERED: hydrALAZINE HCL 25 MG TAB PO SCH (09:00)
[2023-07-03 09:24] LABS: BUN/Creat Ratio 14.31 Ratio (12.00-20.00); Blood Urea Nitrogen 22.9 mg/dL (9.0-27.0); Calcium 9.4 mg/dL (8.7-10.3); Carbon Dioxide 25.2 mmol/L (21.6-31.8); Chloride 103 mmol/L (96-109); Glucose 93 mg/dL (70-110); Potassium 4.2 mmol/L (3.5-5.5); Sodium 140 mmol/L (135-145)
[2023-07-03 09:44] LABS: Basophils # (A) 0.07 X 10*3/uL (0.00-0.10); Basophils % (A) 0.8 %; Eosinophils # (A) 0.43 X 10*3/uL (0.04-0.35); HGB 12.8 g/dL (13.0-17.0); Lymphocytes # (A) 2.28 X 10*3/uL (0.90-5.00); Lymphocytes % (A) 26.6 %; MCH 28.4 pg (27.0-32.0); MCV 88.9 FL (80.0-97.0); Mean Platelet Volume 9.9 FL (9.5-12.2); Monocytes # (A) 0.76 X 10*3/uL (0.20-1.00); Monocytes % (A) 8.9 %; NRBC Per 100 WBC 0 X 10*3/uL (0.00-0.01); Neutrophils % (A) 58.2 %; Platelet Count 383 X 10*3/uL (140-440); RDW 14.1 % (11.5-14.5); WBC 8.58 X 10*3/uL (4.50-10.00)
[2023-07-03] MEDS: hydrALAZINE HCL 50 MG TAB PO SCH ×2 (14:40→20:34)
[2023-07-03] MEDS: GABAPENTIN 100 MG CAP PO SCH ×2 (15:56→20:34)
[2023-07-03] MEDS: DULoxetine HCL 20 MG CAPSULE.DR PO SCH (20:34)
[2023-07-03] MEDS: SENNOSIDES 8.6 MG TAB PO SCH (20:34)
[2023-07-03] MEDS: METOPROLOL TARTRATE 50 MG TAB PO SCH (20:34)
[2023-07-04] MEDS: hydrALAZINE HCL 50 MG TAB PO SCH ×3 (06:06→21:56)
[2023-07-04] MEDS: HEPARIN SODIUM,PORCINE 5,000 UNIT/ML 1 ML VIAL SQ SCH ×3 (07:59→23:45)
[2023-07-04] MEDS: amLODIPine 10 MG TAB PO SCH (08:00)
[2023-07-04] MEDS: SENNOSIDES 8.6 MG TAB PO SCH ×2 (08:00→21:56)
[2023-07-04] MEDS: NICOTINE 21MG/24HR PATCH TRANSDERM SCH ×2 (08:00→10:54)
[2023-07-04] MEDS: LOSARTAN 50 MG TAB PO SCH (08:00)
[2023-07-04] MEDS: GABAPENTIN 100 MG CAP PO SCH ×3 (08:00→21:55)
[2023-07-04] MEDS: TAMSULOSIN 0.4 MG CAP.ER.24H PO SCH (08:00)
[2023-07-04] MEDS: buPROPion XL 150 MG TAB.ER.24H PO SCH (08:01)
[2023-07-04] MEDS: DULoxetine HCL 20 MG CAPSULE.DR PO SCH ×2 (08:01→21:57)
[2023-07-04] MEDS: METOPROLOL TARTRATE 50 MG TAB PO SCH ×2 (08:01→21:56)
[2023-07-04] MEDS: LOSARTAN 25 MG TAB PO SCH (08:02)
[2023-07-04] MEDS: traMADol 50 MG TAB PO PRN ×3 (08:10→23:44)
[2023-07-04] MEDS: ACETAMINOPHEN TAB 325 MG TAB PO PRN ×2 (08:10→21:55)
[2023-07-05] MEDS: KETOROLAC 15 MG/ML 1 ML VIAL IVP PRN ×4 (00:35→21:27)
[2023-07-05] MEDS: hydrALAZINE HCL 50 MG TAB PO SCH ×3 (05:38→21:26)
[2023-07-05] MEDS: HEPARIN SODIUM,PORCINE 5,000 UNIT/ML 1 ML VIAL SQ SCH ×2 (09:10→15:02)
[2023-07-05] MEDS: TAMSULOSIN 0.4 MG CAP.ER.24H PO SCH (09:10)
[2023-07-05] MEDS: SENNOSIDES 8.6 MG TAB PO SCH ×2 (09:10→21:26)
[2023-07-05] MEDS: LOSARTAN 50 MG TAB PO SCH (09:10)
[2023-07-05] MEDS: LOSARTAN 25 MG TAB PO SCH (09:11)
[2023-07-05] MEDS: buPROPion XL 150 MG TAB.ER.24H PO SCH (09:11)
[2023-07-05] MEDS: amLODIPine 10 MG TAB PO SCH (09:11)
[2023-07-05] MEDS: GABAPENTIN 100 MG CAP PO SCH ×3 (09:11→21:26)
[2023-07-05] MEDS: METOPROLOL TARTRATE 50 MG TAB PO SCH ×2 (09:11→21:26)
[2023-07-05] MEDS: DULoxetine HCL 20 MG CAPSULE.DR PO SCH ×2 (09:12→21:26)
[2023-07-05] MEDS: NICOTINE 21MG/24HR PATCH TRANSDERM SCH (09:12)
[2023-07-05] MEDS: traMADol 50 MG TAB PO PRN (16:04)
[2023-07-06] MEDS: traMADol 50 MG TAB PO PRN ×2 (00:31→20:40)
[2023-07-06] MEDS: HEPARIN SODIUM,PORCINE 5,000 UNIT/ML 1 ML VIAL SQ SCH ×4 (00:32→22:25)
[2023-07-06] MEDS: hydrALAZINE HCL 50 MG TAB PO SCH ×3 (06:23→20:39)
[2023-07-06] MEDS: KETOROLAC 15 MG/ML 1 ML VIAL IVP PRN ×3 (06:24→22:24)
[2023-07-06] MEDS: SENNOSIDES 8.6 MG TAB PO SCH ×2 (08:44→20:41)
[2023-07-06] MEDS: LOSARTAN 25 MG TAB PO SCH (08:45)
[2023-07-06] MEDS: amLODIPine 10 MG TAB PO SCH (08:45)
[2023-07-06] MEDS: METOPROLOL TARTRATE 50 MG TAB PO SCH ×2 (08:45→20:39)
[2023-07-06] MEDS: TAMSULOSIN 0.4 MG CAP.ER.24H PO SCH (08:45)
[2023-07-06] MEDS: LOSARTAN 50 MG TAB PO SCH (08:45)
[2023-07-06] MEDS: GABAPENTIN 100 MG CAP PO SCH ×3 (08:45→20:40)
[2023-07-06] MEDS: buPROPion XL 150 MG TAB.ER.24H PO SCH (08:46)
[2023-07-06] MEDS: DULoxetine HCL 20 MG CAPSULE.DR PO SCH ×2 (08:46→20:39)
[2023-07-06] MEDS: NICOTINE 21MG/24HR PATCH TRANSDERM SCH (08:46)
[2023-07-06] MEDS: ACETAMINOPHEN TAB 325 MG TAB PO PRN (12:10)
--- NOTE | 2023-07-06 21:30 | HP ---
HISTORY AND PHYSICAL CHIEF COMPLAINT: Weakness and debility. HISTORY OF PRESENT ILLNESS: This gentleman was in [facility] for physical therapy and rehab and was discharged home, but immediately came to the emergency room because he could not walk and manage at home. REVIEW OF SYSTEMS: He has no other complaints such as neurologic problems, chest pain, shortness of breath, abdominal pain, incontinence, etc. Past medical history, family history and personal and social histories are all otherwise noncontributory. PHYSICAL EXAMINATION: VITAL SIGNS: Normal. HEAD, EARS, EYES, NOSE, MOUTH AND THROAT: Normal. CHEST: Clear. CARDIAC: Normal. ABDOMEN: Soft, nontender. EXTREMITIES: Normal. ASSESSMENT: He is admitted to the hospital with symptomatic diagnoses of: 1. Lower extremity weakness and inability to ambulate. 2. General debility. 3. Low back pain. PLAN: Bedrest and Central Office Repairer consult for discharge plan. MMODL / IJN: [id number] /
[2023-07-07] MEDS: KETOROLAC 15 MG/ML 1 ML VIAL IVP PRN ×3 (05:22→19:51)
[2023-07-07] MEDS: hydrALAZINE HCL 50 MG TAB PO SCH ×3 (05:22→21:40)
--- NOTE | 2023-07-07 05:30 | PN ---
PROGRESS NOTE DATE OF SERVICE: 07/06/2023 CHIEF COMPLAINT: General debility. HISTORY OF PRESENT ILLNESS: This gentleman is doing well. He is about the same. He is asking for high-dose narcotics, which will not necessary and will be refused. Discharge planning is in progress. PHYSICAL EXAMINATION: CHEST: Clear. CARDIAC: Normal. ABDOMEN: Soft and nontender. IMPRESSION: 1. General debility and weakness. 2. Chronic low back pain. PLAN: Await plan for discharge. MMODL / IJN: [id number] /
--- NOTE | 2023-07-07 06:52 | PN ---
PROGRESS NOTE CHIEF COMPLAINT: Debility and inability to ambulate. HISTORY OF PRESENT ILLNESS: This gentleman is stable. There has been no change. PHYSICAL EXAMINATION: CHEST: Clear. CARDIAC: Normal. ABDOMEN: Soft, nontender. IMPRESSION: Debility and nonambulatory status. PLAN: To wait for discharge location and plan. MMODL / IJN: [id number] /
--- NOTE | 2023-07-07 07:07 | PN ---
PROGRESS NOTE DATE OF SERVICE: 07/05/2023 CHIEF COMPLAINT: General debility, weakness and inability to walk. HISTORY OF PRESENT ILLNESS: This gentleman is stable, otherwise. He requires placement only. PHYSICAL EXAMINATION: VITAL SIGNS: Normal. CHEST: Clear. CARDIAC: Normal. ABDOMEN: Soft, nontender. IMPRESSION: General debility and weakness with inability to ambulate. PLAN: Placement. MMODL / IJN: [id number] /
--- NOTE | 2023-07-07 07:31 | PN ---
PROGRESS NOTE DATE OF SERVICE: 07/03/2023 CHIEF COMPLAINT: Leg weakness and inability to ambulate. HISTORY OF PRESENT ILLNESS: This gentleman seems to be doing fairly well. His blood pressure is slightly elevated. Other than that, he is stable. He does complain back pain from his arthritis. PHYSICAL EXAMINATION: CHEST: Clear. CARDIAC: Normal. ABDOMEN: Soft, nontender. IMPRESSION: 1. General debility with weakness of lower extremities and inability to ambulate. 2. LS spine arthritis. 3. Hypertension. PLAN: Await social research assistant management for discharge planning. MMODL / IJN: [id number] /
[2023-07-07] MEDS: HEPARIN SODIUM,PORCINE 5,000 UNIT/ML 1 ML VIAL SQ SCH ×2 (08:18→16:55)
[2023-07-07] MEDS: SENNOSIDES 8.6 MG TAB PO SCH ×2 (08:18→21:40)
[2023-07-07] MEDS: METOPROLOL TARTRATE 50 MG TAB PO SCH ×2 (08:18→21:40)
[2023-07-07] MEDS: GABAPENTIN 100 MG CAP PO SCH ×3 (08:18→21:40)
[2023-07-07] MEDS: LOSARTAN 25 MG TAB PO SCH (08:19)
[2023-07-07] MEDS: TAMSULOSIN 0.4 MG CAP.ER.24H PO SCH (08:19)
[2023-07-07] MEDS: LOSARTAN 50 MG TAB PO SCH (08:19)
[2023-07-07] MEDS: amLODIPine 10 MG TAB PO SCH (08:19)
[2023-07-07] MEDS: buPROPion XL 150 MG TAB.ER.24H PO SCH (08:20)
[2023-07-07] MEDS: DULoxetine HCL 20 MG CAPSULE.DR PO SCH ×2 (08:21→21:40)
[2023-07-07] MEDS: NICOTINE 21MG/24HR PATCH TRANSDERM SCH (08:21)
[2023-07-07] MEDS: traMADol 50 MG TAB PO PRN ×2 (08:30→18:49)
[2023-07-08] MEDS: HEPARIN SODIUM,PORCINE 5,000 UNIT/ML 1 ML VIAL SQ SCH ×3 (00:34→16:21)
[2023-07-08] MEDS: KETOROLAC 15 MG/ML 1 ML VIAL IVP PRN ×4 (01:44→19:55)
[2023-07-08] MEDS: hydrALAZINE HCL 50 MG TAB PO SCH ×3 (05:41→21:06)
[2023-07-08 08:13] VITALS: BMI 32.1
[2023-07-08] MEDS: TAMSULOSIN 0.4 MG CAP.ER.24H PO SCH (08:46)
[2023-07-08] MEDS: GABAPENTIN 100 MG CAP PO SCH ×3 (08:46→21:06)
[2023-07-08] MEDS: buPROPion XL 150 MG TAB.ER.24H PO SCH (08:46)
[2023-07-08] MEDS: METOPROLOL TARTRATE 50 MG TAB PO SCH ×2 (08:46→21:06)
[2023-07-08] MEDS: NICOTINE 21MG/24HR PATCH TRANSDERM SCH (08:46)
[2023-07-08] MEDS: DULoxetine HCL 20 MG CAPSULE.DR PO SCH ×2 (08:46→21:06)
[2023-07-08] MEDS: LOSARTAN 50 MG TAB PO SCH (08:47)
[2023-07-08] MEDS: amLODIPine 10 MG TAB PO SCH (08:47)
[2023-07-08] MEDS: SENNOSIDES 8.6 MG TAB PO SCH ×2 (08:47→21:06)
[2023-07-08] MEDS: LOSARTAN 25 MG TAB PO SCH (08:47)
--- NOTE | 2023-07-08 11:42 | XR ---
EXAMINATION TYPE: XR lumbosacral spine min 4V DATE OF EXAM: 07/08/2023 10:51 AM CLINICAL INDICATION:Male, 62 years old with history of pain, non-ambulatory; H COMPARISON: None TECHNIQUE: XR lumbosacral spine min 4V - Frontal, lateral , bilateral oblique and coned in L5-S1 late ral views of the spine. FINDINGS: No evidence of any acute osseous pathology. No evidence of loss of vertebral body height i s seen. There is normal alignment of the lumbar vertebral bodies. Mild scattered disc space narrowing . Multilevel marginal osteophyte formation throughout the visualized spine. There is facet joint arth ropathy throughout the spine. Scattered at least mild neural foraminal stenosis. IMPRESSION: 1. No acute fracture. 2. Mild multilevel disc degeneration.
[2023-07-08] MEDS: traMADol 50 MG TAB PO PRN (23:10)
[2023-07-09] MEDS: HEPARIN SODIUM,PORCINE 5,000 UNIT/ML 1 ML VIAL SQ SCH ×4 (00:09→23:55)
[2023-07-09] MEDS: KETOROLAC 15 MG/ML 1 ML VIAL IVP PRN ×4 (01:50→21:15)
[2023-07-09] MEDS: ACETAMINOPHEN TAB 325 MG TAB PO PRN (02:25)
[2023-07-09] MEDS: hydrALAZINE HCL 50 MG TAB PO SCH ×3 (05:50→21:07)
[2023-07-09] MEDS: traMADol 50 MG TAB PO PRN ×2 (05:50→19:05)
[2023-07-09] MEDS: GABAPENTIN 100 MG CAP PO SCH ×3 (08:29→21:08)
[2023-07-09] MEDS: SENNOSIDES 8.6 MG TAB PO SCH ×2 (08:30→21:08)
[2023-07-09] MEDS: amLODIPine 10 MG TAB PO SCH (08:30)
[2023-07-09] MEDS: DULoxetine HCL 20 MG CAPSULE.DR PO SCH ×2 (08:30→21:07)
[2023-07-09] MEDS: TAMSULOSIN 0.4 MG CAP.ER.24H PO SCH (08:30)
[2023-07-09] MEDS: LOSARTAN 50 MG TAB PO SCH (08:30)
[2023-07-09] MEDS: METOPROLOL TARTRATE 50 MG TAB PO SCH ×2 (08:30→21:08)
[2023-07-09] MEDS: buPROPion XL 150 MG TAB.ER.24H PO SCH (08:31)
[2023-07-09] MEDS: LOSARTAN 25 MG TAB PO SCH (08:32)
[2023-07-09] MEDS: NICOTINE 21MG/24HR PATCH TRANSDERM SCH (08:32)
[2023-07-10] MEDS: traMADol 50 MG TAB PO PRN ×3 (05:42→22:08)
[2023-07-10] MEDS: hydrALAZINE HCL 50 MG TAB PO SCH ×3 (05:43→20:33)
[2023-07-10] MEDS: ACETAMINOPHEN TAB 325 MG TAB PO PRN ×2 (09:20→20:34)
[2023-07-10] MEDS: GABAPENTIN 100 MG CAP PO SCH ×3 (09:20→20:34)
[2023-07-10] MEDS: amLODIPine 10 MG TAB PO SCH (09:21)
[2023-07-10] MEDS: METOPROLOL TARTRATE 50 MG TAB PO SCH ×2 (09:21→20:33)
[2023-07-10] MEDS: SENNOSIDES 8.6 MG TAB PO SCH ×2 (09:21→20:33)
[2023-07-10] MEDS: LOSARTAN 25 MG TAB PO SCH (09:21)
[2023-07-10] MEDS: LOSARTAN 50 MG TAB PO SCH (09:21)
[2023-07-10] MEDS: TAMSULOSIN 0.4 MG CAP.ER.24H PO SCH (09:21)
[2023-07-10] MEDS: HEPARIN SODIUM,PORCINE 5,000 UNIT/ML 1 ML VIAL SQ SCH ×3 (09:21→23:13)
[2023-07-10] MEDS: NICOTINE 21MG/24HR PATCH TRANSDERM SCH (09:22)
[2023-07-10] MEDS: buPROPion XL 150 MG TAB.ER.24H PO SCH (09:22)
[2023-07-10] MEDS: DULoxetine HCL 20 MG CAPSULE.DR PO SCH ×2 (09:22→20:33)
--- NOTE | 2023-07-10 17:58 | PN ---
PROGRESS NOTE DATE OF SERVICE: 07/10/2023 CHIEF COMPLAINT: General debility and weakness. HISTORY OF PRESENT ILLNESS: The patient is stable and awaits discharge plan. PHYSICAL EXAMINATION: VITAL SIGNS: Normal. CHEST: Clear. ABDOMEN: Soft and nontender. IMPRESSION: 1. General debility and weakness. 2. Low back pain. PLAN: Await discharge plan from Aquaculturist. MMODL / IJN: [id number] /
--- NOTE | 2023-07-10 18:51 | PN ---
PROGRESS NOTE DATE OF SERVICE: 07/09/2023 CHIEF COMPLAINT: General debility with weakness and inability to ambulate. HISTORY OF PRESENT ILLNESS: This gentleman's condition is the same. We await discharge plan and program. PHYSICAL EXAMINATION: Unchanged. IMPRESSION: 1. General debility and weakness. 2. Inability to ambulate. 3. Low back pain. PLAN: Await discharge arrangements from Senior Contracts Administrator. MMANAL / IJN: [id number] /
[2023-07-10 20:04] VITALS: RESP 18
[2023-07-11] MEDS: traMADol 50 MG TAB PO PRN (05:55)
[2023-07-11] MEDS: hydrALAZINE HCL 50 MG TAB PO SCH (05:55)
[2023-07-11] MEDS: GABAPENTIN 100 MG CAP PO SCH (08:29)
[2023-07-11] MEDS: LOSARTAN 50 MG TAB PO SCH (08:29)
[2023-07-11] MEDS: DULoxetine HCL 20 MG CAPSULE.DR PO SCH (08:29)
[2023-07-11] MEDS: METOPROLOL TARTRATE 50 MG TAB PO SCH (08:29)
[2023-07-11] MEDS: HEPARIN SODIUM,PORCINE 5,000 UNIT/ML 1 ML VIAL SQ SCH (08:29)
[2023-07-11] MEDS: SENNOSIDES 8.6 MG TAB PO SCH (08:29)
[2023-07-11] MEDS: LOSARTAN 25 MG TAB PO SCH (08:30)
[2023-07-11] MEDS: TAMSULOSIN 0.4 MG CAP.ER.24H PO SCH (08:30)
[2023-07-11] MEDS: NICOTINE 21MG/24HR PATCH TRANSDERM SCH (08:30)
[2023-07-11] MEDS: buPROPion XL 150 MG TAB.ER.24H PO SCH (08:30)
[2023-07-11] MEDS: amLODIPine 10 MG TAB PO SCH (08:30)
[2023-07-11 09:13] VITALS: BP 124/72; PULSE 68; TEMP 98.1
[2023-07-11] MEDS: ACETAMINOPHEN TAB 325 MG TAB PO PRN (09:48)
--- NOTE | 2023-07-11 19:43 | DS ---
DISCHARGE SUMMARY CHIEF COMPLAINT: Weakness in the lower extremities, general debility, and failure to thrive. HISTORY OF PRESENT ILLNESS AND PHYSICAL EXAMINATION: Details of this man's history and physical can be found in the initial workup. LABORATORY STUDIES: While he was in the hospital, he had laboratory studies, details of which can be found in the laboratory section of his chart. COURSE IN THE HOSPITAL: After admission, he was placed on bedrest, started intravenous fluids and was started on PT and OT. In the meantime, Business Analytics Director looked for possible discharge plan. He was turned down by his insurance company for rehab. Finally, Business Analytics Director suggested sending him home. It is unclear as to how he will function at home and it is expected that he will likely return to the hospital soon. FINAL DIAGNOSES: 1. General debility and weakness. 2. Inability to ambulate. 3. Low back pain and LS spine arthritis. OPERATIONS: None. CONSULTATIONS: None. He is improved. MARTA / DENIZ: [id number] /
--- NOTE | 2023-07-12 23:21 | PN ---
PROGRESS NOTE DATE OF SERVICE: 07/07/2023 CHIEF COMPLAINT: General debility, weakness, and inability to walk. HISTORY OF PRESENT ILLNESS: This patient is still waiting for discharge plan. REVIEW OF SYSTEMS: He has no complaints except for his back pain. PHYSICAL EXAMINATION: GENERAL: Normal. VITAL SIGNS: Normal. CHEST: Clear. CARDIAC: Normal. ABDOMEN: Soft, nontender. IMPRESSION: Lower extremity weakness and debility. PLAN: Await for placement. MMODL / IJN: [id number] /
--- NOTE | 2023-07-13 00:52 | PN ---
PROGRESS NOTE DATE OF SERVICE: 07/08/2023 CHIEF COMPLAINT: General debility and inability to ambulate. HISTORY OF PRESENT ILLNESS: This gentleman has been stable and there has been no interval change. We are waiting for discharge plan. PHYSICAL EXAMINATION: CHEST: Clear. CARDIAC: Normal. ABDOMEN: Soft, nontender. IMPRESSION: General debility and failure to thrive with back pain. PLAN: He awaits placement. MMODL / IJN: [id number] /
== END 2023-07-11 14:12 | disposition home or self-care (01) ==
LOC: EC 12:01 → 5NMEDONC 15:20 → INTOOBSV 15:20 → 4SSUR 16:44
PROVIDERS: ADMIT Family Medicine; ATTEND Family Medicine
DX: R53.1 Weakness (principal); E86.0 Dehydration; E87.6 Hypokalemia; R53.81 Other malaise; M47.817 Spondylosis without myelopathy or radiculopathy, lumbosacral region; R62.7 Adult failure to thrive; R26.2 Difficulty in walking, not elsewhere classified; I10 Essential (primary) hypertension; F32.A Depression, unspecified; F41.9 Anxiety disorder, unspecified; Z68.32 Body mass index [BMI] 32.0-32.9, adult; Z20.822 Contact with and (suspected) exposure to COVID-19; Z86.19 Personal history of other infectious and parasitic diseases; Z79.01 Long term (current) use of anticoagulants; Z79.899 Other long term (current) drug therapy
CPT/HCPCS: 96376 ×5; 96372 ×10; 96374; 99285; 36415; 94760 ×2; 93005; 97116 ×3; 97162; 97530; 97166; 80053; 80048; 83605; 83735; 85025 ×2; 81001; 87636; 72110; 72170; G0378 ×10; S4990 ×8; J1644 ×10; J1885 ×5

== ENCOUNTER 2023-07-13 09:44 | Observation (INO) | payer MEDICARE, OTHER ==
--- NOTE | 2023-07-13 10:26 | ED ---
General Adult HPI - General Source: patient, RN notes reviewed Mode of arrival: wheelchair Limitations: no limitations <Shania Brownlee - Last Filed: 07/13/23 10:25> - General Source: patient, RN notes reviewed Mode of arrival: wheelchair Limitations: no limitations <Mitesh Mon - Last Filed: 07/13/23 16:12> - General Chief complaint: Fall Stated complaint: fell lower back pain Time Seen by Provider: 07/13/23 10:25 - History of Present Illness Initial comments: Patient is a 62-year-old male presented to ER with chief complaint of falls and weakness. Patient was recently admitted for rehab placement and discharged 2 days ago. Patient states he has been having increased falls and feeling weak. Patient denies any fevers, chills, bowel or bladder incontinence, injury, saddle paresthesias, IV drug use. (Shania Brownlee) 62-year-old male presents emergency department chief complaint of increasing weakness, falls. Patient states he was admitted and discharged 2 days ago. He was awaiting placement secondary to increasing weakness. Patient states that he can barely get around with a walker he states he had another fall today just because increasing low back pain nonradiating. Denies any bowel, bladder incontinence or retention no saddle anesthesias. He states secondary to the pain and leg weakness which has been ongoing as cause him to not be able to get around. (Mitesh Mon) - Related Data Home Medications Medication Instructions Recorded Confirmed Losartan [Cozaar] 25 mg PO DAILY 07/02/23 07/02/23 Metoprolol Tartrate [Lopressor] 50 mg PO BID 07/02/23 07/02/23 NIFEdipine XL [Procardia XL] 60 mg PO BID 07/02/23 07/02/23 Tamsulosin [Flomax] 0.4 mg PO DAILY 07/02/23 07/02/23 hydrALAZINE HCL [Apresoline] 50 mg PO Q8H 07/02/23 07/02/23 Allergies Allergy/AdvReac Type Severity Reaction Status Date / Time No Known Allergies Allergy Verified 07/02/23 18:12 Review of Systems ROS Other: All systems not noted in ROS Statement are negative. <Shania Brownlee - Last Filed: 07/13/23 10:25> ROS Other: All systems not noted in ROS Statement are negative. <Mitesh Mon - Last Filed: 07/13/23 16:12> ROS Statement: Those systems with pertinent positive or pertinent negative responses have been documented in the HPI. Past Medical History Past Medical History: Hypertension, Liver Disease, Osteoarthritis (OA) Additional Past Medical History / Comment(s): 02/04/17 cellulitis L leg, HEPATITIS C treated with interferon but returned-pt now self treating with HENRY 52, arthritis bilateral knees and in the past affected his thumbs, head injury in 1986 with blood clot on brain with surgery, RETAIN FLUID IN LEGS, low back pain with L sided sciatica, sinusitis. History of Any Multi-Drug Resistant Organisms: MRSA Date of last positivie culture/infection: 04/29/17 MDRO Source:: KNEE,BLOOD Past Surgical History: Orthopedic Surgery Additional Past Surgical History / Comment(s): RIGHT KNEE ARTHROSCOPIC , TOTAL RIGHT KNEE, TOTAL LEFT KNEE in 2012, revision of meniscus in June 2013, left total knee revision in January 2017, BLOOD CLOT REMOVED FROM BRAIN, colonoscopy. Past Anesthesia/Blood Transfusion Reactions: No Reported Reaction Past Psychological History: Anxiety, Depression Smoking Status: Current every day smoker Past Alcohol Use History: None Reported Past Drug Use History: None Reported - Past Family History Mother Family Medical History: Diabetes Mellitus Additional Family Medical History / Comment(s): Mother is 90 yrs old. Father Family Medical History: Diabetes Mellitus Additional Family Medical History / Comment(s): Father is . <Shania Brownlee - Last Filed: 07/13/23 10:25> General Exam Limitations: no limitations <Shania Brownlee - Last Filed: 07/13/23 10:25> General appearance: alert, in no apparent distress Head exam: Present: atraumatic, normocephalic, normal inspection Eye exam: Present: normal appearance, PERRL, EOMI. Absent: scleral icterus, conjunctival injection, periorbital swelling ENT exam: Present: normal exam, mucous membranes moist Neck exam: Present: normal inspection, full ROM. Absent: tenderness, meningismus, lymphadenopathy Respiratory exam: Present: normal lung sounds bilaterally. Absent: respiratory distress, wheezes, rales, rhonchi, stridor Cardiovascular Exam: Present: regular rate, normal rhythm, normal heart sounds. Absent: systolic murmur, diastolic murmur, rubs, gallop, clicks Extremities exam: Present: normal inspection, full ROM, normal capillary refill, other (Lower extremity strength bilaterally, mild weakness bilateral lower extremities). Absent: tenderness, pedal edema, joint swelling, calf tenderness Back exam: Present: tenderness, paraspinal tenderness, vertebral tenderness. Absent: full ROM Neurological exam: Present: alert, oriented X3, CN II-XII intact, reflexes normal. Absent: motor sensory deficit Skin exam: Present: warm, dry, intact, normal color. Absent: rash <Mitesh Mon - Last Filed: 07/13/23 16:12> - General Exam Comments Initial Comments: Visual Physical Exam Vital signs reviewed General: Well-appearing, nontoxic, no acute distress. Head: Normocephalic, atraumatic Eyes: PERRLA, EOMI ENT: Airway patent Chest: Nonlabored breathing Skin: No visual rash, normal skin tone Neuro: Alert and oriented 3 Musculoskeletal: No gross abnormalities (Shania Brownlee) Course Vital Signs 07/13/23 10:07 Temperature 98.6 F Pulse Rate 112 H Respiratory 16 Rate Blood Pressure 144/108 O2 Sat by Pulse 96 Oximetry Medical Decision Making <Shania Brownlee - Last Filed: 07/13/23 10:25> - Lab Data Result diagrams: 07/13/23 11:12 07/13/23 11:12 <Mitesh Mon - Last Filed: 07/13/23 16:12> - Medical Decision Making I performed the quick note portion of the exam. Electronically signed by SYEDA CastilloC (Shania Brownlee) Was pt. sent in by a medical professional or institution (KLEVER Cooney, PREDICTIVE MAINTENANCE TECHNICIAN, urgent c are, hospital, or jail...) When possible be specific @ -No Did you speak to anyone other than the patient for history (EMS, parent, family, police, friend...)? What history was obtained from this source @ -No Did you review nursing and triage notes (agree or disagree)? Why? @ -I reviewed and agree with nursing and triage notes Were old charts reviewed (outside hosp., previous admission, EMS record, old EKG, old radiological studies, urgent care reports/EKG's, jail records)? Report findings @ -[Review recent admission, laboratory studies Differential Diagnosis (chest pain, altered mental status, abdominal pain women, abdominal pain men, vaginal bleeding, weakness, fever, dyspnea, syncope, headache, dizziness, GI bleed, back pain, seizure, CVA, palpatations, mental health, musculoskeletal)? @ -Differential Back Pain: Strain, zoster, cauda equina syndrome, epidural abscess, vertebral osteomyelitis, discitis, fracture, subluxation, disc herniation, DJD, spinal stenosis, dissection, AAA, pancreatitis, peptic ulcer disease, pyelonephritis, kidney stone, this is not meant to be an all-inclusive list. EKG interpreted by me (3pts min.). @ -None X-rays interpreted by me (1pt min.). @ -[X-ray lumbar spine showing L1 compression fracture CT interpreted by me (1pt min.). @ -[None done U/S interpreted by me (1pt. min.). @ -None done What testing was considered but not performed or refused? (CT, X-rays, U/S, labs)? Why? @ -None What meds were considered but not given or refused? Why? @ -None Did you discuss the management of the patient with other professionals (bertha ramirez i.e. , PA, PREDICTIVE MAINTENANCE TECHNICIAN, lab, RT, psych nurse, rn social services, decal decorator, teacher, facilities officer, case making machine operator)? Give summary @ -[Hospitalist for admission secondary to compression fracture, weakness and will have orthopedic consult Was smoking cessation discussed for >3mins.? @ -No Was critical care preformed (if so, how long)? @ -No Were there social determinants of health that impacted care today? How? (Homelessness, low income, unemployed, alcoholism, drug addiction, transportation, low edu. Level, literacy, decrease access to med. care, fci, rehab)? @ -No Was there de-escalation of care discussed even if they declined (Discuss DNR or withdrawal of care, Hospice)? DNR status @ -No What co-morbidities impacted this encounter? (DM, HTN, Smoking, COPD, CAD, Cancer, CVA, ARF, Chemo, Hep., AIDS, mental health diagnosis, sleep apnea, morbid obesity)? @ -None Was patient admitted / discharged? Hospital course, mention meds given and route, prescriptions, significant lab abnormalities, going to OR and other pertinent info. @ -[Admit to for further evaluation possible physical therapy plus or minus placement secondary to fall, compression fracture Undiagnosed new problem with uncertain prognosis? @ -No Drug Therapy requiring intensive monitoring for toxicity (Heparin, Nitro, Insulin, Cardizem)? @ -No Were any procedures done? @ -No Diagnosis/symptom? @ -Lumbar compression fracture, weakness t Acute, or Chronic, or Acute on Chronic? @ -[acute Uncomplicated (without systemic symptoms) or Complicated (systemic symptoms)? @ -Uncomplicated Side effects of treatment? @ -[No Exacerbation, Progression, or Severe Exacerbation? @ -No Poses a threat to life or bodily function? How? (Chest pain, USA, SD, pneumonia, PE, COPD, DKA, ARF, appy, cholecystitis, CVA, Diverticulitis, Homicidal, Suicidal, threat to staff... and all critical care pts) @ -No (Mitesh Mon) - Lab Data Lab Results 07/13/23 07/13/23 07/13/23 Range/Units 11:12 11:12 11:12 WBC 10.6 (3.8-10.6) k/uL RBC 5.47 (4.30-5.90) m/uL Hgb 15.8 (13.0-17.5) gm/dL Hct 48.2 (39.0-53.0) % MCV 88.2 (80.0-100.0) fL MCH 29.0 (25.0-35.0) pg MCHC 32.8 (31.0-37.0) g/dL RDW 14.6 (11.5-15.5) % Plt Count 365 (150-450) k/uL MPV 7.1 Sodium 144 (137-145) mmol/L Potassium 4.5 (3.5-5.1) mmol/L Chloride 104 (98-107) mmol/L Carbon Dioxide 27 (22-30) mmol/L Anion Gap 13 mmol/L BUN 22 H (9-20) mg/dL Creatinine 1.85 H (0.66-1.25) mg/dL Est GFR (CKD-EPI)AfAm 44 (>60 ml/min/1.73 sqM) Est GFR (CKD-EPI)NonAf 38 (>60 ml/min/1.73 sqM) Glucose 113 H (74-99) mg/dL Calcium 10.3 H (8.4-10.2) mg/dL Phosphorus 4.5 (2.5-4.5) mg/dL Magnesium 2.1 (1.6-2.3) mg/dL Total Bilirubin 1.0 (0.2-1.3) mg/dL AST 29 (17-59) U/L ALT 26 (4-49) U/L Alkaline Phosphatase 132 H (38-126) U/L Total Protein 10.0 H (6.3-8.2) g/dL Albumin 5.2 H (3.5-5.0) g/dL Influenza Type A (PCR) Not Detected (Not Detectd) Influenza Type B (PCR) Not Detected (Not Detectd) RSV (PCR) Not Detected (Not Detectd) SARS-CoV-2 (PCR) Not Detected (Not Detectd) Disposition <Shania Brownlee - Last Filed: 07/13/23 10:25> Time of Disposition: 16:12 <Mitesh Mon - Last Filed: 07/13/23 16:12> Clinical Impression: Fall, Lumbar compression fracture, Difficulty in walking Disposition: ADMITTED IP TO THIS HOSP Condition: Fair Referrals: Bobby Mccormack MD [Primary Care Provider] - 07/18/23 3:00 pm (Bring insurance cards, ID cards, and any prescription bottles from home. You will have new patient paperwork to complete. Arrive promptly at 3pm.) Forms: [employer], Personal Civil Engineering Manager
[2023-07-13 11:29] LABS: HCT 48.2 % (39.0-53.0); HGB 15.8 gm/dL (13.0-17.5); MCHC 32.8 g/dL (31.0-37.0); MCV 88.2 fL (80.0-100.0); Mean Platelet Volume 7.1; Platelet Count 365 k/uL (150-450); RBC 5.47 m/uL (4.30-5.90); RDW 14.6 % (11.5-15.5); WBC 10.6 k/uL (3.8-10.6)
[2023-07-13 12:16] LABS: ALT 26 U/L (4-49); AST 29 U/L (17-59); African American GFR (CKD) 44 (>60 ml/min/1.73 sqM); Albumin 5.2 g/dL (3.5-5.0); Alkaline Phosphatase 132 U/L (38-126); Anion Gap 13 mmol/L; Blood Urea Nitrogen 22 mg/dL (9-20); Calcium 10.3 mg/dL (8.4-10.2); Carbon Dioxide 27 mmol/L (22-30); Chloride 104 mmol/L (98-107); Glucose 113 mg/dL (74-99); Magnesium 2.1 mg/dL (1.6-2.3); Non-African American GFR(CKD) 38 (>60 ml/min/1.73 sqM); Phosphorus 4.5 mg/dL (2.5-4.5); Potassium 4.5 mmol/L (3.5-5.1); Sodium 144 mmol/L (137-145)
--- NOTE | 2023-07-13 16:00 | XR ---
EXAMINATION TYPE: XR lumbosacral spine 5 views DATE OF EXAM: 07/13/2023 Comparison: 07/08/2023 Clinical History: 62-year-old male with pain Findings: 5 lumbar type vertebral bodies. Hypertrophic facet arthropathy lower lumbar spine. Moderate degenerat vicki disc disease L5-S1 with narrowed disc, vacuum phenomenon, and sclerotic endplate change. Similar anterior wedge deformity secondary to superior endplate compression fracture at L1. Impression: 1. There is a superior endplate fracture of L1 resulting in anterior wedge deformity. In retrospect, this was present on 07/08/2023 but was less apparent at that time. This is age indeterminate given the lack of older comparisons. Correlate for any focal pain at this level to help assess acuity. 2. Facet arthropathy lower lumbar spine and moderate degenerative disc disease L5-S1. No malalignment .
[2023-07-13 16:06] LABS: Hyaline Casts,Urine 1 /lpf (0-2); Mucus,Urine Rare /hpf; RBC,Urine 1 /hpf (0-5); Squamous Epithelial Cell,Urine <1 /hpf (0-4); WBC,Urine 11 /hpf (0-5)
[2023-07-13] MEDS ORDERED: ONDANSETRON 4 MG/2 ML VIAL IVP PRN (16:18)
[2023-07-13] MEDS ORDERED: NALOXONE 0.4 MG/ML 1 ML VIAL IV PRN (16:18)
[2023-07-13 16:21] LABS: Appearance,Urine Slightly Cloudy (Clear); Color,Urine Light Yellow
[2023-07-13 16:22] LABS: Bilirubin,Urine Negative (Negative); Blood,Urine Negative (Negative); Glucose,Urine (UA) Negative (Negative); Ketones,Urine Negative (Negative); Protein,Urine Negative (Negative); Specific Gravity,Urine 1.014 (1.001-1.035); Urobilinogen,Urine <2.0 mg/dL (<2.0)
[2023-07-13 16:23] LABS: Leukocyte Esterase,Urine Negative (Negative); Nitrite,Urine Negative (Negative)
[2023-07-13] MEDS: HYDROcodone/APAP 5-325MG 1 EACH TAB PO PRN (17:13)
[2023-07-13] MEDS ORDERED: LABETALOL 5 MG/ML VIAL MDV IVP STA (20:51)
[2023-07-14] MEDS: HYDROcodone/APAP 5-325MG 1 EACH TAB PO PRN ×2 (00:33→20:16)
--- NOTE | 2023-07-14 10:19 | P.CNOR ---
History of Present Illness - HPI Consult date: 07/14/23 Consult reason: low back pain History of present illness: Patient is seen and examined at bedside. He is a pleasant 62-year-old male who says he has been having weakness and falling frequently. He says his primary pain is at his lower back. It does not go down his legs. He is not having specific weakness in his leg but he feels he has generalized weakness which causes him to fall. He denies any chest pain or shortness of breath. He denies any headaches or loss of consciousness. He denies any abdominal pain. Denies any fevers chills or night sweats. Denies any nausea or vomiting. He says he is not having any problems with his urination or bowel movements. He has trouble walking as he feels weak all over but he is able to get around with a walker. In bed he does not feel weak at all when he lifts his up and moves his legs. He localizes pain over his lower back. He says he has not had any s kin changes or bruises or bleeding. Review of Systems Per HPI. He says he has a history of cirrhosis because he used to drink but quit drinking over 30 years ago. 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 He normally gets around at home and uses a walker when he goes out. Past Medical History Past Medical History: Hypertension, Liver Disease, Osteoarthritis (OA) Additional Past Medical History / Comment(s): 02/04/17 cellulitis L leg, HEPATITIS C treated with interferon but returned-pt now self treating with HENRY 52, arthritis bilateral knees and in the past affected his thumbs, head injury in 1986 with blood clot on brain with surgery, RETAIN FLUID IN LEGS, low back pain with L sided sciatica, sinusitis. History of Any Multi-Drug Resistant Organisms: MRSA Year Discovered:: 04/29/17 MDRO Source:: KNEE,BLOOD Past Surgical History: Orthopedic Surgery Additional Past Surgical History / Comment(s): RIGHT KNEE ARTHROSCOPIC , TOTAL RIGHT KNEE, TOTAL LEFT KNEE in 2012, revision of meniscus in June 2013, left total knee revision in January 2017, BLOOD CLOT REMOVED FROM BRAIN, colonoscopy. Past Anesthesia/Blood Transfusion Reactions: No Reported Reaction Past Psychological History: Anxiety, Depression Additional Psychological History / Comment(s): Pt lives with a friend. He uses a cane to ambulate. He is independent. Smoking Status: Current every day smoker Past Alcohol Use History: None Reported Additional Past Alcohol Use History / Comment(s): Patient smokes half a pack per day since he was 11 years of age. He denies any medical marijuana, marijuana, street drug use. Patient has been sober from alcohol for 27 years. He is currently living with a roommate. There are no animals in the home. 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 Patient is currently at [facility] for rehab and has not smoked since his last admission. Past Drug Use History: None Reported Additional Drug Use History / Comment(s): STARTED SMOKING AT AGE 11 SMOKES 1/2PPD - Past Family History Mother Family Medical History: Diabetes Mellitus Additional Family Medical History / Comment(s): Mother is 90 yrs old. Father Family Medical History: Diabetes Mellitus Additional Family Medical History / Comment(s): Father is . Medications and Allergies Home Medications Medication Instructions Recorded Confirmed Type Losartan [Cozaar] 25 mg PO DAILY 07/02/23 07/13/23 History Metoprolol Tartrate [Lopressor] 50 mg PO BID 07/02/23 07/13/23 History NIFEdipine XL [Procardia XL] 60 mg PO BID 07/02/23 07/13/23 History Tamsulosin [Flomax] 0.4 mg PO DAILY 07/02/23 07/13/23 History hydrALAZINE HCL [Apresoline] 50 mg PO Q8H 07/02/23 07/13/23 History Allergies Allergy/AdvReac Type Severity Reaction Status Date / Time No Known Allergies Allergy Verified 07/13/23 17:16 Physical Examination Osteopathic Statement: *. No significant issues noted on an osteopathic structural exam other than those noted in the History and Physical/Consult. - L Spine: dermatomal strength & reflexes bilateral Strength: hip flexion: 5/5 (Back has some mild tenderness at the midline. There is no crepitus. There is no bruising or ecchymosis. His legs have 5 out of 5 strength dorsiflexion plantarflexion EHL hip flexion knee extension bilaterally.) Strength: knee flexion: 5/5 (Knees have full active and passive range of motion. Thighs and calf soft nontender. Hips are nontender with rotation and palpation.) Strength: ankle plantar flexion: 5/5 (His thoracic spine and neck are nontender to palpation. He has good range of motion to his neck and bilateral upper extremities without pain. Abdomen soft nontender. Chest has good excursion deep inspiration expiration) Results - Labs Labs: Abnormal Lab Results - Last 24 Hours (Table) 07/13/23 07/13/23 Range/Units 11:04 11:12 BUN 22 H (9-20) mg/dL Creatinine 1.85 H (0.66-1.25) mg/dL Glucose 113 H (74-99) mg/dL Calcium 10.3 H (8.4-10.2) mg/dL Alkaline Phosphatase 132 H (38-126) U/L Total Protein 10.0 H (6.3-8.2) g/dL Albumin 5.2 H (3.5-5.0) g/dL Urine WBC 11 H (0-5) /hpf Urine Mucus Rare H (None) /hpf H & H 07/13/23 Range/Units 11:12 Hgb 15.8 (13.0-17.5) gm/dL Hct 48.2 (39.0-53.0) % Result Diagrams: 07/13/23 11:12 07/13/23 11:12 - Diagnostic results Lumbar AP/lateral x-ray: report reviewed, image reviewed (Imaging lumbar spine reveals a compression deformity with about 50% height loss at L1.) Assessment and Plan Assessment: Low back pain status post multiple falls L1 compression formerly of unknown certain chronicity No apparent neurologic compromise at lower extremities or deficit Generalized weakness per patient History of cirrhosis Plan: Low back pain status post multiple falls L1 compression formerly of unknown certain chronicity No apparent neurologic compromise at lower extremities or deficit Generalized weakness per patient History of cirrhosis The patient has been having multiple falls and has an compression deformity at L1. He does not recall any specific injury to his back in the past and he has some pain at his lower back with palpation. With these findings and his subjective weakness I think is worthwhile along with his new injury to obtain a MRI of his lumbar spine. This will show evidence of chronicity of the fracture and may help to delineate his feelings of weakness. We will order an MRI here. He may have some pain relief with bracing. Oftentimes than compression deformity can heal well with conservative measures and we will order an LSO brace for him. He should use the LSO brace whenever he is out of bed, but he may remove it when he is in bed or for bathing. Is okay for the patient to mobilize and ambulate with the brace on. We will have therapy work with him for this. Hopefully they can work on balance training as well due to try to prevent further falls.
[2023-07-14] MEDS: hydrALAZINE HCL 50 MG TAB PO SCH ×2 (11:13→17:34)
--- NOTE | 2023-07-14 19:19 | PN ---
PROGRESS NOTE CHIEF COMPLAINT: Fall due to inability to ambulate. HISTORY OF PRESENT ILLNESS: This gentleman is stable and will resume physical therapy and look for a suitable discharge plan. PHYSICAL EXAMINATION: CHEST: Clear. CARDIAC: Normal. ABDOMEN: Soft, nontender. IMPRESSION: 1. General debility and inability to ambulate with frequent falling. 2. Compression fracture of L1. PLAN: Continue with therapy and discharge planning. MMODL / IJN: [id number] /
--- NOTE | 2023-07-14 19:37 | HP ---
HISTORY AND PHYSICAL CHIEF COMPLAINT: Fall with weakness and inability to ambulate as well as a compression fracture. HISTORY OF PRESENT ILLNESS: This 62-year-old male was in the hospital with inability to ambulate. Long-term care facility could not be identified that he could go to and Construction Area Manager suggested that he be discharged. He no sooner went home, then he fell and came back to the emergency room with weakness and what looked like an L1 compression fracture, which was thought to be worse than it had been seen before. REVIEW OF SYSTEMS: Otherwise unremarkable. He has had no syncope. Past medical history, family history, and personal and social histories are all otherwise unchanged. PHYSICAL EXAMINATION: VITAL SIGNS: Blood pressure is 142/90 with a pulse of 78, respirations 27, and he is afebrile. GENERAL: He appeared to be well developed, well nourished, no acute distress. SKIN: Color is normal. Skin is warm, dry. LYMPHATICS: Lymph nodes are not enlarged. HEAD, EARS, EYES, NOSE, MOUTH AND THROAT: Normal. CHEST: Clear. CARDIAC: Normal. ABDOMEN: Soft, nontender. EXTREMITIES: Normal. NEUROLOGIC: He is intact. ASSESSMENT: He is admitted to the hospital with diagnoses of: 1. Frequent falling. 2. General debility and weakness with inability to ambulate. 3. L1 compression fracture-changed acutely. PLAN: 1. Bed rest. 2. IV fluids. 3. Construction Area Manager referral once again. MMANAL / DENIZ: [id number] /
[2023-07-14] MEDS: METOPROLOL TARTRATE 50 MG TAB PO SCH (20:16)
[2023-07-15] MEDS: hydrALAZINE HCL 50 MG TAB PO SCH ×4 (00:06→23:29)
[2023-07-15] MEDS: HYDROcodone/APAP 5-325MG 1 EACH TAB PO PRN ×3 (00:06→23:45)
[2023-07-15] MEDS: METOPROLOL TARTRATE 50 MG TAB PO SCH ×2 (08:56→19:49)
[2023-07-15] MEDS: LOSARTAN 25 MG TAB PO SCH (08:56)
[2023-07-15] MEDS: TAMSULOSIN 0.4 MG CAP.ER.24H PO SCH (08:56)
--- NOTE | 2023-07-15 09:01 | P.PN ---
Progress Note - Text Progress Note Date: 07/15/23 Orthopedic spine: History of present illness: Patient is a pleasant 62-year-old male who is seen and examined at bedside for follow-up evaluation of his lumbar spine. Since being seen and examined yesterday, he has not had any change in his symptoms. He continues to have good active range of motion of his lower extremities while lying in bed but continues to feel weakness with his lower extremities during ambulation. He does continue to have pain at his lower lumbar spine. He is not complaining of a specific radicular pattern of pain in his lower extremities. His pain is currently adequately controlled with hydrocodone. Yesterday, an LSO brace was prescribed and was brought to the bedside. This brace is too big for him. He states Jennifer is planning to return today with a smaller brace and we will plan to fit it accordingly. MRI imaging of the lumbar spine was ordered yesterday. This has not yet been performed. He is currently scheduled for MRI imaging at 10:15 AM. Patient continues to be seen examined by medicine for his multiple other medical diagnoses. Physical exam: Patient is awake, alert, and oriented 3 Vital signs stable Good chest excursion with deep inspiration and expiration Examination of lumbar spine reveals skin is intact with no abrasions, lacerations, or bruises; no erythema, purulence or signs of infection Mild pain with palpation along the midline of the mid lumbar spine Dorsiflexion, plantarflexion, and extensor hallucis longus positive sustained bilaterally Patient is able to perform independent range of motion of his lower extremities with dorsiflexion, plantarflexion, and knee extension without difficulty No signs or symptoms of DVT; no calf pain No pain with internal and external rotation of the hips bilaterally Neurovascularly intact Assessment: Low back pain Generalized lower extremity weakness with frequent falls L1 compression fracture deformity of unknown chronicity L5-S1 degenerative disc disease Status post multiple falls History of cirrhosis Hypertension Hepatitis C Plan: 1. Patient continues to have low back pain as his most significant symptom. He has generalized weakness with frequent falls during ambulation. He does not have difficulty with his lower extremities while lying in bed. He does not experience a specific lower extremity radiculopathy pattern. He is not currently complaining of any leg pain. He is not complaining of weakness in his lower extremities while lying in bed and is able to perform active range of motion of his lower extremities while lying in bed. 2. Currently, given his compression fracture deformity seen on x-ray imaging and his frequent falls, lumbar MRI imaging has been ordered. This is scheduled to be performed today at 10:15 AM. Following completion of this MRI, we will plan to review the MRI and we will discuss a plan of care proceeding forward based on those MRI results. 3. We do continue to feel he could benefit from bracing. A prescription was written, signed, and provided to case management to obtain an LSO brace. This was brought to the bedside yesterday, but the brace was too big. Patient states Jennifer is planning to return today with a smaller brace to see if this brace will fit more appropriately. He is encouraged to use his brace when upright and when doing increased activities and while working with physical therapy. Brace does not have to be worn while lying in bed or bathing.
--- NOTE | 2023-07-15 11:42 | MR ---
EXAMINATION TYPE: MR lumbar spine wo con DATE OF EXAM: 07/15/2023 10:49 AM CLINICAL INDICATION:Male, 62 years old with history of L1 compression fracture status post fall; PHH, Lower back pain, weakness, fall, L1 compression fx. COMPARISON: None TECHNIQUE: Multi planar, multi sequence imaging was performed utilizing: T1-weighted, T2-weighted, a nd turbo inversion recovery imaging of the lumbar spine. IV Contrast: (None if empty) FINDINGS: Alignment: The lumbar vertebral bodies have preserved heights and alignment. Cord: The conus medullaris and the distal spinal cord appear unremarkable with regards to their signa l intensity and morphology. Bones/Discs: Bony edema within the L1 vertebral body with associated low T1/high T2 high STIR signal. No evidence for significant retropulsion is at least 50% height loss. There is scattered osteophyte formation disc space narrowing and facet joint arthropathy present throughout the spine. Bony edema a t the adjoining endplates of L5-S1 compatible with reactive edema. T12-L1: No evidence of significant spinal canal stenosis or neural foraminal stenosis. L1-L2: No evidence of significant spinal canal stenosis or neural foraminal stenosis. L2-L3: No evidence of significant spinal canal stenosis or neural foraminal stenosis. L3-L4: Disc bulge and facet joint arthropathy result in mild spinal canal and mild bilateral neural f oraminal stenosis. L4-L5: Disc bulge and facet joint arthropathy result in mild spinal canal and moderate bilateral neur al foraminal stenosis. L5-S1: The disc is rounded posterior morphology without significant spinal canal stenosis. Facet join t arthropathy with severe bilateral bilateral neural foraminal stenosis. No significant spinal canal or neural foraminal stenosis in the remainder of the visualized levels. Other findings: None. IMPRESSION: 1. Acute/subacute compression deformity of the L1 vertebral body with 50% height loss and no signifi cant retropulsion. 2. Disc degeneration changes with severe bilateral L5-S1 neural foraminal stenosis. 3. Mild to moderate disc degeneration changes throughout the spine.
--- NOTE | 2023-07-15 20:31 | PN ---
PROGRESS NOTE DATE OF SERVICE: 07/15/2023 CHIEF COMPLAINT: Frequent falling and general debility, and weakness. HISTORY OF PRESENT ILLNESS: This gentleman is stable and there has been no change. 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 PHYSICAL EXAMINATION: CHEST: Clear. CARDIAC: Normal. ABDOMEN: Soft, nontender. IMPRESSION: 1. General debility and failure to thrive. 2. Frequent falls. 3. Hypertension. PLAN: Discharge planning. MMODL / HANN: [id number] /
[2023-07-16] MEDS: HYDROcodone/APAP 5-325MG 1 EACH TAB PO PRN ×2 (04:13→20:09)
[2023-07-16] MEDS: LOSARTAN 25 MG TAB PO SCH (09:37)
[2023-07-16] MEDS: hydrALAZINE HCL 50 MG TAB PO SCH ×2 (09:37→17:09)
[2023-07-16] MEDS: TAMSULOSIN 0.4 MG CAP.ER.24H PO SCH (09:38)
[2023-07-16] MEDS: METOPROLOL TARTRATE 50 MG TAB PO SCH ×2 (09:38→20:09)
--- NOTE | 2023-07-16 19:28 | PN ---
PROGRESS NOTE DATE OF SERVICE: 07/16/2023 CHIEF COMPLAINT: General debility, failure to thrive, and inability to ambulate. HISTORY OF PRESENT ILLNESS: This gentleman is stable and there has been no interval change. It does look as though he has some osteoarthritic problems in the back that could be resulting in neuropathy affecting the lower extremities. PHYSICAL EXAMINATION: CHEST: Clear. CARDIAC: Normal. ABDOMEN: Soft and nontender. IMPRESSION: General debility and failure to thrive with inability to ambulate. PLAN: Continue looking for discharge location. This gentleman could probably well served by having a nerve conduction study and an EMG of the lower extremities. MMODL / IJN: [id number] /
[2023-07-17] MEDS: HYDROcodone/APAP 5-325MG 1 EACH TAB PO PRN ×3 (00:17→15:55)
[2023-07-17] MEDS: hydrALAZINE HCL 50 MG TAB PO SCH ×3 (00:17→15:55)
[2023-07-17] MEDS: METOPROLOL TARTRATE 50 MG TAB PO SCH ×2 (09:07→20:40)
[2023-07-17] MEDS: TAMSULOSIN 0.4 MG CAP.ER.24H PO SCH (09:07)
[2023-07-17] MEDS: LOSARTAN 25 MG TAB PO SCH (09:07)
[2023-07-17 13:12] LABS: ALT 21 U/L (4-49); AST 25 U/L (17-59); African American GFR (CKD) 44 (>60 ml/min/1.73 sqM); Albumin 4.5 g/dL (3.5-5.0); Albumin/Globulin Ratio 1.3; Alkaline Phosphatase 100 U/L (38-126); Anion Gap 13 mmol/L; Blood Urea Nitrogen 34 mg/dL (9-20); Calcium 9.5 mg/dL (8.4-10.2); Carbon Dioxide 21 mmol/L (22-30); Chloride 105 mmol/L (98-107); Globulin 3.6 g/dL; Glucose 131 mg/dL (74-99); Non-African American GFR(CKD) 38 (>60 ml/min/1.73 sqM); Potassium 4.5 mmol/L (3.5-5.1); Sodium 139 mmol/L (137-145); Total Bilirubin 0.7 mg/dL (0.2-1.3); Total Protein 8.1 g/dL (6.3-8.2)
--- NOTE | 2023-07-17 14:57 | XR ---
EXAMINATION TYPE: XR chest 1V portable DATE OF EXAM: 07/17/2023 COMPARISON: 04/27/2017 HISTORY: Shortness of breath TECHNIQUE: Single frontal view of the chest is obtained. FINDINGS: There is no focal air space opacity, pleural effusion, or pneumothorax seen. There are ti ny calcified granulomas scattered throughout both lung zones which are stable. No suspicious nodule i s seen. The cardiac silhouette size is within normal limits. The osseous structures are intact. IMPRESSION: No acute cardiopulmonary disease.
--- NOTE | 2023-07-17 22:52 | PN ---
PROGRESS NOTE DATE OF SERVICE: 07/17/2023 CHIEF COMPLAINT: General debility and inability to ambulate. HISTORY OF PRESENT ILLNESS: This gentleman is doing well. He is awake, and alert. No chest pain, shortness of breath, abdominal pain, etc. He still is unable to bear weight for any distance. IMPRESSION: 1. General debility and weakness. 2. Spastic paraplegia. PLAN: Continue to look for discharge planning. MMODL / IJN: [id number] /
[2023-07-17 22:57] LABS: Basophils # (A) 0.07 X 10*3/uL (0.00-0.10); Basophils % (A) 0.6 %; Eosinophils # (A) 0.67 X 10*3/uL (0.04-0.35); Eosinophils % (A) 5.6 %; HCT 42.5 % (39.6-50.0); HGB 13.9 g/dL (13.0-17.0); Lymphocytes # (A) 2.22 X 10*3/uL (0.90-5.00); Lymphocytes % (A) 18.6 %; MCH 28.6 pg (27.0-32.0); MCHC 32.7 g/dL (32.0-37.0); MCV 87.4 FL (80.0-97.0); Mean Platelet Volume 9.3 FL (9.5-12.2); Monocytes # (A) 0.75 X 10*3/uL (0.20-1.00); Monocytes % (A) 6.3 %; NRBC Per 100 WBC 0 X 10*3/uL (0.00-0.01); Neutrophils # (A) 8.17 X 10*3/uL (1.80-7.70); Neutrophils % (A) 68.5 %; Platelet Count 318 X 10*3/uL (140-440); RBC 4.86 X 10*6/uL (4.40-5.60); RDW 14.4 % (11.5-14.5); WBC 11.93 X 10*3/uL (4.50-10.00)
[2023-07-18] MEDS: hydrALAZINE HCL 50 MG TAB PO SCH ×2 (00:06→08:45)
[2023-07-18] MEDS: LOSARTAN 25 MG TAB PO SCH (08:45)
[2023-07-18] MEDS: METOPROLOL TARTRATE 50 MG TAB PO SCH (08:45)
[2023-07-18] MEDS: TAMSULOSIN 0.4 MG CAP.ER.24H PO SCH (08:45)
[2023-07-18 09:19] VITALS: RESP 20
--- NOTE | 2023-07-18 12:00 | DS ---
DISCHARGE SUMMARY CHIEF COMPLAINT: General debility, weakness, and inability to ambulate. HISTORY OF PRESENT ILLNESS AND PHYSICAL EXAMINATION: Details of this man's history and physical can be found in the initial workup. LABORATORY STUDIES: While he was in the hospital, he had laboratory studies, details of which can be found in the laboratory section of his chart. COURSE IN THE HOSPITAL: After admission, he was placed on bedrest, started on intravenous fluids, and PT and OT. He was in the custodial before and cannot walk well enough to live independently. He was just discharged a week or 10 days ago to home and came back immediately. He has now been approved to go to a custodial. X-ray of the LS spine and an MRI indicated he has significant LS spine degenerative osteoarthritis and disk disease. FINAL DIAGNOSES: 1. General debility and failure to thrive. 2. 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 OPERATIONS: None. CONSULTATIONS: None. He is improved. MMTYRONE / DENIZ: [id number] /
[2023-07-18 15:37] VITALS: BP 160/94; PULSE 68; TEMP 98.2
== END 2023-07-18 15:03 ==
LOC: EC 09:44 → 4SSUR 16:55
PROVIDERS: ADMIT Family Medicine; ATTEND Family Medicine
DX: R62.7 Adult failure to thrive (principal); S32.019A Unspecified fracture of first lumbar vertebra, initial encounter for closed fracture; W19.XXXA Unspecified fall, initial encounter; R29.6 Repeated falls; R53.1 Weakness; M51.37 Other intervertebral disc degeneration, lumbosacral region; K74.60 Unspecified cirrhosis of liver; I10 Essential (primary) hypertension; F32.A Depression, unspecified; F41.9 Anxiety disorder, unspecified; B18.2 Chronic viral hepatitis C; G82.20 Paraplegia, unspecified; F17.200 Nicotine dependence, unspecified, uncomplicated; Z20.822 Contact with and (suspected) exposure to COVID-19; Z79.899 Other long term (current) drug therapy
CPT/HCPCS: 96374; 99285; 36415; 93005; 97530; 97162; 97166; 80053 ×2; 83735; 84100; 85025; 85027; 81001; 87086; 87636; 72110; 71045; 72148; G0378 ×6; J1920

== ENCOUNTER 2023-08-29 18:55 | Observation (INO) | payer MEDICARE ==
--- NOTE | 2023-08-29 19:36 | ED ---
Fall HPI - General Chief Complaint: Fall Stated Complaint: Fall Time Seen by Provider: 08/29/23 19:34 Source: patient, RN notes reviewed, old records reviewed Mode of arrival: wheelchair Limitations: physical limitation - History of Present Illness Initial Comments: Patient is a 62-year-old male presented to the ER with chief complaint of fall and weakness. Patient states he was released from [facility] on Tuesday08/23/23. He states he has not taken any medication since then as he has not been able to get them. He states today he was at [email or web address] and when he stood up his legs gave out. Patient does report that he urinated and had a bowel movement. He states he could not hold it. He denies any head injury, loss of consciousness, blood thinner use. Denies any other injuries. Denies chest pain, shortness of breath, dizziness, lightheadedness prior to fall. Patient states he does not want to go back to [facility]. Patient lives in a home with 1 roommate. He feels that he is able to care for himself at home. - Related Data Home Medications Medication Instructions Recorded Confirmed Losartan [Cozaar] 25 mg PO DAILY 07/02/23 07/13/23 Metoprolol Tartrate [Lopressor] 50 mg PO BID 07/02/23 07/13/23 NIFEdipine XL [Procardia XL] 60 mg PO BID 07/02/23 07/13/23 Tamsulosin [Flomax] 0.4 mg PO DAILY 07/02/23 07/13/23 hydrALAZINE HCL [Apresoline] 50 mg PO Q8H 07/02/23 07/13/23 Allergies Allergy/AdvReac Type Severity Reaction Status Date / Time No Known Allergies Allergy Verified 08/29/23 19:22 Review of Systems ROS Statement: Those systems with pertinent positive or pertinent negative responses have been documented in the HPI. ROS Other: All systems not noted in ROS Statement are negative. Past Medical History Past Medical History: Hypertension, Liver Disease, Osteoarthritis (OA) Additional Past Medical History / Comment(s): 02/04/17 cellulitis L leg, HEPATITIS C treated with interferon but returned-pt now self treating with HENRY [facility], arthritis bilateral knees and in the past affected his thumbs, head injury in 1986 with blood clot on brain with surgery, RETAIN FLUID IN LEGS, low back pain with L sided sciatica, sinusitis. History of Any Multi-Drug Resistant Organisms: MRSA Date of last positivie culture/infection: 04/29/17 MDRO Source:: KNEE,BLOOD Past Surgical History: Orthopedic Surgery Additional Past Surgical History / Comment(s): RIGHT KNEE ARTHROSCOPIC , TOTAL RIGHT KNEE, TOTAL LEFT KNEE in 2012, revision of meniscus in June 2013, left total knee revision in January 2017, BLOOD CLOT REMOVED FROM BRAIN, colonoscopy. Past Anesthesia/Blood Transfusion Reactions: No Reported Reaction Past Psychological History: Anxiety, Depression Smoking Status: Current every day smoker Past Alcohol Use History: None Reported Past Drug Use History: None Reported - Past Family History Mother Family Medical History: Diabetes Mellitus Additional Family Medical History / Comment(s): Mother is 90 yrs old. Father Family Medical History: Diabetes Mellitus Additional Family Medical History / Comment(s): Father is . General Exam Limitations: no limitations General appearance: alert, in no apparent distress Head exam: Present: atraumatic, normocephalic, normal inspection Eye exam: Present: normal appearance, PERRL, EOMI. Absent: scleral icterus, conjunctival injection, periorbital swelling ENT exam: Present: normal exam, mucous membranes moist Neck exam: Present: normal inspection. Absent: tenderness, meningismus, lymphadenopathy Respiratory exam: Present: normal lung sounds bilaterally. Absent: respiratory distress, wheezes, rales, rhonchi, stridor Cardiovascular Exam: Present: regular rate, normal rhythm, normal heart sounds. Absent: systolic murmur, diastolic murmur, rubs, gallop, clicks GI/Abdominal exam: Present: soft, normal bowel sounds. Absent: distended, tenderness, guarding, rebound, rigid Extremities exam: Present: normal inspection, full ROM, normal capillary refill. Absent: tenderness, pedal edema, joint swelling, calf tenderness Back exam: Present: normal inspection, tenderness (lumbar spine and pelvic gurdle) Neurological exam: Present: alert, oriented X3, CN II-XII intact Psychiatric exam: Present: normal affect, normal mood Skin exam: Present: warm, dry, intact, normal color. Absent: rash Course Vital Signs 08/29/23 19:18 Temperature 99.5 F Pulse Rate 104 H Respiratory 20 Rate Blood Pressure 146/108 O2 Sat by Pulse 98 Oximetry - Reevaluation(s) Reevaluation #1: 08/29/23 23:[address] Mccormack who accepts medical admission. Medical Decision Making - Medical Decision Making Was pt. sent in by a medical professional or institution (KLEVER Cooney, CRIME SCENE INVESTIGATOR, urgent care, hospital, or skilled nursing...) When possible be specific @ -No Did you speak to anyone other than the patient for history (EMS, parent, family, police, friend...)? What history was obtained from this source @ -No Did you review nursing and triage notes (agree or disagree)? Why? @ -I reviewed and agree with nursing and triage notes Were old charts reviewed (outside hosp., previous admission, EMS record, old EKG, old radiological studies, urgent care reports/EKG's, skilled nursing records)? Report findings @ -No old charts were reviewed Differential Diagnosis (chest pain, altered mental status, abdominal pain women, abdominal pain men, vaginal bleeding, weakness, fever, dyspnea, syncope, headache, dizziness, GI bleed, back pain, seizure, CVA, palpatations, mental health, musculoskeletal)? @ -Differential Weakness:Hypoglycemia, shock, sepsis, hyponatremia, anemia, infection, TN, ETOH, adverse medicine reaction, overdose, stroke, this is not meant to be an all-inclusive list. EKG interpreted by me (3pts min.). @ -As above X-rays interpreted by me (1pt min.). @ -Chest x-ray interpreted by me negative for acute cardiopulmonary process. CT interpreted by me (1pt min.). @ -CT brain C-spine negative for acute intracranial process. CT lumbar spine showing chronic appearing compression fracture of L1. Degenerative changes and moderate canal stenosis at L4-L5. L5-S1 facet joint arthropathy with moderate to severe right bilateral neuroforaminal stenosis. U/S interpreted by me (1pt. min.). @ -None done What testing was considered but not performed or refused? (CT, X-rays, U/S, labs)? Why? @ -None What meds were considered but not given or refused? Why? @ -None Did you discuss the management of the patient with other professionals (professionals i.e. , KLEVER, CRIME SCENE INVESTIGATOR, lab, RT, psych nurse, social services director, housekeeping/laundry, teacher, loan servicing officer, lead case manager)? Give summary @ -Yes, case discussed with Dr. Mccormack who accepts medical admission. Was smoking cessation discussed for >3mins.? @ -I discussed smoking cessation for greater than 3 minutes. The risk of smoking were discussed with the patient including but not limited to risks of cancer, stroke, coronary artery disease and COPD. Also discussed with patient were multiple methods of quitting smoking. Lastly we discussed the financial cost of smoking. Was critical care preformed (if so, how long)? @ -No Were there social determinants of health that impacted care today? How? (Homelessness, low income, unemployed, alcoholism, drug addiction, transportation, low edu. Level, literacy, decrease access to med. care, shelter, rehab)? @ -Patient recently released from [facility] for rehab due to falls. Low income Was there de-escalation of care discussed even if they declined (Discuss DNR or withdrawal of care, Hospice)? DNR status @ -No What co-morbidities impacted this encounter? (DM, HTN, Smoking, COPD, CAD, Cancer, CVA, ARF, Chemo, Hep., AIDS, mental health diagnosis, sleep apnea, morbid obesity)? @ -Hypertension, smoker Was patient admitted / discharged? Hospital course, mention meds given and route, prescriptions, significant lab abnormalities, going to OR and other pertinent info. @ -Admitted. Patient is a 62-year-old male presenting to the ER with a chief complaint of a fall. History and physical exam completed. Vital stable. Bilateral upper and lower extremities neurovascular intact. No acute neurological findings on exam. Labs obtained significant for white blood cell count 11.0 which is likely reactive to smoking. Patient has an RUEL (BUN 25, creatinine 1.91). Influenza, COVID, RSV negative. Imaging completed in the ER negative for acute process. Admission considered due to recurrent falls and patient not having access to medications since discharge from rehab. Case discussed with Dr. Mccormack who accepts medical admission. PT/OT will be on consult. Patient received IV hydralazine and fluids for blood pressure control in the ER. Results discussed with patient, all questions answered. Patient agreeable for admission. Case discussed with ED attending, Dr. Johnson. Undiagnosed new problem with uncertain prognosis? @ -No Drug Therapy requiring intensive monitoring for toxicity (Heparin, Nitro, Insulin, Cardizem)? @ -No Were any procedures done? @ -No Diagnosis/symptom? @ -Recurrent falls/weakness/UREL/HTN Acute, or Chronic, or Acute on Chronic? @ -Acute Uncomplicated (without systemic symptoms) or Complicated (systemic symptoms)? @ -Complicated Side effects of treatment? @ -No Exacerbation, Progression, or Severe Exacerbation? @ -No Poses a threat to life or bodily function? How? (Chest pain, [place], TN, pneumonia, PE, COPD, DKA, ARF, appy, cholecystitis, CVA, Diverticulitis, Homicidal, Suicidal, threat to staff... and all critical care pts) @ -No - Lab Data Result diagrams: 08/29/23 20:03 08/29/23 20:03 Lab Results 08/29/23 08/29/23 08/29/23 Range/Units 20:03 20:03 20:03 WBC 11.0 H (3.8-10.6) k/uL RBC 4.76 (4.30-5.90) m/uL Hgb 13.6 (13.0-17.5) gm/dL Hct 41.1 (39.0-53.0) % MCV 86.4 (80.0-100.0) fL MCH 28.5 (25.0-35.0) pg MCHC 33.0 (31.0-37.0) g/dL RDW 14.1 (11.5-15.5) % Plt Count 349 (150-450) k/uL MPV 7.1 Neutrophils % 72 % Lymphocytes % 20 % Monocytes % 4 % Eosinophils % 3 % Basophils % 1 % Neutrophils # 7.9 H (1.3-7.7) k/uL Lymphocytes # 2.1 (1.0-4.8) k/uL Monocytes # 0.4 (0-1.0) k/uL Eosinophils # 0.4 (0-0.7) k/uL Basophils # 0.1 (0-0.2) k/uL PT 10.8 (10.0-12.5) sec INR 1.0 (<1.2) APTT 25.9 (22.0-30.0) sec Sodium 142 (137-145) mmol/L Potassium 3.4 L (3.5-5.1) mmol/L Chloride 106 (98-107) mmol/L Carbon Dioxide 24 (22-30) mmol/L Anion Gap 12 mmol/L BUN 25 H (9-20) mg/dL Creatinine 1.91 H (0.66-1.25) mg/dL Est GFR (CKD-EPI)AfAm 42 (>60 ml/min/1.73 sqM) Est GFR (CKD-EPI)NonAf 37 (>60 ml/min/1.73 sqM) Glucose 116 H (74-99) mg/dL Plasma Lactic Acid Chemo (0.7-2.0) mmol/L Calcium 9.5 (8.4-10.2) mg/dL Magnesium 1.9 (1.6-2.3) mg/dL Total Bilirubin 0.9 (0.2-1.3) mg/dL AST 26 (17-59) U/L ALT 19 (4-49) U/L Alkaline Phosphatase 79 (38-126) U/L Troponin I (0.000-0.034) ng/mL Total Protein 8.0 (6.3-8.2) g/dL Albumin 4.5 (3.5-5.0) g/dL Influenza Type A (PCR) (Not Detectd) Influenza Type B (PCR) (Not Detectd) RSV (PCR) (Not Detectd) SARS-CoV-2 (PCR) (Not Detectd) 08/29/23 08/29/23 08/29/23 Range/Units 20:03 20:03 20:03 WBC (3.8-10.6) k/uL RBC (4.30-5.90) m/uL Hgb (13.0-17.5) gm/dL Hct (39.0-53.0) % MCV (80.0-100.0) fL MCH (25.0-35.0) pg MCHC (31.0-37.0) g/dL RDW (11.5-15.5) % Plt Count (150-450) k/uL MPV Neutrophils % % Lymphocytes % % Monocytes % % Eosinophils % % Basophils % % Neutrophils # (1.3-7.7) k/uL Lymphocytes # (1.0-4.8) k/uL Monocytes # (0-1.0) k/uL Eosinophils # (0-0.7) k/uL Basophils # (0-0.2) k/uL PT (10.0-12.5) sec INR (<1.2) APTT (22.0-30.0) sec Sodium (137-145) mmol/L Potassium (3.5-5.1) mmol/L Chloride (98-107) mmol/L Carbon Dioxide (22-30) mmol/L Anion Gap mmol/L BUN (9-20) mg/dL Creatinine (0.66-1.25) mg/dL Est GFR (CKD-EPI)AfAm (>60 ml/min/1.73 sqM) Est GFR (CKD-EPI)NonAf (>60 ml/min/1.73 sqM) Glucose (74-99) mg/dL Plasma Lactic Acid Chemo 1.2 (0.7-2.0) mmol/L Calcium (8.4-10.2) mg/dL Magnesium (1.6-2.3) mg/dL Total Bilirubin (0.2-1.3) mg/dL AST (17-59) U/L ALT (4-49) U/L Alkaline Phosphatase (38-126) U/L Troponin I <0.012 (0.000-0.034) ng/mL Total Protein (6.3-8.2) g/dL Albumin (3.5-5.0) g/dL Influenza Type A (PCR) Not Detected (Not Detectd) Influenza Type B (PCR) Not Detected (Not Detectd) RSV (PCR) Not Detected (Not Detectd) SARS-CoV-2 (PCR) Not Detected (Not Detectd) - EKG Data -: EKG Interpreted by Me EKG Comments: EKG taken at 20: 04 showing sinus rhythm with no acute ST segment or T wave abnormalities. Ventricular rate 83, TX interval 157, QRS duration 110, QT/QTc 400/440. - Radiology Data Radiology results: report reviewed, image reviewed Disposition Clinical Impression: Recurrent falls, Weakness, RUEL (acute kidney injury), Hypertension Disposition: ADMITTED IP TO THIS HOSP Condition: Fair Referrals: Bobby Mccormack MD [Primary Care Provider] - 1-2 days Time of Disposition: 23:26
[2023-08-29] MEDS: HYDROcodone/APAP 5-325MG 1 EACH TAB PO STA (19:42)
[2023-08-29 20:13] LABS: Basophils # (A) 0.1 k/uL (0-0.2); Basophils % (A) 1 %; Eosinophils # (A) 0.4 k/uL (0-0.7); Eosinophils % (A) 3 %; HCT 41.1 % (39.0-53.0); HGB 13.6 gm/dL (13.0-17.5); Lymphocytes # (A) 2.1 k/uL (1.0-4.8); Lymphocytes % (A) 20 %; MCH 28.5 pg (25.0-35.0); MCV 86.4 fL (80.0-100.0); Mean Platelet Volume 7.1; Monocytes # (A) 0.4 k/uL (0-1.0); Monocytes % (A) 4 %; Neutrophils # (A) 7.9 k/uL (1.3-7.7); Neutrophils % (A) 72 %; Platelet Count 349 k/uL (150-450); RBC 4.76 m/uL (4.30-5.90); RDW 14.1 % (11.5-15.5)
[2023-08-29 20:21] LABS: Partial Thromboplastin Time 25.9 sec (22.0-30.0); Prothrombin Time 10.8 sec (10.0-12.5)
[2023-08-29 20:26] LABS: ALT 19 U/L (4-49); AST 26 U/L (17-59); African American GFR (CKD) 42 (>60 ml/min/1.73 sqM); Albumin 4.5 g/dL (3.5-5.0); Alkaline Phosphatase 79 U/L (38-126); Anion Gap 12 mmol/L; Blood Urea Nitrogen 25 mg/dL (9-20); Calcium 9.5 mg/dL (8.4-10.2); Carbon Dioxide 24 mmol/L (22-30); Chloride 106 mmol/L (98-107); Glucose 116 mg/dL (74-99); Magnesium 1.9 mg/dL (1.6-2.3); Non-African American GFR(CKD) 37 (>60 ml/min/1.73 sqM); Potassium 3.4 mmol/L (3.5-5.1); Sodium 142 mmol/L (137-145); Total Bilirubin 0.9 mg/dL (0.2-1.3)
[2023-08-29] MEDS: SODIUM CHLORIDE 0.9% 1,000 ML IV STA (20:46)
--- NOTE | 2023-08-29 22:13 | CT ---
EXAMINATION TYPE: CT brain wo con CT DLP: 1095.4 mGycm, Automated exposure control for dose reduction was used. DATE OF EXAM: 08/29/2023 8:33 PM COMPARISON: None. CLINICAL INDICATION:Male, 62 years old with history of weakness, headache TECHNIQUE: Brain: Axial CT images of the brain were obtained with coronal and sagittal reformats created and rev iewed. Contrast used: None. Oral contrast used: None. FINDINGS: Extra-axial spaces: No abnormal extra-axial fluid collections. Ventricular system: Ventricles appear dilated in proportion to the degree of cerebral atrophy. Cerebral parenchyma: No increased attenuation to suggest acute intraparenchymal hemorrhage. The gra y-white matter interface appears maintained. Moderate to severe generalized brain atrophy. Patchy a nd confluent hypoattenuating areas are seen within the cerebral white matter, nonspecific but most of ten seen with chronic microvascular ischemic changes; moderate/severe in degree. Encephalomalacia wi th volume loss seen along the inferior aspect of the right temporal lobe and right frontal lobe albert tible with remote infarcts/insults. Similarly, there is a smaller area in the posterior aspect of the right frontal lobe superiorly with the appearance of a remote infarct/insult. Remote appearing lacun ar infarcts in the bilateral basal ganglia and lateral to the posterior aspect right lateral ventricl e. Cerebellum: No acute abnormality. Mass effect: No evidence of mass effect or midline shift. Intracranial vasculature: Atherosclerotic calcifications of the larger arteries near the skull base. Soft tissues: No acute or concerning abnormality. Visualized orbits: Orbital contents appear grossly intact. Calvarium/osseous structures: No evidence of calvarial fracture. Calvarial irregularity on the right laterally over the frontotemporal region, likely sequela of previous craniotomy. Paranasal sinuses and mastoid air cells: Some frothy secretion is noted in the left sphenoid sinus. L obular mucosal thickening, mucous retention cysts or polyps in the bilateral maxillary sinuses. There is mild/moderate nasal septal deviation to the right. Mastoid air cells are clear. MRI is more sensitive for detecting acute processes such as infarct, and may be considered if clinica lly warranted. IMPRESSION: 1. Moderate to severe atrophy and chronic microvascular ischemic changes of the white matter. 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 2. No definite acute CT abnormality. If concern for occult acute process, follow-up MRI would be rec ommended. 3. Secretions in the left sphenoid sinus can be seen with acute sinus disease.
--- NOTE | 2023-08-29 22:27 | XR ---
EXAMINATION TYPE: XR chest 2V DATE OF EXAM: 08/29/2023 8:15 PM CLINICAL INDICATION:Male, 62 years old with history of Weakness; PHH COMPARISON: Chest radiographs from 07/17/2023 TECHNIQUE: XR chest 2V Frontal and lateral views of the chest. FINDINGS: Lungs/Pleura: There is no evidence of pleural effusion, focal consolidation, or pneumothorax. Pulmonary vascularity: Unremarkable. Heart/mediastinum: Cardiomediastinal silhouette is unremarkable. Musculoskeletal: No acute osseous pathology. IMPRESSION: No acute cardiopulmonary disease/process.
--- NOTE | 2023-08-29 22:38 | CT ---
EXAMINATION TYPE: CT lumbar spine wo con CT DLP: 1204.6 mGycm, Automated exposure control for dose reduction was used. DATE OF EXAM: 08/29/2023 8:35 PM COMPARISON: 07/13/2023 CLINICAL INDICATION:Male, 62 years old with history of pain; PHH, LOW BACK PAIN TECHNIQUE: Multiple axial images were obtained from the midportion of T11 through the sacroiliac sera nts. Soft tissue and bone windows in coronal and sagittal planes were obtained and reviewed. 3-D ref ormats of the bones were created on a separate workstation and submitted for review. Contrast used: mL of , (None, if empty). Oral contrast used: (None, if empty). FINDINGS: Alignment: There are 5 lumbar type vertebral bodies within normal alignment. Bone: Compression deformity to the L1 vertebrae which appears chronic. Endplate sclerosis of the adjo ining L5-S1 endplates. Scattered osteophyte formation disc space narrowing. Discs: T12-L1: No spinal canal or neural foraminal stenosis is identified. L1-L2: No spinal canal or neural foraminal stenosis is identified. L2-L3: No spinal canal or neural foraminal stenosis is identified. L3-L4: No spinal canal or neural foraminal stenosis is identified. L4-L5: Disc bulge with moderate spinal canal stenosis and mild to moderate neural foraminal stenosis. L5-S1: Facet arthropathy with moderate to severe bilateral neural foraminal stenosis. Other: None IMPRESSION: 1. Chronic appearing compression deformity of L1 vertebrae. Consider evaluation with MRI to look for bone edema. 2. Mild multiple degeneration changes throughout the majority of the spine with moderate to severe a t L5-S1. 3. Moderate spinal canal stenosis at L4-L5 secondary disc bulge. 4. L5-S1 facet joint arthropathy with moderate to severe bilateral neural foraminal stenosis.
[2023-08-29] MEDS ORDERED: NALOXONE 0.4 MG/ML 1 ML VIAL IV PRN (23:24)
[2023-08-29] MEDS ORDERED: ONDANSETRON 4 MG/2 ML VIAL IVP PRN (23:24)
[2023-08-29] MEDS: NICOTINE 21MG/24HR PATCH TRANSDERM STA (23:48)
[2023-08-29] MEDS: hydrALAZINE HCL 20 MG/ML 1 ML VIAL IVP STA (23:48)
[2023-08-30] MEDS: HYDROcodone/APAP 5-325MG 1 EACH TAB PO PRN (00:55)
[2023-08-30] MEDS: hydrALAZINE HCL 50 MG TAB PO SCH (10:27)
[2023-08-30 10:40] LABS: Appearance,Urine Clear (Clear); Bilirubin,Urine Negative (Negative); Blood,Urine Negative (Negative); Color,Urine Light Yellow; Glucose,Urine (UA) Negative (Negative); Ketones,Urine Negative (Negative); Leukocyte Esterase,Urine Negative (Negative); Mucus,Urine Rare /hpf; Nitrite,Urine Negative (Negative); PH, Urine 5.5 (5.0-8.0); Protein,Urine 1+ (Negative); Specific Gravity,Urine 1.018 (1.001-1.035); Squamous Epithelial Cell,Urine <1 /hpf (0-4); Urobilinogen,Urine <2.0 mg/dL (<2.0); WBC,Urine 1 /hpf (0-5)
[2023-08-30] MEDS: LOSARTAN 25 MG TAB PO SCH (11:59)
[2023-08-30] MEDS: METOPROLOL TARTRATE 50 MG TAB PO SCH (11:59)
--- NOTE | 2023-08-30 16:45 | XR ---
EXAMINATION TYPE: XR orbit pre-MRI foreign body DATE OF EXAM: 08/30/2023 4:07 PM CLINICAL INDICATION:Male, 62 years old with history of Pre-MRI of L/S spine; PHH Rule out foreign body. COMPARISON: None TECHNIQUE: XR orbit pre-MRI foreign body views the orbits frontal, lateral and Gil. FINDINGS: Radiographic evaluation of the orbits fail to demonstrate evidence of an orbital fracture. There is n o radiopaque foreign body identified. The adjacent paranasal sinuses are well aerated an without evid ence of intra-cavitary fluid accumulation. IMPRESSION: No radiographic evidence of radiopaque foreign body.
[2023-08-30] MEDS ORDERED: METOPROLOL TARTRATE 50 MG TAB PO SCH (21:00)
--- NOTE | 2023-08-30 21:43 | PN ---
PROGRESS NOTE DATE OF SERVICE: 08/30/2023 CHIEF COMPLAINT: Weakness and frequent falling. HISTORY OF PRESENT ILLNESS: This gentleman came to the emergency room after he had repeated episodes of falling. He was in the hospital not long ago for leg weakness and transferred to a [place] [facility]. He was discharged and kept falling and was placed back in. He just left the [place] [facility] a few days ago and he can't walk or manage. PHYSICAL EXAMINATION: VITAL SIGNS: His blood pressure is slightly high. CHEST: Clear. CARDIAC: Normal. ABDOMEN: Soft, nontender. IMPRESSION: 1. Frequent falling. 2. Lower extremity weakness. PLAN: 1. PT and OT as well as repeat discharge planning. 2. MRI of the LS spine to ensure that he does not have any compressive neuropathy. MMODL / HANN: [id number] /
--- NOTE | 2023-08-30 21:58 | HP ---
HISTORY AND PHYSICAL CHIEF COMPLAINT: Frequent falling and general debility. HISTORY OF PRESENT ILLNESS: This is another admission for this 62-year-old male. He was in the hospital a month or 2 ago with weakness and falling. I believe he was discharged from the hospital, went home and fell again. He came back in and was sent to group home. He apparently got out of there several days ago and he has been falling ever since. He has had no significant injuries. He does not have any leg strength. REVIEW OF SYSTEMS: Otherwise unremarkable and unchanged. He is not incontinent. PHYSICAL EXAMINATION: VITAL SIGNS: Normal. HEAD, EARS, EYES, NOSE, MOUTH, AND THROAT: Normal. CHEST: Clear. CARDIAC: Normal. ABDOMEN: Soft and nontender. EXTREMITIES: Normal and he seems to have strength in the legs. IMPRESSION: 1. Frequent falling. 2. General debility. 3. Bilateral leg weakness. PLAN: 1. Bed rest. 2. PT, OT, and [facility] referral. 3. MRI of the LS spine. MMODL / IJN: [id number] /
[2023-08-31] MEDS: TAMSULOSIN 0.4 MG CAP.ER.24H PO SCH (08:51)
[2023-08-31] MEDS ORDERED: LOSARTAN 25 MG TAB PO SCH (09:00)
--- NOTE | 2023-08-31 21:28 | PN ---
PROGRESS NOTE DATE OF SERVICE: 08/31/2023 CHIEF COMPLAINT: Generalized weakness and inability to ambulate with frequent falling. HISTORY OF PRESENT ILLNESS: This gentleman is doing fairly well and MRIs have been ordered of the spine to see if there is a possibility of any impingement. CT of the LS spine suggests that there may be. PHYSICAL EXAMINATION: CHEST: Clear. CARDIAC: Normal. ABDOMEN: Soft, and nontender. IMPRESSION: Frequent falling with lower extremity weakness. PLAN: MRIs of the spine. MMODL / IJN: [id number] /
--- NOTE | 2023-09-01 20:40 | PN ---
PROGRESS NOTE DATE OF SERVICE: 09/01/2023 CHIEF COMPLAINT: Frequent falling and weakness in lower extremities. General debility. HISTORY OF PRESENT ILLNESS: This gentleman is the same. We are waiting for results of the MRIs which have been ordered. PHYSICAL EXAMINATION: CHEST: Clear. CARDIAC: Normal. ABDOMEN: Soft, nontender. IMPRESSION: 1. General debility and frequent falling. 2. Lower extremity weakness. PLAN: Await results of MRI. MMODL / IJN: [id number] /
--- NOTE | 2023-09-02 23:22 | MR ---
EXAMINATION TYPE: MR lumbar spine wo/w con DATE OF EXAM: 09/02/2023 2:00 PM CLINICAL INDICATION:Male, 62 years old with history of trauma with lumbar pain; PHH, Fall within last year COMPARISON: None TECHNIQUE: Multi planar, multi sequence imaging was performed utilizing: T1-weighted, T2-weighted, a nd turbo inversion recovery imaging of the lumbar spine. IV Contrast: 7 cc Gadavist. (None if empty) FINDINGS: Alignment: The lumbar vertebral bodies have preserved heights and alignment. Cord: The conus medullaris and the distal spinal cord appear unremarkable with regards to their signa l intensity and morphology. Bones/Discs: There is bony edema within the L1 vertebrae with compression of the 50% of the superior endplate there is minimal retropulsion up to 2 mm. T12-L1: No evidence of significant spinal canal stenosis or neural foraminal stenosis. L1-L2: No evidence of significant spinal canal stenosis or neural foraminal stenosis. L2-L3: No evidence of significant spinal canal stenosis or neural foraminal stenosis. L3-L4: No evidence of significant spinal canal stenosis or neural foraminal stenosis. L4-L5: Disc bulge and facet joint arthropathy without significant spinal canal stenosis and mild bila teral neural foraminal stenosis. L5-S1: The disc is rounded posterior morphology without significant spinal canal stenosis. Facet join t arthropathy with severe bilateral neural foraminal stenosis. No significant spinal canal or neural foraminal stenosis in the remainder of the visualized levels. Other findings: None. IMPRESSION: 1. Bony edema within the L1 vertebrae's distal of Acute/subacute compression fracture with 50% heigh t loss and minimal/2 mm retropulsion. No significant spinal canal or neural foraminal stenosis. 2. No definitive evidence of disc herniation or significant spinal canal stenosis. 3. Mild disc degeneration with associated osteoarthritic changes. No foraminal stenosis worse at L5- S1 with severe bilateral.
--- NOTE | 2023-09-03 13:30 | MR ---
MRI thoracic spine with and without contrast. HISTORY: Paresthesias. COMPARISON: None. TECHNIQUE: Multiecho multiplanar images of the thoracic spine were obtained with and without contrast . FINDINGS: The thoracic vertebral segments are normal in height and alignment and there is no fracture or sublux ation. There is an moderate acute compression fracture of the superior endplate of L1. See MRI spine dated 09/02/2023. The thoracic cord is normal in size and signal intensity. There is no pathological enhancement. There is no epidural or paraspinal soft tissue mass or fluid collection. The disc spaces are well-maintained and there is no significant degenerative disc disease. There is no thoracic disc herniation. The neuroforamen appear patent. IMPRESSION: 1. No significant abnormality of the thoracic spine. 2. Acute moderate superior endplate compression fracture of L1. See MRI lumbar spine dated 09/02/2023
--- NOTE | 2023-09-03 20:34 | PN ---
PROGRESS NOTE DATE OF SERVICE: 09/02/2023 CHIEF COMPLAINT: Leg weakness and frequent falling. HISTORY OF PRESENT ILLNESS: This gentleman is being evaluated for the possibility of a spinal issue. It looks like he has a compression fracture at L1. MRI is pending. PHYSICAL EXAMINATION: CHEST: Clear. CARDIAC: Normal. ABDOMEN: Soft. Nontender. EXTREMITIES: He is able to walk, but not securely. MMODL / IJN: [id number] /
--- NOTE | 2023-09-04 21:25 | PN ---
PROGRESS NOTE DATE OF SERVICE: 09/03/2023 CHIEF COMPLAINT: Frequent falling and lower extremity weakness. HISTORY OF PRESENT ILLNESS: This gentleman is about the same. The MRI report is pending to rule out any cord lesion that could be related to his neurologic symptoms. Other than that, he is stable. PHYSICAL EXAMINATION: Normal. VITAL SIGNS: Normal. CHEST: Clear. CARDIAC: Normal. IMPRESSION: Frequent falling and lower extremity weakness. PLAN: Await results of MRI as well as a discharge plan. MMODL / IJN: [id number] /
--- NOTE | 2023-09-04 21:40 | PN ---
PROGRESS NOTE CHIEF COMPLAINT: Lower extremity weakness and frequent falling. HISTORY OF PRESENT ILLNESS: This gentleman is doing well. The MRI fails to demonstrate any significant abnormality to explain his lower extremity issues. PHYSICAL EXAMINATION: CHEST: Clear. CARDIAC: Normal. ABDOMEN: Soft, nontender. IMPRESSION: Frequent falling with lower extremity weakness. PLAN: Turned attention now to his suitable discharge plan. MMODL / IJN: [id number] /
--- NOTE | 2023-09-05 20:21 | PN ---
PROGRESS NOTE DATE OF SERVICE: 09/05/2023 CHIEF COMPLAINT: Lower extremity weakness and frequent falling. HISTORY OF PRESENT ILLNESS: This gentleman is stable. His MRI failed to demonstrate any pathology that might explain his lower extremity weakness. At this point, he can be discharged. It is not clear where he is going to go. He has been in nursing homes and then out only to keep falling. PHYSICAL EXAMINATION: CHEST: Clear. CARDIAC: Normal. ABDOMEN: Soft, nontender. IMPRESSION: General debility and weakness in the lower extremities with frequent falls. PLAN: He can be discharged any time. It is hoped that he can get into some type of an assisted living situation where he will be safe. MMODL / IJN: [id number] /
[2023-09-06 09:23] VITALS: BMI 31.0
--- NOTE | 2023-09-07 03:44 | PN ---
PROGRESS NOTE DATE OF SERVICE: 09/06/2023 CHIEF COMPLAINT: Spastic paraparesis and frequent falling. HISTORY OF PRESENT ILLNESS: This gentleman is stable and they were having to look for a place for him to go. He cannot manage on his own. PHYSICAL EXAMINATION: Unchanged. CHEST: Clear. CARDIAC: Normal. ABDOMEN: Soft, nontender. IMPRESSION: Lower extremity weakness and paraparesis with frequent falling. PLAN: Social Service is looking at a discharge plan. MMODL / IJN: [id number] /
--- NOTE | 2023-09-08 01:18 | PN ---
PROGRESS NOTE DATE OF SERVICE: 09/07/2023 CHIEF COMPLAINT: Lower extremity weakness, frequent falling and general debility with failure to thrive. HISTORY OF PRESENT ILLNESS: This gentleman is stable and there has been no change. We are now awaiting some type of a discharge plan. PHYSICAL EXAMINATION: CHEST: Clear. CARDIAC: Normal. ABDOMEN: Soft, nontender. NEUROLOGIC: He is intact. IMPRESSION: Lower extremity weakness with frequent falling. PLAN: Await discharge plan. MMODL / IJN: [id number] /
--- NOTE | 2023-09-08 12:18 | DS ---
DISCHARGE SUMMARY CHIEF COMPLAINT: Frequent falling, lower extremity weakness, and general debility. HISTORY OF PRESENT ILLNESS AND PHYSICAL EXAMINATION: Details of this man's history and physical can be found in the initial workup. LABORATORY STUDIES: While he was in the hospital, he had laboratory studies, details of which can be found in the laboratory section of his chart. COURSE IN THE HOSPITAL: After admission, he was placed at bedrest and started on workup for his lower extremity weakness and frequent falling. He was seen by Neurology. Studies were obtained looking for anything that might be related to his lower extremity issues and no abnormalities were identified. Discharge planning was a problem because he had been in nursing homes, discharged and then abruptly would fall and come back in. It was decided that he be tried again as an outpatient and will be followed by home care agency. FINAL DIAGNOSES: 1. Frequent falling. 2. Lower extremity weakness. 3. Spastic paraparesis. OPERATIONS: None. CONSULTATION: Neurology. He is improved. MMTYRONE / DENIZ: [id number] /
[2023-09-08 14:52] VITALS: BP 149/84; PULSE 66; RESP 18; TEMP 98.3
== END 2023-09-08 17:24 | disposition home health service (06) ==
LOC: EC 18:55 → 5NMEDONC 23:25
PROVIDERS: ADMIT Family Medicine; ATTEND Family Medicine
DX: W19.XXXA Unspecified fall, initial encounter (principal); G82.20 Paraplegia, unspecified; I10 Essential (primary) hypertension; R29.6 Repeated falls; Z83.3 Family history of diabetes mellitus; Z87.828 Personal history of other (healed) physical injury and trauma
CPT/HCPCS: 96361 ×2; 96374; 99285; 93005; 97530 ×4; 97162; 97167; 80053; 83605; 83735; 84484; 85025; 85610; 85730; 81001; 87636; 70030; 71046; 72131; 70450; 72157; 72158; G0378 ×11; S4990; J0360; A9585 ×2

== ENCOUNTER 2023-09-10 11:18 | Inpatient (IN) | payer MEDICARE ==
--- NOTE | 2023-09-10 11:55 | ED ---
General Adult HPI - General Chief complaint: Fall Stated complaint: fall Time Seen by Provider: 09/10/23 11:26 Source: patient Mode of arrival: wheelchair Limitations: no limitations - History of Present Illness Initial comments: Dictation was produced using [employer] dictation software. please excuse any grammatical, word or spelling errors. Chief Complaint: 62-year-old male presents with falls and debility History of Present Illness: Patient 62-year-old male with multiple comorbidities. He is well-known to Dr. Mccormack's service. Patient states he is here because he cannot care for himself at home he states he lives at home by himself. States that he is weak in his legs and has been falling. Denies any pain complaints. Chart review shows that patient had discharge summary from September 07 states that he was here multiple occasions for frequent falls and grave disability. Most recently on he was discharged back to home. According to documentation patient has a history of spastic paraparesis, lower extremity weakness and frequent falling. The ROS documented in this emergency department record has been reviewed and confirmed by me. Those systems with pertinent positive or negative responses have been documented in the HPI. All other systems are other negative and/or noncontributory. - Related Data Home Medications Medication Instructions Recorded Confirmed Losartan [Cozaar] 25 mg PO DAILY 07/02/23 09/10/23 Metoprolol Tartrate [Lopressor] 50 mg PO BID 07/02/23 09/10/23 NIFEdipine XL [Procardia XL] 60 mg PO BID 07/02/23 09/10/23 Tamsulosin [Flomax] 0.4 mg PO DAILY 07/02/23 09/10/23 hydrALAZINE HCL [Apresoline] 50 mg PO Q8H 07/02/23 09/10/23 Allergies Allergy/AdvReac Type Severity Reaction Status Date / Time No Known Allergies Allergy Verified 09/10/23 11:24 Review of Systems ROS Statement: Those systems with pertinent positive or pertinent negative responses have been documented in the HPI. ROS Other: All systems not noted in ROS Statement are negative. Past Medical History Past Medical History: Hypertension, Liver Disease, Osteoarthritis (OA) Additional Past Medical History / Comment(s): 02/04/17 cellulitis L leg, HEPATITIS C treated with interferon but returned-pt now self treating with HENRY 52, arthritis bilateral knees and in the past affected his thumbs, head injury in 1986 with blood clot on brain with surgery, RETAIN FLUID IN LEGS, low back pain with L sided sciatica, sinusitis, multiple falls History of Any Multi-Drug Resistant Organisms: MRSA Date of last positivie culture/infection: 04/29/17 MDRO Source:: KNEE,BLOOD Past Surgical History: Orthopedic Surgery Additional Past Surgical History / Comment(s): RIGHT KNEE ARTHROSCOPIC , TOTAL RIGHT KNEE, TOTAL LEFT KNEE in 2012, revision of meniscus in June 2013, left total knee revision in January 2017, BLOOD CLOT REMOVED FROM BRAIN, colonoscopy. Past Anesthesia/Blood Transfusion Reactions: No Reported Reaction Past Psychological History: Anxiety, Depression Smoking Status: Current every day smoker Past Alcohol Use History: None Reported Past Drug Use History: None Reported - Past Family History Mother Family Medical History: Diabetes Mellitus Additional Family Medical History / Comment(s): Mother is 90 yrs old. Father Family Medical History: Diabetes Mellitus Additional Family Medical History / Comment(s): Father is . General Exam - General Exam Comments Initial Comments: PHYSICAL EXAM: General Impression: Alert and oriented x3, not in acute distress HEENT: Normocephalic atraumatic, extra-ocular movements intact, pupils equal and reactive to light bilaterally, mucous membranes moist. Cardiovascular: Heart regular rate and rhythm Chest: Able to complete full sentences, no retractions, no tachypnea Abdomen: abdomen soft, non-tender, non-distended, no organomegaly Musculoskeletal: Pulses present and equal in all extremities, no peripheral edema Motor: no focal deficits noted Neurological: CN II-XII grossly intact, no focal motor or sensory deficits noted Skin: Intact with no visualized rashes Psych: Normal affect and mood Limitations: no limitations Course Vital Signs 09/10/23 11:21 Temperature 98.4 F Pulse Rate 102 H Respiratory 20 Rate Blood Pressure 192/102 O2 Sat by Pulse 99 Oximetry EKG Findings - EKG Comments: EKG Findings:: My EKG interpretation: Ventricular rate 100, sinus tachycardia,. 06/13/1936, QRS 109, QTc 420. No CT prolongation, no QTC prolongation, no ST or T-wave changes noted. EKG compared to August 29, 2023 showing no changes. Overall, this EKG is unremarkable Medical Decision Making - Medical Decision Making Was pt. sent in by a medical professional or institution (Dr., PA, MEDICAL INSTRUCTOR, urgent care, hospital, or long-term...) When possible be specific @ -No Did you speak to anyone other than the patient for history (EMS, parent, family, police, friend...)? What history was obtained from this source @ -No Did you review nursing and triage notes (agree or disagree)? Why? @ -I reviewed and agree with nursing and triage notes Were old charts reviewed (outside hosp., previous admission, EMS record, old EKG, old radiological studies, urgent care reports/EKG's, long-term records)? Report findings @ -No old charts were reviewed Differential Diagnosis (chest pain, altered mental status, abdominal pain women, abdominal pain men, vaginal bleeding, musculoskeletal, weakness, fever, dyspnea, syncope, headache, dizziness, GI bleed, back pain, seizure, CVA, palpatations, mental health)? @ -Differential Weakness: Hypoglycemia, shock, sepsis, hyponatremia, anemia, infection, AK, ETOH, adverse medicine reaction, overdose, stroke, this is not meant to be an all-inclusive list. EKG interpreted by me (3pts min.). @ -See above X-rays interpreted by me (1pt min.). @ -Chest x-ray pelvis x-ray is unremarkable for any acute processes. CT interpreted by me (1pt min.). @ -CT brain and C-spine shows no acute processes. U/S interpreted by me (1pt. min.). @ -None done What testing was considered but not performed or refused? (CT, X-rays, U/S, labs)? Why? @ -None What meds were considered but not given or refused? Why? @ -None Did you discuss the management of the patient with other professionals (professionals i.e. KLEVER Cooney, MEDICAL INSTRUCTOR, lab, RT, psych nurse, social services aide, event crew technician, teacher, hospital chief financial officer, case packer and sealer)? Give summary @ -Case discussed with Dr. Mccormack, patient's primary care physician recommended inpatient admission Was smoking cessation discussed for >3mins.? @ -No Was critical care preformed (if so, how long)? @ -No Were there social determinants of health that impacted care today? How? (Homelessness, low income, unemployed, alcoholism, drug addiction, transportation, low edu. Level, literacy, decrease access to med. care, fdc, rehab)? @ -Poor social situation Was there de-escalation of care discussed even if they declined (Discuss DNR or withdrawal of care, Hospice)? DNR status @ -No What co-morbidities impacted this encounter? (DM, HTN, Smoking, COPD, CAD, Cancer, CVA, ARF, Chemo, Hep., AIDS, mental health diagnosis, sleep apnea, morbi d obesity)? @ -None Was patient admitted / discharged? Hospital course, mention meds given and rout e, prescriptions, significant lab abnormalities, going to OR and other pertinent info. @ -62-year-old male with frequent falls generalized weakness. Patient has been in the hospital for this in the past. Vital signs upon arrival are within acceptable limits. Physical examination is benign. Labs and imaging is negative. Case discussed with patient's primary care doctor requested that he be admitted for placement. Undiagnosed new problem with uncertain prognosis? @ -No Drug Therapy requiring intensive monitoring for toxicity (Heparin, Nitro, Insulin, Cardizem)? @ -No Were any procedures done? @ -No Diagnosis/symptom? Acute, or Chronic, or Acute on Chronic? Uncomplicated (without systemic symptoms) or Complicated (systemic symptoms)? @ -Gravely disabled Side effects of treatment? @ -No Exacerbation, Progression, or Severe Exacerbation? @ -No Poses a threat to life or bodily function? How? (Chest pain, USA, AK, pneumonia, PE, COPD, DKA, ARF, appy, cholecystitis, CVA, Diverticulitis, Homicidal, Suicidal, threat to staff... and all critical care pts) @ -No - Lab Data Result diagrams: 09/10/23 12:00 09/10/23 12:00 Lab Results 09/10/23 09/10/23 Range/Units 12:00 12:00 WBC 9.4 (3.8-10.6) k/uL RBC 5.23 (4.30-5.90) m/uL Hgb 14.6 (13.0-17.5) gm/dL Hct 46.4 (39.0-53.0) % MCV 88.7 (80.0-100.0) fL MCH 28.0 (25.0-35.0) pg MCHC 31.5 (31.0-37.0) g/dL RDW 14.3 (11.5-15.5) % Plt Count 348 (150-450) k/uL MPV 7.2 Neutrophils % 75 % Lymphocytes % 16 % Monocytes % 6 % Eosinophils % 1 % Basophils % 1 % Neutrophils # 7.0 (1.3-7.7) k/uL Lymphocytes # 1.5 (1.0-4.8) k/uL Monocytes # 0.6 (0-1.0) k/uL Eosinophils # 0.1 (0-0.7) k/uL Basophils # 0.1 (0-0.2) k/uL Sodium 140 (137-145) mmol/L Potassium 4.1 (3.5-5.1) mmol/L Chloride 105 (98-107) mmol/L Carbon Dioxide 25 (22-30) mmol/L Anion Gap 10 mmol/L BUN 20 (9-20) mg/dL Creatinine 1.46 H (0.66-1.25) mg/dL Est GFR (CKD-EPI)AfAm 58 (>60 ml/min/1.73 sqM) Est GFR (CKD-EPI)NonAf 51 (>60 ml/min/1.73 sqM) Glucose 107 H (74-99) mg/dL Calcium 9.7 (8.4-10.2) mg/dL Disposition Clinical Impression: Gravely disabled Disposition: ADMITTED IP TO THIS HOSP Condition: Fair Referrals: None,Stated [Primary Care Provider] - 1-2 days Decision Time: 13:52
[2023-09-10 12:45] LABS: Basophils # (A) 0.1 k/uL (0-0.2); Basophils % (A) 1 %; Eosinophils # (A) 0.1 k/uL (0-0.7); Eosinophils % (A) 1 %; HCT 46.4 % (39.0-53.0); HGB 14.6 gm/dL (13.0-17.5); Lymphocytes # (A) 1.5 k/uL (1.0-4.8); Lymphocytes % (A) 16 %; MCHC 31.5 g/dL (31.0-37.0); MCV 88.7 fL (80.0-100.0); Mean Platelet Volume 7.2; Monocytes # (A) 0.6 k/uL (0-1.0); Monocytes % (A) 6 %; Neutrophils % (A) 75 %; Platelet Count 348 k/uL (150-450); RBC 5.23 m/uL (4.30-5.90); RDW 14.3 % (11.5-15.5); WBC 9.4 k/uL (3.8-10.6)
[2023-09-10 13:11] LABS: African American GFR (CKD) 58 (>60 ml/min/1.73 sqM); Anion Gap 10 mmol/L; Blood Urea Nitrogen 20 mg/dL (9-20); Calcium 9.7 mg/dL (8.4-10.2); Carbon Dioxide 25 mmol/L (22-30); Chloride 105 mmol/L (98-107); Glucose 107 mg/dL (74-99); Non-African American GFR(CKD) 51 (>60 ml/min/1.73 sqM); Potassium 4.1 mmol/L (3.5-5.1); Sodium 140 mmol/L (137-145)
--- NOTE | 2023-09-10 13:18 | XR ---
EXAMINATION TYPE: XR chest 1V DATE OF EXAM: 09/10/2023 COMPARISON: 08/29/2023 INDICATION: Frequent falls TECHNIQUE: Single frontal view of the chest is obtained. FINDINGS: The heart size is normal. The pulmonary vasculature is normal. The lungs are clear. No pneumothorax. Azygous fissure is present, normal variant. No displaced rib fractures evident. IMPRESSION: 1. No acute pulmonary process. 2. No acute posttraumatic changes.
--- NOTE | 2023-09-10 13:19 | XR ---
EXAMINATION TYPE: XR pelvis AP view DATE OF EXAM: 09/10/2023 COMPARISON: 07/02/2023 HISTORY: Frequent falls TECHNIQUE: AP pelvis FINDINGS: Femoral heads articulate with the acetabulum. Orientation of the left femoral neck is stabl e from the prior study. No acute fractures identified. This pubis and sacroiliac joints are normal. N onspecific bowel gas is present. IMPRESSION: 1. No acute osseous abnormality AP pelvis.
--- NOTE | 2023-09-10 13:25 | CT ---
EXAMINATION TYPE: CT brain don wo con DATE OF EXAM: 09/10/2023 COMPARISON: 08/29/2023 HISTORY: frequent falls CT DLP: 1476.5 mGycm, Automated exposure control for dose reduction was used. CONTRAST: Patient injected with 0 mL of Isovue 300. CT of the brain is performed utilizing 3 mm thick sections through the posterior fossa and 3 mm thick sections through the remaining calvarium. Study is performed within 24 hours of arrival to the hospital. No abnormal hyperdensity is present to suggest an acute intracranial hemorrhage. No mass lesion is evident. No acute infarcts are evident. 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 This could be postt raumatic encephalomalacia. There may be an old subcortical infarct of the right frontal lobe present previously. Periventricular white matter hypodensity is present, likely on the basis of chronic white matter ischemic change. Old ischemic change of the right temporal lobe appears to be present. Ventricles and sulci are mildly prominent for the patient age. Paranasal sinuses and mastoid air cells within the [id number]-[id number] are clear. IMPRESSIONS: 1. Chronic ischemic changes and chronic white matter changes, stable from recent comparison. 2. Follow-up MRI can be performed as clinically indicated. CT cervical spine. COMPARISON: None CT of the cervical spine is performed in the axial plane at 2 mm thick sections. Reconstructed image s in the coronal, and sagittal plane are reviewed on the computer. No acute fractures are evident. Vertebral body alignment is normal. Narrowing of disc height C4-5. Minimal narrowing of the C5-6 disc height may be present. Vertebral body heights are preserved. No spinal canal stenosis is evident. No neural foraminal stenosis is evident. Some mild uncovertebral joint hypertrophy is within the mid to lower cervical spine. IMPRESSION: 1. No acute osseous abnormality cervical spine. 2. Mild degenerative disc changes C4-5
[2023-09-10] MEDS ORDERED: NALOXONE 0.4 MG/ML 1 ML VIAL IV PRN (13:44)
[2023-09-10] MEDS: SODIUM CHLORIDE 0.9% 1,000 ML IV SCH (14:43)
[2023-09-10] MEDS: hydrALAZINE HCL 50 MG TAB PO SCH (15:04)
[2023-09-10] MEDS: TAMSULOSIN 0.4 MG CAP.ER.24H PO SCH (15:04)
[2023-09-10] MEDS: LOSARTAN 25 MG TAB PO SCH (15:14)
[2023-09-10] MEDS: METOPROLOL TARTRATE 50 MG TAB PO SCH (21:03)
[2023-09-11] MEDS: ACETAMINOPHEN TAB 325 MG TAB PO PRN (22:08)
--- NOTE | 2023-09-12 13:51 | HP ---
HISTORY AND PHYSICAL CHIEF COMPLAINT: Frequent falling and debility. HISTORY OF PRESENT ILLNESS: This gentleman was discharged at the end of the week, went home, started falling again and came back in. REVIEW OF SYSTEMS: He is having no symptoms of pain, chest pain, syncope, etc. Past medical history, family history, personal and social histories are all otherwise unremarkable or unchanged. PHYSICAL EXAMINATION: VITAL SIGNS: Normal. HEAD, EARS, EYES, NOSE, MOUTH AND THROAT: Normal. NECK: Carotids are normal. CHEST: Clear. CARDIAC: Normal. ABDOMEN: Soft, nontender. EXTREMITIES: Normal. NEUROLOGIC: He seems to be intact. ASSESSMENT: He is readmitted with diagnoses of: 1. Frequent falling. 2. Lower extremity paraparesis. 3. General debility. PLAN: 1. Bedrest. 2. Social Service consult for placement. MMODL / IJN: [id number] /
--- NOTE | 2023-09-13 19:48 | PN ---
PROGRESS NOTE DATE OF SERVICE: 09/11/2023 CHIEF COMPLAINT: Inability to ambulate with frequent falling. HISTORY OF PRESENT ILLNESS: This gentleman is doing fairly well. He is asymptomatic. His blood pressure is elevated, and he is being started back on his antihypertensive. REVIEW OF SYSTEMS: He has no complaints of chest pain, headache, shortness of breath, etc. PHYSICAL EXAM: VITAL SIGNS: Blood pressure 192/102. HEAD, EARS, EYES, NOSE, MOUTH, AND THROAT: Normal. CHEST: Clear. CARDIAC EXAM: Normal. ABDOMEN: Soft and nontender. IMPRESSION: 1. Frequent falling. 2. General debility. 3. Failure to thrive. 4. Hypertension. PLAN: Control blood pressure and refer back to [facility] for discharge plan. MMODL / IJN: [id number] /
--- NOTE | 2023-09-13 19:53 | PN ---
PROGRESS NOTE DATE OF SERVICE: 09/12/2023 CHIEF COMPLAINT: Frequent falling, general debility, and weakness with hypertension. HISTORY OF PRESENT ILLNESS: This gentleman is comfortable and has no complaints. Blood pressure is down. PHYSICAL EXAM: CHEST: Clear. CARDIAC EXAM: Normal. IMPRESSION: 1. Frequent falling with lower extremity weakness. 2. Hypertension. PLAN: Control hypertension. Await for a different discharge arrangements than any that he has had so far. MMODL / IJN: [id number] /
--- NOTE | 2023-09-14 22:51 | PN ---
PROGRESS NOTE DATE OF SERVICE: 09/14/2023 CHIEF COMPLAINT: General debility and failure to thrive. HISTORY OF PRESENT ILLNESS: This gentleman is stable. I had a xqyo-ro-[id number] yesterday with his insurance company. Based on the fact that he is able to go up and down the [place] with a walker, he was denied admission to a prison. PHYSICAL EXAMINATION: CHEST: Clear. CARDIAC: Normal. ABDOMEN: Soft, nontender. IMPRESSION: General debility and weakness with frequent falls. PLAN: No change in his management at this time. MMODL / IJN: [id number] /
--- NOTE | 2023-09-14 23:05 | PN ---
PROGRESS NOTE DATE OF SERVICE: 09/13/2023 CHIEF COMPLAINT: Lower extremity weakness. HISTORY OF PRESENT ILLNESS: This gentleman is the same. We are waiting for the aptitude to move him to a long-term. I have a [id number] with the insurance company today. He is doing well. He has no complaints. PHYSICAL EXAMINATION: VITAL SIGNS: Blood pressure is down. CHEST: Clear. CARDIAC: Normal. ABDOMEN: Soft, nontender. IMPRESSION: 1. General debility and weakness. 2. Hypertension. PLAN: Ieqr-my-kxyv with his insurance company today regarding approval for placement in the long-term. MMODL / IJN: [id number] /
[2023-09-15 15:42] VITALS: BMI 31.0
--- NOTE | 2023-09-16 10:28 | CDI ---
Documentation Clarification Form Date: 09/15/2023 12:18:00 PM From: Radha Kothari RN,CCDS Phone: [phone] Admit Date: 09/10/2023 01:46:00 PM Patient Name: Janusz Perla Visit Number: [id number] Discharge Date: ATTENTION: The Clinical Documentation Specialists (CDI) and [facility] Coding Staff appreciate your assistance in clarifying documentation. Please respond to the clarification below the line at the bottom and electronically sign. The CDI & [facility] Coding staff will review the response and follow-up if needed. Please note: Queries are made part of the Legal Health Record. If you have any questions, please contact the author of this message via ITS. Dr. Bobby Mccormack Your patient has the documented symptom of weakness, debility in the H/P and subsequent progress note. Additional clarification regarding the etiology/cause of this symptom is requested. History/Risk Factors: Hypertension, Liver Disease, Osteoarthritis Clinical Indicators: 62-year-old male presents with falls and debility and weakness. 09/09 VS: 192/102 102 20 98.4 99% RA 09/09 CT brain C spine: Chronic ischemic changes and chronic white matter changes, stable from comparison CT of cervical spine: No acute osseous abnormality cervical spine. Mild degenerative disc changes C4-5 Treatment: Physical Therapist consult Occupational Therapy consult Is there a corresponding diagnosis/etiology for this symptom of weakness? [ ] Age related physical debility [ ] Unable to determine [ ] Other, please specify (Template Last Reviewed: July 2020) MTDD
[2023-09-18 22:31] VITALS: RESP 16
--- NOTE | 2023-09-19 02:00 | PN ---
PROGRESS NOTE DATE OF SERVICE: 09/18/2023 CHIEF COMPLAINT: General debility and inability to ambulate without falls. HISTORY OF PRESENT ILLNESS: There has been no change in this gentleman's condition, he is doing well. Blood pressure is under good control. PHYSICAL EXAMINATION: GENERAL: Color is good. CHEST: Clear. CARDIAC: Normal. ABDOMEN: Soft, nontender. IMPRESSION: 1. Spastic paresis with frequent falling and general debility. 2. Hypertension. PLAN: No change in program. MMODL / IJN: [id number] /
--- NOTE | 2023-09-19 03:38 | PN ---
PROGRESS NOTE DATE OF SERVICE: 09/15/2023 CHIEF COMPLAINT: Spastic paraparesis. HISTORY OF PRESENT ILLNESS: This gentleman is doing well with no problems. He is complaining a little bit of back pain. PHYSICAL EXAMINATION: CHEST: Clear. CARDIAC: Normal. IMPRESSION: Spastic paraparesis with frequent falling with hypertension. PLAN: Await an appropriate discharge plan. MMODL / IJN: [id number] /
--- NOTE | 2023-09-19 06:32 | PN ---
PROGRESS NOTE DATE OF SERVICE: 09/17/2023 CHIEF COMPLAINT: Frequent falling. HISTORY OF PRESENT ILLNESS: This gentleman is doing well. There has been no interval change. PHYSICAL EXAMINATION: CHEST: Clear. CARDIAC: Normal. ABDOMEN: Soft, nontender. IMPRESSION: Spastic paraparesis. PLAN: No change in his management and we await his suitable, safe and reasonable discharge plan. MMODL / IJN: [id number] /
[2023-09-19 08:02] VITALS: PULSE 74; TEMP 98.5
--- NOTE | 2023-09-19 08:18 | PN ---
PROGRESS NOTE CHIEF COMPLAINT: Paraparesis. HISTORY OF PRESENT ILLNESS: There has been no progress in a discharge plan. This patient cannot walk and he falls. 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 I had a [id number] discussion with his insurance company and they refused to pay for long-term care because he was able to walk 170 feet with a walker with help from the physical therapist. PHYSICAL EXAMINATION: Unchanged. IMPRESSION: 1. Spastic paraparesis and frequent falling. 2. Hypertension. PLAN: Await for another discharge plan. MMODL / HANN: [id number] /
--- NOTE | 2023-09-19 12:44 | DS ---
DISCHARGE SUMMARY CHIEF COMPLAINT: Recurrent and frequent falling with spastic paraparesis. HISTORY OF PRESENT ILLNESS AND PHYSICAL EXAMINATION: Details of this man's history and physical can be found in the initial workup. LABORATORY STUDIES: While he is in the hospital, he had laboratory studies, details of which can be found in the laboratory section of his chart. COURSE IN THE HOSPITAL: After admission, he was placed at bedrest, . I have placed back on his antihypertensives. I received physical therapy. After peer to peer discussion, his insurance refuses admission to a shelter in the [facility]. However, several days later, they apparently decided to take the patient. He will be transferred on September 18. FINAL DIAGNOSES: 1. Frequent falling. 2. Spastic paraparesis. 3. Hypertension. OPERATIONS: None. CONSULTATIONS: None, he is improved. MARTA / DENIZ: [id number] /
[2023-09-19 13:01] VITALS: BP 152/92
[2023-09-19] MEDS ORDERED: hydrALAZINE HCL 50 MG TAB PO SCH (16:00)
[2023-09-20] MEDS ORDERED: LOSARTAN 50 MG TAB PO SCH (09:00)
--- NOTE | 2023-11-02 18:07 | CDI ---
Documentation Clarification Form Date: 09/15/2023 12:18:00 PM From: Radha Kothari RN, CCDS Phone: [phone] Admit Date: 09/10/2023 01:46:00 PM Patient Name: Janusz Perla Visit Number: [id number] Discharge Date: 09/19/2023 02:53:00 PM ATTENTION: The Clinical Documentation Specialists (CDI) and [facility] Coding Staff appreciate your assistance in clarifying documentation. Please respond to the clarification below the line at the bottom and electronically sign. The CDI & [facility] Coding staff will review the response and follow-up if needed. Please note: Queries are made part of the Legal Health Record. If you have any questions, please contact the author of this message via ITS. Dr. Bobby Mccormack Your patient has the documented symptom of weakness, debility in the H/P and subsequent progress note. Additional clarification regarding the etiology/cause of this symptom is requested. History/Risk Factors: Hypertension, Liver Disease, Osteoarthritis Clinical Indicators: 62-year-old male presents with falls and debility and weakness. 09/09 VS: 192/102 102 20 98.4 99% RA 09/09 CT brain C spine: Chronic ischemic changes and chronic white matter changes, stable from comparison CT of cervical spine: No acute osseous abnormality cervical spine. Mild degenerative disc changes C4-5 Treatment: Physical Therapist consult Occupational Therapy consult Is there a corresponding diagnosis/etiology for this symptom of weakness? [ ] Age related physical debility [ ] Unable to determine [ ] Other, please specify (Template Last Reviewed: July 2020) MTDD
== END 2023-09-19 14:53 | DRG 948 ==
LOC: EC 11:18 → 5NMEDONC 13:46 → INTOOBSV 13:46 → OBSVTOIN 13:46 → 5NMEDONC 19:54
PROVIDERS: ADMIT Family Medicine; ATTEND Family Medicine
DX: R53.1 Weakness (principal); G11.4 Hereditary spastic paraplegia; I10 Essential (primary) hypertension; R62.7 Adult failure to thrive; Z68.31 Body mass index [BMI] 31.0-31.9, adult; F17.210 Nicotine dependence, cigarettes, uncomplicated; M17.0 Bilateral primary osteoarthritis of knee; R29.6 Repeated falls; W19.XXXA Unspecified fall, initial encounter; Z87.828 Personal history of other (healed) physical injury and trauma; Z91.81 History of falling
CPT/HCPCS: 36415; 70450; 71045; 72125; 72170; 80048; 85025; 93005; 96360; 96361; 99285

== ENCOUNTER 2023-10-04 14:10 | Emergency (ER) | payer MEDICARE ==
--- NOTE | 2023-10-04 14:15 | ED ---
General Adult HPI - General Source: patient, EMS, RN notes reviewed Mode of arrival: EMS Limitations: no limitations <Mitesh Mon - Last Filed: 10/04/23 14:14> - General Source: RN notes reviewed, old records reviewed Mode of arrival: EMS Limitations: no limitations - History of Present Illness -: days(s) Location: head Radiation: non-radiation Severity scale (1-10): 6 Quality: sharp Consistency: constant Improves with: none Worsens with: none Associated Symptoms: denies other symptoms <Rohit Cheung - Last Filed: 10/12/23 22:24> - General Stated complaint: Hypertention Time Seen by Provider: 10/04/23 14:10 - History of Present Illness Initial comments: Quick [id number] male presents emergency department with chief complaint of hypertension. Patient states he was checking it at home was found to be elevated. He is out of his lisinopril blood pressure medication. Patient states that he has no complaints of chest pain shortness of breath headache dizziness. Patient called EMS secondary to blood pressure around 200/100. (Mitesh Mon) This is a 62-year-old male to the ER for evaluation of the severe evaluation of hypertension. Patient has severe hypertension found here in the ER but has no headache chest pain shortness of breath or abdominal pain. (Rohit Cheung) - Related Data Previous Rx's Medication Instructions Recorded Losartan [Cozaar] 100 mg PO DAILY #30 tab 10/04/23 Metoprolol Tartrate [Lopressor] 50 mg PO BID #60 tab 10/04/23 NIFEdipine XL [Procardia XL] 60 mg PO BID #60 tab 10/04/23 Tamsulosin [Flomax] 0.4 mg PO DAILY #30 cap 10/04/23 hydrALAZINE HCL [Apresoline] 100 mg PO TID #90 tab 10/04/23 Calcium Carbonate [Tums] 500 mg PO TID PRN tab 10/12/23 Allergies Allergy/AdvReac Type Severity Reaction Status Date / Time No Known Allergies Allergy Verified 10/05/23 07:13 Review of Systems ROS Other: All systems not noted in ROS Statement are negative. <Mitesh Mon - Last Filed: 10/04/23 14:14> ROS Other: All systems not noted in ROS Statement are negative. <Onesimo Cheungophe Manuela - Last Filed: 10/12/23 22:24> ROS Statement: Those systems with pertinent positive or pertinent negative responses have been documented in the HPI. Past Medical History Past Medical History: Hypertension, Liver Disease, Osteoarthritis (OA) Additional Past Medical History / Comment(s): 02/04/17 cellulitis L leg, HEPATITIS C treated with interferon but returned-pt now self treating with HENRY 52, arthritis bilateral knees and in the past affected his thumbs, head injury in 1986 with blood clot on brain with surgery, RETAIN FLUID IN LEGS, low back pain with L sided sciatica, sinusitis, multiple falls, x-etoh , x-cocaine, current marjuana History of Any Multi-Drug Resistant Organisms: MRSA Date of last positivie culture/infection: 04/29/17 MDRO Source:: KNEE,BLOOD Past Surgical History: Orthopedic Surgery Additional Past Surgical History / Comment(s): RIGHT KNEE ARTHROSCOPIC , TOTAL RIGHT KNEE, TOTAL LEFT KNEE in 2012, revision of meniscus in June 2013, left total knee revision in January 2017, BLOOD CLOT REMOVED FROM BRAIN, colonoscopy. Past Anesthesia/Blood Transfusion Reactions: No Reported Reaction Past Psychological History: Anxiety, Depression Additional Psychological History / Comment(s): Pt lives "alone" and has roomate upstairs. He uses a cane to ambulate. Smoking Status: Current every day smoker Past Alcohol Use History: None Reported Additional Past Alcohol Use History / Comment(s): Patient smokes half-1 pack per day since he was 11 years of age. Past Drug Use History: Marijuana Additional Drug Use History / Comment(s): x-cocaine, x-etoh - Past Family History Mother Family Medical History: Diabetes Mellitus Additional Family Medical History / Comment(s): Mother is 90 yrs old. Father Family Medical History: Diabetes Mellitus Additional Family Medical History / Comment(s): Father is . <Mitesh Mon - Last Filed: 10/04/23 14:14> General Exam <Mitesh Mon - Last Filed: 10/04/23 14:14> General appearance: alert, in no apparent distress Head exam: Present: atraumatic, normocephalic, normal inspection Eye exam: Present: normal appearance, PERRL, EOMI. Absent: scleral icterus, conjunctival injection, periorbital swelling ENT exam: Present: normal exam, mucous membranes moist Neck exam: Present: normal inspection. Absent: tenderness, meningismus, lymphadenopathy Respiratory exam: Present: normal lung sounds bilaterally. Absent: respiratory distress, wheezes, rales, rhonchi, stridor Cardiovascular Exam: Present: regular rate, normal rhythm, normal heart sounds. Absent: systolic murmur, diastolic murmur, rubs, gallop, clicks GI/Abdominal exam: Present: soft, normal bowel sounds. Absent: distended, tenderness, guarding, rebound, rigid Extremities exam: Present: normal inspection, full ROM, normal capillary refill. Absent: tenderness, pedal edema, joint swelling, calf tenderness Back exam: Present: normal inspection Neurological exam: Present: alert, oriented X3, CN II-XII intact Psychiatric exam: Present: normal affect, normal mood Skin exam: Present: warm, dry, intact, normal color. Absent: rash <Rohit Cheung - Last Filed: 10/12/23 22:24> - General Exam Comments Initial Comments: Visual Physical Exam Vital signs reviewed General: Well-appearing, nontoxic, no acute distress. Head: Normocephalic, atraumatic Eyes: PERRLA, EOMI ENT: Airway patent Chest: Nonlabored breathing Skin: No visual rash, normal skin tone Neuro: Alert and oriented 3 Musculoskeletal: No gross abnormalities (Mitesh Mon) Course <Rohit Cheung - Last Filed: 10/12/23 22:24> Vital Signs 10/04/23 10/04/23 14:32 18:25 Temperature 98.1 F Pulse Rate 90 70 Respiratory 16 16 Rate Blood Pressure 164/107 170/114 O2 Sat by Pulse 98 98 Oximetry - Reevaluation(s) Reevaluation #1: Medical records reviewed (Rohit Cheung) Reevaluation #2: Patient symptoms unchanged (Rohit Cheung) Reevaluation #3: Informed results and questions answered (Rohit Cheung) Reevaluation #4: Was pt. sent in by a medical professional or institution (, PA, CLINICAL PROGRAMMER, urgent care, hospital, or long term...) When possible be specific @ -no Did you speak to anyone other than the patient for history (EMS, parent, family, police, friend...)? What history was obtained from this source @ -no Did you review nursing and triage notes (agree or disagree)? Why? @ -agree Are old charts reviewed (outside hosp., previous admission, EMS record, old EKG, old radiological studies, urgent care reports/EKG's, long term records)? Report findings @ -yes Differential Diagnosis (chest pain, altered mental status, abdominal pain women, abdominal pain men, vaginal bleeding, weakness, fever, dyspnea, syncope, headache, dizziness, GI bleed, back pain, seizure, CVA, palpatations, mental health, musculoskeletal)? @ -prior EKG interpreted by me (3pts min.). @ -no X-rays interpreted by me (1pt min.). @ -yes negative for acute disease CT interpreted by me (1pt min.). @ -no U/S interpreted by me (1pt. min.). @ -no What testing was considered but not performed or refused? (CT, X-rays, U/S, labs)? Why? @ -none What meds were considered but not given or refused? Why? @ -none Did you discuss the management of the patient with other professionals (professionals i.e. , PA, CLINICAL PROGRAMMER, lab, RT, psych nurse, social services designee, lawyer real estate, teacher, county health officer, hospice case manager)? Give summary @ -no Was smoking cessation discussed for >3mins.? @ -no Was critical care preformed (if so, how long)? @ -no Were there social determinants of health that impacted care today? How? (Homelessness, low income, unemployed, alcoholism, drug addiction, transportation, low edu. Level, literacy, decrease access to med. care, skilled nursing, rehab)? @ -none Was there de-escalation of care discussed even if they declined (Discuss DNR or withdrawal of care, Hospice)? DNR status @ -no What co-morbidities impacted this encounter? (DM, HTN, Smoking, COPD, CAD, Cancer, CVA, ARF, Chemo, Hep., AIDS, mental health diagnosis, sleep apnea, morbid obesity)? @ -none Was patient admitted / discharged? Hospital course, mention meds given and route, prescriptions, significant lab abnormalities, going to OR and other pertinent info. @ -62 male to ER with hypertension uncontrolled hypertension and medication noncompliance patient can be discharged home with medication refilled Discharge Undiagnosed new problem with uncertain prognosis? @ -no Drug Therapy requiring intensive monitoring for toxicity (Heparin, Nitro, Insulin, Cardizem)? @ -no Were any procedures done? @ -no Diagnosis/symptom? @ -Hypertension Acute, or Chronic, or Acute on Chronic? @ -Acute Uncomplicated (without systemic symptoms) or Complicated (systemic symptoms)? @ -Complicated Side effects of treatment? @ -no Exacerbation, Progression, or Severe Exacerbation? @ -exacerbation Poses a threat to life or bodily function? How? (Chest pain, [place], [place], pneumonia, PE, COPD, DKA, ARF, appy, cholecystitis, CVA, Diverticulitis, Homicidal, Suicidal, threat to staff... and all critical care pts) @ -yes with uncontrolled hypertension (Rohit Cheung) Medical Decision Making <Mitesh Mon - Last Filed: 10/04/23 14:14> <Rohit Cheung - Last Filed: 10/12/23 22:24> - Medical Decision Making I completed the quick note portion of this chart signed Mitesh Mon PA-C (Mitesh Mon) 62 male for medication refill for hypertension. Medications are improved given to this patient and he is discharged home (Rohit Cheung) Disposition <Mitesh Mon - Last Filed: 10/04/23 14:14> Is patient prescribed a controlled substance at d/c from ED?: No Time of Disposition: 18:00 <Rohit Cheung - Last Filed: 10/12/23 22:24> Clinical Impression: Hypertension, Noncompliance with medication regimen, Encounter for medication refill Disposition: HOME SELF-CARE Condition: Good Instructions (If sedation given, give patient instructions): Chronic Hypertension (ED) Prescriptions: hydrALAZINE HCL [Apresoline] 100 mg PO TID #90 tab Losartan [Cozaar] 100 mg PO DAILY #30 tab Tamsulosin [Flomax] 0.4 mg PO DAILY #30 cap Metoprolol Tartrate [Lopressor] 50 mg PO BID #60 tab NIFEdipine XL [Procardia XL] 60 mg PO BID #60 tab Referrals: Bobby Mccormack MD [Primary Care Provider] - 1-2 days
[2023-10-04 15:00] VITALS: RESP 16; TEMP 98.1
[2023-10-04 18:30] VITALS: BP 170/114; PULSE 70
[2023-10-04] MEDS: LOSARTAN 25 MG TAB PO STA (18:37)
[2023-10-04] MEDS: TAMSULOSIN 0.4 MG CAP.ER.24H PO STA (18:37)
[2023-10-04] MEDS: METOPROLOL TARTRATE 50 MG TAB PO STA (18:37)
[2023-10-04] MEDS: hydrALAZINE HCL 50 MG TAB PO STA (18:37)
== END 2023-10-04 18:45 | disposition home or self-care (01) ==
LOC: EC 14:10
DX: I10 Essential (primary) hypertension (principal); F17.210 Nicotine dependence, cigarettes, uncomplicated; Z91.148 Patient's other noncompliance with medication regimen for other reason; Z76.0 Encounter for issue of repeat prescription
CPT/HCPCS: 99283

== ENCOUNTER 2023-10-04 21:31 | Observation (INO) | payer MEDICARE ==
[2023-10-04] MEDS ORDERED: NALOXONE 0.4 MG/ML 1 ML VIAL IV PRN (22:09)
[2023-10-04] MEDS ORDERED: ONDANSETRON 4 MG/2 ML VIAL IVP PRN (22:14)
--- NOTE | 2023-10-04 22:24 | ED ---
Recheck HPI - General Chief Complaint: Recheck/Abnormal Lab/Rx Stated Complaint: Weakness Time Seen by Provider: 10/04/23 21:43 Source: patient, RN notes reviewed, old records reviewed Mode of arrival: wheelchair Limitations: no limitations - History of Present Illness Initial Comments: This is a 62-year-old male of self-reported poor historian coming in for elevated blood pressure and uncontrolled blood pressure not taking medication at home secondary to not having medication and per reports of family unable to be returned back home. Patient was seen in the ER earlier today after evaluation for medication refill and hypertension. Patient was discharged home but is incapable of making at home, patient returns to the ER for further evaluation a nd management and placement regarding failure to thrive and grave disability Complaint: medication refill request, other (Gravely disabled) -: days(s) Returns Today for: Called Because of Abnormal Lab/Test, persistent/worsening pain related to initial visit Symptoms Since Prior Visit: no new symptoms Context: planned re-check Associated Symptoms: none Treatments Prior to Arrival: other (0) - Related Data Previous Rx's Medication Instructions Recorded Losartan [Cozaar] 100 mg PO DAILY #30 tab 10/04/23 Metoprolol Tartrate [Lopressor] 50 mg PO BID #60 tab 10/04/23 NIFEdipine XL [Procardia XL] 60 mg PO BID #60 tab 10/04/23 Tamsulosin [Flomax] 0.4 mg PO DAILY #30 cap 10/04/23 hydrALAZINE HCL [Apresoline] 100 mg PO TID #90 tab 10/04/23 Calcium Carbonate [Tums] 500 mg PO TID PRN tab 10/12/23 Allergies Allergy/AdvReac Type Severity Reaction Status Date / Time No Known Allergies Allergy Verified 10/05/23 07:13 Review of Systems ROS Statement: Those systems with pertinent positive or pertinent negative responses have been documented in the HPI. ROS Other: All systems not noted in ROS Statement are negative. Past Medical History Past Medical History: Hypertension, Liver Disease, Osteoarthritis (OA) Additional Past Medical History / Comment(s): 02/04/17 cellulitis L leg, HEPATITIS C treated with interferon but returned-pt now self treating with HENRY 52, arthritis bilateral knees and in the past affected his thumbs, head injury in 1986 with blood clot on brain with surgery, RETAIN FLUID IN LEGS, low back pain with L sided sciatica, sinusitis, multiple falls, x-etoh , x-cocaine, current marjuana History of Any Multi-Drug Resistant Organisms: MRSA Date of last positivie culture/infection: 04/29/17 MDRO Source:: KNEE,BLOOD Past Surgical History: Orthopedic Surgery Additional Past Surgical History / Comment(s): RIGHT KNEE ARTHROSCOPIC , TOTAL RIGHT KNEE, TOTAL LEFT KNEE in 2012, revision of meniscus in June 2013, left total knee revision in January 2017, BLOOD CLOT REMOVED FROM BRAIN, colonoscopy. Past Anesthesia/Blood Transfusion Reactions: No Reported Reaction Past Psychological History: Anxiety, Depression Smoking Status: Current every day smoker Past Alcohol Use History: None Reported Past Drug Use History: Marijuana - Past Family History Mother Family Medical History: Diabetes Mellitus Additional Family Medical History / Comment(s): Mother is 90 yrs old. Father Family Medical History: Diabetes Mellitus Additional Family Medical History / Comment(s): Father is . General Exam Limitations: no limitations General appearance: alert, in no apparent distress Head exam: Present: atraumatic, normocephalic, normal inspection Eye exam: Present: normal appearance, PERRL, EOMI. Absent: scleral icterus, conjunctival injection, periorbital swelling ENT exam: Present: normal exam, mucous membranes moist Neck exam: Present: normal inspection. Absent: tenderness, meningismus, lymphadenopathy Respiratory exam: Present: normal lung sounds bilaterally. Absent: respiratory distress, wheezes, rales, rhonchi, stridor Cardiovascular Exam: Present: regular rate, normal rhythm, normal heart sounds. Absent: systolic murmur, diastolic murmur, rubs, gallop, clicks GI/Abdominal exam: Present: soft, normal bowel sounds. Absent: distended, tenderness, guarding, rebound, rigid Extremities exam: Present: normal inspection, full ROM, normal capillary refill. Absent: tenderness, pedal edema, joint swelling, calf tenderness Back exam: Present: normal inspection Neurological exam: Present: alert, oriented X3, CN II-XII intact Psychiatric exam: Present: normal affect, normal mood Skin exam: Present: warm, dry, intact, normal color. Absent: rash Course Vital Signs 10/04/23 10/04/23 10/05/23 21:43 23:03 00:36 Temperature 98.3 F Pulse Rate 64 82 76 Respiratory 18 18 18 Rate Blood Pressure 169/110 159/110 142/101 O2 Sat by Pulse 100 Oximetry 10/05/23 01:26 Temperature Pulse Rate 80 Respiratory 18 Rate Blood Pressure 135/80 O2 Sat by Pulse Oximetry - Reevaluation(s) Reevaluation #1: 10/04/23 22:18 Medical records reviewed Reevaluation #2: 10/04/23 22:19 Patient symptoms are unchanged Reevaluation #3: 10/04/23 22:19 Patient informed of results questions answered Reevaluation #4: Was pt. sent in by a medical professional or institution (, KLEVER, HAND CEMENTER, urgent care, hospital, or long-term...) When possible be specific @ -no Did you speak to anyone other than the patient for history (EMS, parent, family, police, friend...)? What history was obtained from this source @ -no Did you review nursing and triage notes (agree or disagree)? Why? @ -agree Are old charts reviewed (outside hosp., previous admission, EMS record, old EKG, old radiological studies, urgent care reports/EKG's, long-term records)? Report findings @ -yes Differential Diagnosis (chest pain, altered mental status, abdominal pain women, abdominal pain men, vaginal bleeding, weakness, fever, dyspnea, syncope, headache, dizziness, GI bleed, back pain, seizure, CVA, palpatations, mental health, musculoskeletal)? @ -prior EKG interpreted by me (3pts min.). @ -no X-rays interpreted by me (1pt min.). @ -no CT interpreted by me (1pt min.). @ -no U/S interpreted by me (1pt. min.). @ -no What testing was considered but not performed or refused? (CT, X-rays, U/S, labs)? Why? @ -none What meds were considered but not given or refused? Why? @ -none Did you discuss the management of the patient with other professionals (professionals i.e. KLEVER Cooney, HAND CEMENTER, lab, RT, psych nurse, social service coordinator, business machines teacher, teacher, banking officer, outsole caser)? Give summary @ -no Was smoking cessation discussed for >3mins.? @ -no Was critical care preformed (if so, how long)? @ -no Were there social determinants of health that impacted care today? How? (Homelessness, low income, unemployed, alcoholism, drug addiction, transportation, low edu. Level, literacy, decrease access to med. care, intermediate, rehab)? @ -none Was there de-escalation of care discussed even if they declined (Discuss DNR or withdrawal of care, Hospice)? DNR status @ -no What co-morbidities impacted this encounter? (DM, HTN, Smoking, COPD, CAD, Cancer, CVA, ARF, Chemo, Hep., AIDS, mental health diagnosis, sleep apnea, morbid obesity)? @ -none Was patient admitted / discharged? Hospital course, mention meds given and route, prescriptions, significant lab abnormalities, going to OR and other pertinent info. @ - 62 male to ER with known grave disability, failure to thrive weakness incapable of taking care of oneself. Patient will be admitted for further evaluation and supportive care Admitted Undiagnosed new problem with uncertain prognosis? @ -no Drug Therapy requiring intensive monitoring for toxicity (Heparin, Nitro, Insulin, Cardizem)? @ -no Were any procedures done? @ -no Diagnosis/symptom? @ -Debility gravely disabled Acute, or Chronic, or Acute on Chronic? @ -Acute Uncomplicated (without systemic symptoms) or Complicated (systemic symptoms)? @ -Complicated Side effects of treatment? @ -no Exacerbation, Progression, or Severe Exacerbation? @ -exacerbation Poses a threat to life or bodily function? How? (Chest pain, [place], [place], pneumonia, PE, COPD, DKA, ARF, appy, cholecystitis, CVA, Diverticulitis, Homicidal, Suicidal, threat to staff... and all critical care pts) @ -yes with significant grave disability Reevaluation #5: Differential Weakness: Hypoglycemia, shock, sepsis, hyponatremia, anemia, infection, [place], ETOH, adverse medicine reaction, overdose, stroke, this is not meant to be an all-inclusive list. - Consultations Consultation #1: Poke with Dr. De La Cruz and who agrees to admit this patient Medical Decision Making - Medical Decision Making 62 male to ER with known grave disability, failure to thrive weakness incapable of taking care of oneself. Patient will be admitted for further evaluation and supportive care - Lab Data Result diagrams: 10/05/23 04:40 10/05/23 04:40 Disposition Clinical Impression: Debility, Weakness, Gravely disabled Disposition: ADMITTED IP TO THIS HOSP Condition: Fair Is patient prescribed a controlled substance at d/c from ED?: No Time of Disposition: 22:00
[2023-10-04] MEDS: MORPHINE SULFATE 4 MG/ML SYRINGE IV PRN (23:29)
[2023-10-04] MEDS: SODIUM CHLORIDE 0.9% 1,000 ML IV STA (23:29)
[2023-10-04 23:53] LABS: Basophils # (A) 0.1 k/uL (0-0.2); Basophils % (A) 1 %; Eosinophils # (A) 0.3 k/uL (0-0.7); Eosinophils % (A) 3 %; HCT 43.9 % (39.0-53.0); Lymphocytes # (A) 2.2 k/uL (1.0-4.8); Lymphocytes % (A) 20 %; MCH 27.8 pg (25.0-35.0); MCHC 31.9 g/dL (31.0-37.0); MCV 87.2 fL (80.0-100.0); Mean Platelet Volume 7.2; Monocytes # (A) 0.6 k/uL (0-1.0); Monocytes % (A) 5 %; Neutrophils # (A) 7.7 k/uL (1.3-7.7); Neutrophils % (A) 70 %; Platelet Count 351 k/uL (150-450); RBC 5.03 m/uL (4.30-5.90); RDW 14.2 % (11.5-15.5)
[2023-10-05 00:02] LABS: Partial Thromboplastin Time 27.7 sec (22.0-30.0); Prothrombin Time 10.8 sec (10.0-12.5)
[2023-10-05 00:09] LABS: ALT 21 U/L (4-49); AST 25 U/L (17-59); African American GFR (CKD) 47 (>60 ml/min/1.73 sqM); Albumin 4.4 g/dL (3.5-5.0); Alkaline Phosphatase 86 U/L (38-126); Anion Gap 6 mmol/L; Blood Urea Nitrogen 26 mg/dL (9-20); Calcium 9.7 mg/dL (8.4-10.2); Carbon Dioxide 30 mmol/L (22-30); Chloride 103 mmol/L (98-107); Glucose 71 mg/dL (74-99); Magnesium 2.2 mg/dL (1.6-2.3); Non-African American GFR(CKD) 41 (>60 ml/min/1.73 sqM); Phosphorus 4.2 mg/dL (2.5-4.5); Potassium 3.7 mmol/L (3.5-5.1); Sodium 139 mmol/L (137-145); Total Bilirubin 0.8 mg/dL (0.2-1.3)
[2023-10-05 00:14] LABS: NT-Pro-B-Type Natriuretic Pept 415 pg/mL
[2023-10-05] MEDS: LABETALOL 5 MG/ML VIAL MDV IVP STA (00:23)
[2023-10-05] MEDS: SODIUM CHLORIDE 0.9% 1,000 ML IV STA (01:11)
[2023-10-05] MEDS: SODIUM CHLORIDE 0.9% 1,000 ML IV SCH (01:11)
[2023-10-05] MEDS: HYDROmorphone 0.5 MG/0.5 ML SYRINGE IVP STA (01:19)
[2023-10-05 01:55] LABS: Appearance,Urine Clear (Clear); Bacteria,Urine Rare /hpf; Bilirubin,Urine Negative (Negative); Blood,Urine Negative (Negative); Color,Urine Light Yellow; Glucose,Urine (UA) Negative (Negative); Ketones,Urine Negative (Negative); Leukocyte Esterase,Urine Moderate (Negative); Mucus,Urine Rare /hpf; Nitrite,Urine Negative (Negative); Protein,Urine 2+ (Negative); RBC,Urine 2 /hpf (0-5); Squamous Epithelial Cell,Urine <1 /hpf (0-4); Urobilinogen,Urine <2.0 mg/dL (<2.0); WBC,Urine 56 /hpf (0-5)
[2023-10-05 06:25] LABS: Basophils # (A) 0.1 k/uL (0-0.2); Basophils % (A) 1 %; Eosinophils # (A) 0.4 k/uL (0-0.7); Eosinophils % (A) 4 %; HCT 41.6 % (39.0-53.0); HGB 13.2 gm/dL (13.0-17.5); Lymphocytes % (A) 21 %; MCH 27.8 pg (25.0-35.0); MCHC 31.6 g/dL (31.0-37.0); MCV 87.9 fL (80.0-100.0); Monocytes # (A) 0.5 k/uL (0-1.0); Monocytes % (A) 5 %; Neutrophils # (A) 6.2 k/uL (1.3-7.7); Neutrophils % (A) 68 %; Platelet Count 302 k/uL (150-450); RBC 4.73 m/uL (4.30-5.90); RDW 14.2 % (11.5-15.5); WBC 9.2 k/uL (3.8-10.6)
[2023-10-05 06:44] LABS: ALT 79 U/L (4-49); AST 143 U/L (17-59); African American GFR (CKD) 51 (>60 ml/min/1.73 sqM); Albumin 3.7 g/dL (3.5-5.0); Alkaline Phosphatase 108 U/L (38-126); Anion Gap 7 mmol/L; Blood Urea Nitrogen 24 mg/dL (9-20); Calcium 8.7 mg/dL (8.4-10.2); Carbon Dioxide 25 mmol/L (22-30); Chloride 106 mmol/L (98-107); Glucose 102 mg/dL (74-99); Non-African American GFR(CKD) 44 (>60 ml/min/1.73 sqM); Phosphorus 4.3 mg/dL (2.5-4.5); Potassium 3.6 mmol/L (3.5-5.1); Sodium 138 mmol/L (137-145); Total Bilirubin 0.8 mg/dL (0.2-1.3); Total Protein 6.9 g/dL (6.3-8.2)
[2023-10-05] MEDS: LOSARTAN 50 MG TAB PO SCH (08:14)
[2023-10-05] MEDS: hydrALAZINE HCL 50 MG TAB PO SCH (08:14)
[2023-10-05] MEDS: METOPROLOL TARTRATE 50 MG TAB PO SCH (08:14)
[2023-10-05] MEDS: TAMSULOSIN 0.4 MG CAP.ER.24H PO SCH (08:15)
[2023-10-05] MEDS: HYDROcodone/APAP 5-325MG 1 EACH TAB PO PRN (21:40)
--- NOTE | 2023-10-07 04:57 | HP ---
HISTORY AND PHYSICAL CHIEF COMPLAINT: Falling, back pain, and failure to thrive. HISTORY OF PRESENT ILLNESS: Unbelievably, this gentleman has returned to the community. We had him set up for an assisted living in [place] and it was thought that this would solve the problem of a coming in and out of the hospital. They discharged him and now he is back. REVIEW OF SYSTEMS: He denies any headaches, chest pain, abdominal pain, or any other issues except his back pain. Family history, personal and social histories, etc., all unremarkable. PHYSICAL EXAMINATION: VITAL SIGNS: Normal. HEAD, EARS, EYES, NOSE, MOUTH, AND THROAT: Normal. CHEST: Clear. CARDIAC: Normal. ABDOMEN: Soft and nontender. EXTREMITIES: Normal. IMPRESSION: 1. Frequent falling. 2. Lower extremity weakness. 3. General debility. 4. Arthritis. PLAN: Bedrest and vice president of consulting services referral once again. It is hope that a guardian can be obtained. MMODL / HANN: [id number] /
--- NOTE | 2023-10-07 06:19 | PN ---
PROGRESS NOTE DATE OF SERVICE: 10/05/2023 CHIEF COMPLAINT: General debility, weakness, and inability to ambulate. HISTORY OF PRESENT ILLNESS: This gentleman is the same. Nothing significant. Hand Or Machine Paster will have to find him a location to go which is permanent. MMODL / IJN: [id number] /
--- NOTE | 2023-10-07 06:21 | PN ---
PROGRESS NOTE DATE OF SERVICE: 10/06/2023 CHIEF COMPLAINT: Spastic paraparesis and general debility. HISTORY OF PRESENT ILLNESS: This gentleman is unchanged and we are working on guardianship. PHYSICAL EXAMINATION: VITAL SIGNS: Normal. CHEST: Clear. CARDIAC: Normal. IMPRESSION: General debility with weakness in the lower extremities. PLAN: Obtain guardianship and then placement. MMTYRONE / HANN: [id number] /
[2023-10-07] MEDS: CALCIUM CARBONATE 500 MG CHEWABLE PO PRN (20:48)
[2023-10-07] MEDS ORDERED: CALCIUM CARBONATE 500 MG CHEWABLE PO PRN (20:52)
--- NOTE | 2023-10-08 03:10 | PN ---
PROGRESS NOTE DATE OF SERVICE: 10/07/2023 CHIEF COMPLAINT: Back pain, frequent falling, and general debility. HISTORY OF PRESENT ILLNESS: This gentleman is stable. There has been no change. We are waiting to see if he needs to find a guardian. PHYSICAL EXAMINATION: VITAL SIGNS: Normal. CHEST: Clear. CARDIAC: Normal. EXTREMITIES: Normal. IMPRESSION: 1. Frequent falling. 2. General debility. PLAN: Await guardianship. MMODL / IJN: [id number] /
--- NOTE | 2023-10-10 10:56 | PN ---
PROGRESS NOTE DATE OF SERVICE: 10/08/2023 CHIEF COMPLAINT: General debility and weakness. HISTORY OF PRESENT ILLNESS: There has been no change. We are waiting for guardianship and placement. PHYSICAL EXAMINATION: Unchanged. ABDOMEN: Soft. CHEST: Clear. CARDIAC: Normal. IMPRESSION: General debility and failure to thrive with hypertension. PLAN: No change at this time. MMODL / IJN: [id number] /
--- NOTE | 2023-10-10 11:05 | PN ---
PROGRESS NOTE DATE OF SERVICE: 10/09/2023 CHIEF COMPLAINT: Frequent falling and lower extremity weakness. HISTORY OF PRESENT ILLNESS: This gentleman is stable with no change. PHYSICAL EXAMINATION: CHEST: Clear. CARDIAC: Normal. ABDOMEN: Soft, nontender. IMPRESSION: 1. General debility and weakness with frequent falling. 2. Hypertension. PLAN: Continue current program. MMODL / HANN: [id number] /
--- NOTE | 2023-10-11 08:12 | PN ---
PROGRESS NOTE DATE OF SERVICE: 10/10/2023 CHIEF COMPLAINT: General debility and frequent falling. HISTORY OF PRESENT ILLNESS: This gentleman awaits further efforts to safely discharge him again. MMODL / IJN: [id number] /
[2023-10-11 14:03] VITALS: BMI 25.4
--- NOTE | 2023-10-12 06:12 | PN ---
PROGRESS NOTE DATE OF SERVICE: 10/11/2023 CHIEF COMPLAINT: Frequent falling and general debility. HISTORY OF PRESENT ILLNESS: There has been no interval change in this gentleman's condition. He is awake, alert and stable. His blood pressure is under good control. PHYSICAL EXAMINATION: CHEST: Clear. CARDIAC: Normal. ABDOMEN: Soft and nontender. EXTREMITIES: Normal. IMPRESSION: 1. General debility and failure to thrive. 2. Frequent falling. 3. Hypertension. 4. Back pain. PLAN: Await discharge plan. MMODL / IJN: [id number] /
[2023-10-12 08:59] VITALS: RESP 20
[2023-10-12 17:39] VITALS: BP 136/94; PULSE 68; TEMP 98.8
--- NOTE | 2023-10-17 05:13 | P.DS ---
Providers Date of admission: 10/04/23 22:16 Expected date of discharge: 10/12/23 Attending physician: Bobby Mccormack Primary care physician: Bobby Mccormack Hospital Course: Final diagnosis Generalized weakness with gait dysfunction and frequent falls General debility Mild protein calorie malnutrition with a BMI of 25.5 Hypertension Chronic back pain GI prophylaxis DVT prophylaxis Full code Discharge disposition Patient is being discharged in a stable condition with guarded prognosis to home and arranging for home care. Patient will follow-up with Dr. Mccormack in the outpatient setting upon discharge. Patient is to continue with current medications and close outpatient follow-up with [facility] as scheduled. Total time taken is greater than 35 minutes. Hospital course This is a 62-year-old male who was recently admitted with frequent and recurrent falls with generalized debility and weakness being closely monitored. Patient not eating very well and poor social support with living conditions does have a legal guardian. Patient has had multiple hospitalizations regarding this with no significant improvement. Attempted peer to peer evaluation his insurance was denied for rehab and they continued to deny reporting he has no skillful needs. Patient was evaluated by physical therapy walking over 80 feet. Patient does have a walker and social work following working on discharge planning needs. Please refer to other documentation for further HPI. Currently no reports of chest pain, shortness of breath, or palpitations. Patient is afebrile. No reports of nausea or vomiting and patient is tolerating diet. Patient will be discharged home today. Guarded prognosis and high risk for readmissions given patient's continued poor social support. Physical exam: Gen: This is a 62-year-old male who is awake, alert and oriented x 3, well- developed, well-nourished, elderly appearing HEENT: Head is atraumatic, normocephalic. Pupils equal, round. Sclerae is anicteric. NECK: Supple. No JVD. No lymphadenopathy. No thyromegaly. LUNGS: Clear to auscultation. No wheezes or rhonchi. No intercostal retractions. HEART: Regular rate and rhythm. No murmur. ABDOMEN: Soft. Bowel sounds are present. No masses. No tenderness. EXTREMITIES: No pedal edema. No calf tenderness. NEUROLOGICAL: Patient is awake, alert and oriented x3. Cranial nerves 2 through 12 are grossly intact. Please refer to medication reconciliation sheet for a list of medications. The impression and plan of care has been dictated by Vicki Longoria, Nurse Practitioner as directed. Dr. Geo MD I have performed a history and examination and MDM of this patient, discussed the same with the dictator, and agree with the dictator's assessment and plan as written ,documented as a scribe. Based on total visit time, I have performed more than 50% of the visit. Patient Condition at Discharge: Fair Plan - Discharge Summary New Discharge Prescriptions: New Calcium Carbonate [Tums] 500 mg PO TID PRN tab PRN Reason: Heartburn Continue Losartan [Cozaar] 100 mg PO DAILY #30 tab hydrALAZINE HCL [Apresoline] 100 mg PO TID #90 tab Tamsulosin [Flomax] 0.4 mg PO DAILY #30 cap Metoprolol Tartrate [Lopressor] 50 mg PO BID #60 tab NIFEdipine XL [Procardia XL] 60 mg PO BID #60 tab Discharge Medication List Losartan [Cozaar] 100 mg PO DAILY #30 tab 10/04/23 [Rx] Metoprolol Tartrate [Lopressor] 50 mg PO BID #60 tab 10/04/23 [Rx] NIFEdipine XL [Procardia XL] 60 mg PO BID #60 tab 10/04/23 [Rx] Tamsulosin [Flomax] 0.4 mg PO DAILY #30 cap 10/04/23 [Rx] hydrALAZINE HCL [Apresoline] 100 mg PO TID #90 tab 10/04/23 [Rx] Calcium Carbonate [Tums] 500 mg PO TID PRN tab 10/12/23 [Rx] Follow up Appointment(s)/Referral(s): Bobby Mccormack MD [Primary Care Provider] - 1-2 days (Rehab, please call for follow-up appointment at time of discharge.) Patient Instructions/Handouts: *Surgery [facility] - Knee Arthroscopy Home Instructions Activity/Diet/Wound Care/Special Instructions: Activity limited until follow-up Follow-up with primary care provider this week Continue taking medications as prescribed Discharge Disposition: HOME SELF-CARE
== END 2023-10-12 16:33 | disposition home or self-care (01) ==
LOC: EC 21:31 → EEVIPCON 22:16 → 4SSUR 22:16
PROVIDERS: ADMIT Family Medicine; ATTEND Family Medicine
DX: R53.1 Weakness (principal); I10 Essential (primary) hypertension; T46.5X6A Underdosing of other antihypertensive drugs, initial encounter; Z91.128 Patient's intentional underdosing of medication regimen for other reason; R62.7 Adult failure to thrive; E44.1 Mild protein-calorie malnutrition; Z68.25 Body mass index [BMI] 25.0-25.9, adult; R53.81 Other malaise; M17.0 Bilateral primary osteoarthritis of knee; G89.29 Other chronic pain; M54.9 Dorsalgia, unspecified; R26.9 Unspecified abnormalities of gait and mobility; F17.200 Nicotine dependence, unspecified, uncomplicated; Z79.899 Other long term (current) drug therapy; R29.6 Repeated falls; Z60.8 Other problems related to social environment
CPT/HCPCS: 96376; 96361 ×2; 96375; 96374; 99285; 94760 ×2; 93005; 97530 ×2; 97162; 97166; 83880; 80053 ×2; 83605; 83735 ×2; 84100 ×2; 85025 ×2; 85610; 85730; 81001; G0378 ×9; J2270 ×2; J1170; J1920